=== PATIENT | female | born 1965 | race Caucasian/White ===

== ENCOUNTER 2024-06-05 10:07 | Emergency (ER) | payer OTHER, SELFPAY ==
[2024-06-05 10:14] VITALS: BP 110/72; PULSE 73; RESP 20; TEMP 36.9; O2SAT 99
--- NOTE | 2024-06-05 10:23 | ED.URI ---
HPI - URI/Sore Throat General Chief Complaint: Upper Respiratory Infection Stated Complaint: COVID test Time Seen by Provider: 06/05/24 10:24 Source: patient, RN notes reviewed and old records reviewed Mode of arrival: ambulatory Limitations: no limitations History of Present Illness HPI Narrative: 59 year old female who reports that she tested positive for COVID on Tuesday06/01/2024 with symptoms of illness starting on the 05/30/2024 which included body aches, fevers, cough, sinus congestion. Patient reports that she had diarrhea yesterday denies any nausea or vomiting. Patient reports that she has not taken any aspirin since yesterday morning and has not had any fever for the past 2 days. Patient reports that she did home COVID test yesterday and was still testing positive. MD elicited complaint: other (COVID positive 06/01/2024) Onset (ago): day(s) (symptoms started 05/30/2024, and tested positive for COVID 06/01/2024) Description of mucous: clear Able to tolerate fluids by mouth: Yes Treatments prior to arrival: other (has been taking Claritin and also aspirin with last does of aspirin yesterday) Related Data Home Medications ?Medication ?Instructions ?Recorded ?Confirmed ?Last Taken ?Type No Home Medications 06/05/24 Unknown History Allergies Allergy/AdvReac Type Severity Reaction Status Date / Time ciprofloxacin Allergy Unknown Unknown Verified 06/05/24 10:20 morphine Allergy Unknown Unknown Verified 06/05/24 10:20 Sulfa (Sulfonamide Allergy Unknown Unknown Verified 06/05/24 10:20 Antibiotics) Review of Systems Review of Systems: CONSTITUTIONAL: Denies present feeling of malaise, chills, sweats, or fever. EYES: Denies visual changes, redness, or discharge. ENT: Reports rhinorrhea, congestion, no sinus pain, no otalgia and no sore throat. CARDIOVASCULAR: Denies chest pain, palpitations, or edema. RESPIRATORY: Reports cough.? Denies dyspnea. GASTROINTESTINAL: Denies abdominal pain, nausea, vomiting, diarrhea SKIN: Denies rash or itching. MUSCULOSKELETAL: Denies resolved myalgia. NEUROLOGIC: Denies headache. All systems reviewed & are unremarkable except as noted in HPI and below PMFSH Past Medical History Medical History (Updated 06/05/24 @ 11:20 by Manuela Beaver NP) Bronchitis Social History Social History (Updated 06/05/24 @ 11:21 by Manuela Beaver NP) Alcohol intake: current Alcohol use details: rare social Substance use type: does not use Living arrangements: with family Gender identity (if verbalized by the patient): Female Comments At time of signature, agree with nursing past medical, surgical, social and family history. There is no relevant family history pertinent to the presenting complaint Exam Narrative: GENERAL: Well-appearing, well-nourished, and in no acute distress. HEAD: Normocephalic EYES: PERRLA, conjunctivae clear ENT: Nares clear, turbinates edematous and erythematous, clear discharge. Mucous membranes moist. TM pearly russell with dull light reflex bilaterally; no tragal tenderness. Oropharynx erythematous without lesions. Tonsils not enlarged and without exudate, no drooling, no hoarseness, no trismus, uvula midline.post nasal drainage. NECK: Supple. No lymphadenopathy CHEST: Clear to auscultation, breath sounds equal. No wheezing, rhonchi, rales, or stridor. No respiratory distress, speaks in full sentences.no acute cough noted SAO2 99% on room air HEART: Regular rate and rhythm. No murmur heard. SKIN: Warm, dry, no rash. NEURO: Alert and oriented x3. PSYCH: Normal mood and affect Course Course Emergency Course: Patient is aware of diagnosis, understands and agrees to treatment plan.? Anticipatory guidance given.? Patient agrees to follow-up as directed and is aware of reasons to seek care at the emergency department. Portions of this record may have been created with voice recognition software Level of Care: Express Care Visit Vital Signs Vital signs: Vital Signs Temperature 36.9 C 06/05/24 10:14 Pulse Rate 73 06/05/24 10:14 Respiratory Rate 20 06/05/24 10:14 Blood Pressure 110/72 06/05/24 10:14 Pulse Oximetry 99 06/05/24 10:14 Oxygen Delivery Room Air 06/05/24 10:14 Temperature 36.9 C 06/05/24 10:14 Pulse Rate 73 06/05/24 10:14 Respiratory Rate 20 06/05/24 10:14 Blood Pressure 110/72 06/05/24 10:14 Pulse Oximetry 99 06/05/24 10:14 Oxygen Delivery Room Air 06/05/24 10:14 Reviewed MDM - URI/Sore Throat MDM Narrative Medical decision making narrative: Differential diagnosis considered: Lowry virus, strep pharyngitis, allergic rhinitis, upper respiratory tract infection, sinusitis, rhinosinusitis, nasopharyngitis. viral pharyngitis, otitis media, otitis externa, pneumonia, bronchitis, viral cough syndrome, viral syndrome, and influenza.? Exam findings show no acute concerns or changes; patient is non-toxic appearing and is in no distress.? Patient is appropriate for outpatient treatment and follow-up. Differential Diagnosis Differential diagnosis: Likely upper respiratory infection, sinusitis, viral infection, influenza and other (COVID) Medical Records Attestation: I reviewed the patient's medical records. Lab Data Attestation: I reviewed the patient's lab results. Lab results narrative: COVID antigen positive, influenza A negative, Influenza B negative Critical Care Time Critical Care Time Critical Care Time: No Discharge Plan Discharge Clinical Impression: COVID-19 Patient Disposition: Home, Self-Care Condition: Stable Instructions: How to Recover from COVID-19 at Home (ED) Additional Instructions: Increase fluids especially juices and water Dmje-imd-tagtfdb cough and cold medicine of your choice for your symptoms Zyrtec Claritin or Rafaela daily Tylenol or ibuprofen for any fever pain heat to the face 20-30 minutes 4-6 times a day for pain Salt water gargles, throat lozenges or throat sprays as desired Must be fever free for 24 hours without use of Tylenol or ibuprofen before you can return to work. You actually may test positive for at least 2 weeks after initial infection COVID-19 DISCHARGE The following recommendations have been made by the CDC and local Health Departments, regarding COVID-19: Those individuals with mild cases of COVID-19 can generally be discontinued from isolation, 5 AFTER the onset of symptoms AND the resolution of fever for 24hrs (without the use of fever-reducing medications) Those individuals who were asymptomatic, and tested positive, are discontinued from isolation 10 days AFTER their first positive COVID-19 test Those individuals with SEVERE to CRITICAL illness or immunocompromised diseases may require up to 20 days of home isolation or hospitalization Majority of mild to moderate cases can be treated at home, without hospitalization or prescription medications You do not need a negative test result to return to work/school, assuming the above recommendations have been met and you are not symptomatic. At this time, return to work/school notes will not be provided. Guidelines from the local Health Department, CDC, and workplace are expected to be followed. All individuals in the household need to remained quarantined for up to 14 days if asymptomatic OR 10 days after the start of symptoms. Everyone in the home DOES NOT require testing, they are presumed positive and should quarantine as directed. Treating symptoms for mild to moderate cases may include: Tylenol, Flonase/nasal spray, OTC cold/flu medications recommended from your provider or any necessary prescription medications provided at your visit or from your PCP IF YOU TESTED NEGATIVE If you are symptomatic with reason to believe you have COVID-19, there is a high possibility your rapid test may not have detected the virus. Rapid testing is dependent on timing and viral load and may have a false-negative reading You should follow appropriate guidelines regarding quarantine, hand washing, mask wearing, and social distancing You may be sent for PCR testing as an outpatient to the [facility] site Common Adult Symptoms: Fever/chills Cough Shortness of breath Fatigue, muscle aches Headache Loss of taste/smell Sore throat, congestion, runny nose GI symptoms (nausea, vomiting, diarrhea) Common Pediatric Symptoms Cough Fever GI symptoms (diarrhea, upset stomach, nausea, vomiting) Symptoms may differ in severity however, most cases do not require hospitalization. WHEN TO SEEK ER EVALUATION/TREATMENT Severe/persistent shortness of breath or difficulty breathing Elevated, persistent fevers without resolution with fever-reducing medications Chest pain Extreme fatigue/lethargy Complications of pre-existing disease Patient Language: Cook Islander Prescriptions: No Action No Home Medications Follow-up/Referrals: Denia,Kaveh Kapoor MD [Primary Care Provider] - Stand Alone Forms: Work/School Release IP Time of Disposition: 11:03 Quality Ceci Coma Scale Eyes: Open Verbal: Oriented and Alert Motor: Follows Commands [place] Coma Total Score: 15
[2024-06-05 10:58] LABS: EDCOVIDSCREEN Positive (Negative); EDINFLUASCREEN Negative (Negative); EDINFLUBSCREEN Negative (Negative)
--- OUTSIDE RECORDS SUMMARY | 2024-06-12 04:23 | XMS_ITS | Encounter Summary ---
Author Organization [facility] Address [address] 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 Name Role Phone Unavailable Primary Care Provider Unavailabl e Reason for Visit * Reason Comments Imm Inj Encounter Details Date Type Department Care Team (Late st Contact Info) Description 2016 10:15 AM CDT Office Visit [facility] AT [address] [phone] Screening-pulmonary TB (Primary Dx) Social History Tobacco Use Types Packs/Day Years Used Date Smoking Tobacco: Never Assessed Sex and Gender Information Value Date Recorded Sex Assigned at Not on file Gender Identity Not on file Sexual Orientation Not on file documented as of this encounter Patient Instructions * Patient Instructions* Dawn Chong APRN-CNP - 2016 9:41 AM CDT PPD admin documented in this encounter Progress Notes * Dawn Chong APRN-CNP - 2016 9:51 AM CDT PPD admin documented in this encounter Plan of Treatment Not on file documented as of this encounter Procedures Procedure Name Priority Date/Time Associated Diagnosis Comments SKIN TEST PPD - POINT OF CARE Routine 2016 Screening-pulmonary TB documented in this encounter Results * SKIN TEST PPD - POINT OF CARE (2016) PPD neg MISCELLANEOUS SAMPLE S / Unknown 2016 Dawn Chong APRN-[employer] C[employer]ER SERVICE REPRESENTATIVE LAB - POINT OF CARE ORDERABLES documented in this encounter Visit Diagnoses Diagnosis Screening-pulmonary TB- Primary Screening examination for pulmonary tuberculosis documented in this encounter Administered Medications Administered Medications Medication Order MAR Action Action Date Dose Rate Site PPD Intradermal Given 2016 0.1 mL Left Forearm documented in this encounter
--- OUTSIDE RECORDS SUMMARY | 2024-06-12 04:23 | XMS_ITS | Data Portability ---
Author Organization [facility] Address [address] [place] [address] Assessment No assessment recorded. Plan of Treatment Reminders Order Date Submit Date Provider Last Modified By Organization Details Last Modified Time Details Appointments None recorded. 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 body aches headaches, fever, fatigue. 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 banner 300 2019 020 [facility] ([facility] [address] [place], [address], 0 16:33:00 Referral None recorded. Procedures None recorded. Surgeries None recorded. Imaging None recorded. Medication Orders None recorded. Patient TargetsNo targets recorded. Patient Instructions Encounter Date Encounter Id Patient Instructions Last Modified By Organization Details Last Modified Time 12/21/2019 [id number] Reviewed the following recommendations: -Stay home and separate from others as much as possible. -Monitor your symptoms and seek medical attention for trouble breathing, persistent chest pain, confusion, or bluish lips or face. -Wear a mask if you must be around other people. -Wash your hands often for 20 seconds with soap and water and clean high-touch surfaces daily -You may discontinue home isolation if your symptoms are improving and it has been 10 days since symptoms started. [email or web address] Not available 12/21/2019 14:19:49 Reason for Referral None Reported. 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 Negat vern resul ts must be combi catalina with clini trixie obser vatio ns, patie nt histo ry, and epide miolo gical infor matio n Perfo rmanc e rachel cteri stics for the TaqPa th COVID -19 Combo , Real- time PCR Diagn ostic test have been deter mined by the [facility] harsh kwong and are incor porat ed as part of the Emerg ency Use Autho rizat ion. 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 [id number] Not Available [facility] (Lab) [address] [place], [address], 12/24/2019 16:33:00 Result Notes None recorded. Medical Equipment None Reported. Vitals None Recorded Social History None recorded. Functional Status None recorded. Mental Status None recorded. Family History Nothing Reported. Medical History No medical history recorded. Gynecological HistoryNo gynecological history recorded. Obstetrics History GPAL:G 0 P 0 0 0 0 Past Encounters Encounter ID Performer Location Encounter Start Date Encounter Closed Date Diagnosis/Indication Diagnosis SNOMED-CT Code Diagnosis ICD10 Code Diagnosis Note [id number] MAURICIO Levi [address] [place] [address] 12/21/2019 14:07:40 12/24/2019 08:57:08 Suspected COVID-19 207919142 Z03.818 D/w pt the current pandemic of COVID-19 and call for social isolation in order to blunt the curve and minimize risk and spread. Encouraged patient and family to take restrictio ns seriously. They have verbalized understand ing of such. Viral syndrome 687650480 B34.9 Coronavirus infection 18 8835209 B34.2 Health Concerns Section Related Observation LastModified by Organization Detai ls LastModified Time None Recorded Concern Status LastModified by Organization Details LastModified Time None Recorded Advance Directives Directive None Recorded Payers Encounter Date Sequence Insurance Name Policy Number Policy Saenz Covered Member ID Saenz Member ID Guarantor Name 12/21/2019 1 [place] [id number] Blank Cowan [id number] Blank Cowan Notes Date Note Type Note Provider Name and Address Organization Details Recorded Time 12/21/2019 text/html COVID ScreeningReported bypatient.Onset/Durati on of fever:fever Associated Symptoms:coughCOVID-19 Symptoms September 2019Reported bypatient.COVID-19 Signs and Symptomscough resolved; cough same; fever resolved; fever same; shortness of breath resolved; chills resolved; repeated shaking with chills resolved; muscle pain resolved; muscle pain same; headache resolved; headache improving; sore throat resolved; loss of taste or smell resolved; vomiting or diarrhea resolved; fatigue resolved; fatigue same; anorexia resolved Contacts and Exposureclose contact with a confirmed or suspected case of COVID-19; 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 body aches headaches, fever, fatigue. 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 HEIDI Dooley NP Attn: Accounting,[address] [place], [address], [facility] 12/21/2019 14:21:19 OBGyn Episode No OBEpisode recorded.
--- OUTSIDE RECORDS SUMMARY | 2024-06-12 04:23 | XMS_ITS | Encounter Summary ---
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 Name Role Phone Kaveh Loza MD Primary Care Provider [phone] Encounter Details Date Type Department Care Team (Latest Contact Info) Description 12/11/2020 Travel Social History Tobacco Use Types Packs/Day Years Used Date Smoking Tobacco: Former Cigarettes 1 10 0 07/30/1989 - 07/31/1999 Smokeless Tobacco: Never Alcohol Use Standard Drinks/Week Comments Yes 0 (1 standard drink = 0.6 oz pur e alcohol) Rare Comments Unknown Sex and Gender Information Value Date Recorded Sex Assigned at Not on file Legal Sex Female 12:07 AM CDT Gender Identity Not on file Sexual Orientation Not on file COVID-19 Exposure Response Date Recorded In the last month, have you been in contact with someone who was confirmed or suspected to have Coronavirus / COVID-19? No / Unsure 12/11/2020 2:17 PM CDT documented as of this encounter Plan of Treatment Not on file documented as of this encounter Visit Diagnoses Not on filedocumented in this encounter Care Teams Fruit Buying Grader Relationship Specialty Start Date End Date Kaveh Loza MD PCP - General Internal Medicine 06/04/20 10/19/22 documented as of this encounter
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
--- OUTSIDE RECORDS SUMMARY | 2024-06-12 04:23 | XMS_ITS | Encounter Summary ---
Author Organization [facility] Address [address] [place] [address] Phone Care Team Providers Care Household Worker Name Role Phone Kaveh Loza MD Primary Care Provider [phone] Encounter Details Date Type Department Care Team (Late st Contact Info) Description 08/04/2020 Telephone [facility] - Family Medicine [facility] [address] [place] [address] Camron Betancourt, DO [address] [phone] Social History Tobacco Use Types Packs/Day Years [...] have Coronavirus / COVID-19? No / Unsure 07/30/2020 8:47 AM CHANGE RELEASE MANAGER documented as of this encounter Miscellaneous Notes * Telephone Encounter - Erica, Sondra R - 08/04/2020 2:26 PM CST Patient notified of Colonoscopy results, and verbalized understanding. Recall placed GE RELEASE MANAGER * Telephone Encounter - Sondra Maldonado - 08/04/2020 2:26 PM CST ----- Message from Agatha Talamantes RN sent at 08/04/2020 1:50 PM CHANGE RELEASE MANAGER ----- ----- Message ----- From: Camron Betancourt DO Sent: 08/02/2020 10:15 AM CHANGE RELEASE MANAGER To: Génesis Dean RN Polyp show no cancer. Recheck colonoscopy in 5 years due to adenomatous colon polyps. GE RELEASE MANAGER documented in this encounter Plan of Treatment Not on file documented as of this encounter Visit Diagnoses Not on filedocumented in this encounter Care Teams Household Worker Relationship Specialty Start Date End Date Kaveh Loza MD PCP - General Internal Medicine 06/04/20 10/19/22 documented as of this encounter
--- OUTSIDE RECORDS SUMMARY | 2024-06-12 04:23 | XMS_ITS | Encounter Summary ---
Author Organization [facility] Address [address] [place] [address] Care Team Providers Care Market Research Senior Project Manager Name Role Phone Unavailable Primary Care Provider Unavailabl e Encounter Details Date Type Department Care Team (Late st Contact Info) Description 04/08/1998 Orders Only [facility] - Laboratory [address] [place] [id number] ProviderGaston MD Social History Tobacco Use Types Packs/Day Years Used Date Smoking Tobacco: Never Assessed Sex and Gender Information Value Date Recorded Sex Assigned at Not on file Gender Identity Not on file Sexual Orientation Not on file documented as of this encounter Plan of Treatment Not on file documented as of this encounter Procedures Procedure Name Priority Date/Time Associated Diagnosis Comments CYTOLOGY SMEAR PAP THIN PREP [facility] 04/08/1998 1:49 PM COMPLAINT EVALUATION SUPERVISOR documented in this encounter Results * CYTOLOGY SMEAR PAP THIN PREP (04/08/1998 1:49 PM COMPLAINT EVALUATION SUPERVISOR) Result CASE NUMBER [id number] Comment: ORDERING PHYSICIAN ??MATHIEU JOHNS SPECIMEN TYPE ?PAP Smear Date ? 04/08/1998 Procedure ?Cervical/Endocervical, 1 Vial for Thin Prep Received Specimen Adequacy ?Satisfactory for Evaluation Categorization ? Within Normal Limits Snomed. ?04/21/1998 1142 <1> American Sign Language Interpreter ? Chantale Villa(ASCP) PAP Footnote ? The PAP smear is only a screening procedure to aid in the detection of cervical cancer and its precursors. ??It is not a diagnostic procedure and should not be used as the sole means to detect cervical cancer. ??Both false negative and false positive results have been experienced. MISCELLANEOUS SAMPLES / Unknown 04/08/1998 1:49 PM COMPLAINT EVALUATION SUPERVISOR 04/18/1998 1:49 PM COMPLAINT EVALUATION SUPERVISOR Historical Provider LAB - PATHOLOGY/C YTOLOGY ORDERABLES documented in this encounter Visit Diagnoses Not on filedocumented in this encounter
--- OUTSIDE RECORDS SUMMARY | 2024-06-12 04:23 | XMS_ITS | Encounter Summary ---
Author Organization [facility] Address [address] [place] [address] Care Team Providers Care Warble Saw Operator Name Role Phone Unavailable Primary Care Provider Unavailabl e Encounter Details Date Type Department Care Team (Late st Contact Info) Description 10/25/2017 Lab Requisition [facility] Care DermPath Lab [address] [place] [id number] Joshua Holt MD PROFESSIONAL [employer] [place], [place] [id number] Social History Tobacco Use Types Packs/Day Years Used Date Smoking Tobacco: Never Assessed Sex and Gender Information Value Date Recorded Sex Assigned at Not on file Gender Identity Not on file Sexual Orientation Not on file documented as of this encounter Plan of Treatment Not on file documented as of this encounter Procedures Procedure Name Priority Date/Time Associated Diagnosis Comments DERMATOPATHOLOGY Routine 10/21/2017 12:0 0 AM CDT documented in this encounter Results * DERMATOPATHOLOGY (10/21/2017 12:00 AM CDT) Case Report Dermatopathology Report ? Case: [id number] ? Authorizing Provider: ??Joshua Holt MD ?Collected: ? 10/21/2017 12:00 AM ? Pathologist: ? Nohelia Reid MD ?Received: ?10/25/2017 11:35 AM ? Specimens: ?? A) - Skin, right sup medial breast ? B) - Skin, right distal ant thigh ? 8 1:04 PM T DERMATOPATHOLOGY LABORATORY Final Diagnosis Specimen A. SKIN, right sup medial breast: PIGMENTED SEBORRHEIC KERATOSIS (L82.1) NOT PRESENT AT SAMPLED MARGIN Specimen B. SKIN, right distal ant thigh: SEBORRHEIC KERATOSIS, MACULAR (L82.1) PRESENT AT MARGIN 8 1:04 PM T DERMATOPATHOLOGY LABORATORY Clinical History A-B: R/O SK, ISK, dys nevus. Check margins. 1:04 PM T DERMATOPATHOLOGY LABORATORY Gross Description Specimen A: Received is one formalin filled container labeled with the patient's name and designated right sup medial breast. The specimen consists of a shave biopsy measuring [id number]. The margin is inked green. Jar 0. Specimen B: Received is one formalin filled container labeled with the patient's name and designated right distal ant thigh. The specimen consists of a shave biopsy measuring [id number]. The margin is inked green. Jar 0. 8 1:04 PM CDT DERMATOPATHOLOGY LABORATORY Microscopic Description Specimen A. SKIN, right sup medial breast: Sections show an acanthotic lesion composed of relatively uniform keratinocytes. There is hyperkeratosis and pseudo horn cysts. Pigment is present in the keratinocytes composing this tumor. This lesion is not present at the sampled margin of the specimen. Specimen B. SKIN, right distal ant thigh: Sections show a relatively broad, flat proliferation of small keratinocytes. The surface is gently papillated, and there is increased basilar pigmentation. This lesion is present at the margin of the specimen. 8 1:04 PM CDT DERMATOPATHOLOGY LABORATORY Disclaimer An external and internal positive and negative controls are appropriate for the histochemical, immunohistochemical and immunofluorescence stain(s) in this case (if any), except where stated explicitly. The performance characteristics of the stain(s) cited in this report were developed and its performance characteristic determined by the Dermatopathology Laboratory at [facility]. These tests need not be, and therefore are not, approved by the [place] Food and Drug Administration. The tests are used for clinical purposes. Billing Codes Specimen Charges Stain Charges 95617 49248 1 1 8 1:04 PM CDT DERMATOPATHOLOGY LABORATORY Embedded Images 1:04 PM CDT DERMATOPATHOLOGY LABORATORY Pathology/Cytology TISSUE SPECIMEN FROM SKIN / Unknown 10/21/2017 10/25/2017 11:35 AM CDT Miscellaneous samples (specimen) TISSUE SPECIMEN FROM SKIN / Unknown 10/21/2017 10/25/2017 11:35 AM CDT Joshua Holt MD LAB - PATHOLOGY/CYTO LOGY ORDERABLES DERMATOPATHOLOGY LABORATORY [facility] - Department of Dermatology [address] [place] [address], [address] [place] [address], [facility] [phone] documented in this encounter Visit Diagnoses Not on filedocumented in this encounter
--- OUTSIDE RECORDS SUMMARY | 2024-06-12 04:23 | XMS_ITS | Encounter Summary ---
Author Organization [facility] Address [address] [place] [address] Phone Care Team Providers Care Burr Grinder Name Role Phone Kaveh Loza MD Primary Care Provider [phone] Encounter Details Date Type Department Care Team (Late st Contact Info) Description 06/11/2020 Telephone [facility] - Gastroenterology - [place] [address] [place] [address] Camron Betancourt, DO [address] [id number] Social History Tobacco Use Types Packs/Day Years Used Date Smoking Tobacco: Never Assessed Comments Unknown Sex and Gender Information Value Date Recorded Sex Assigned at Not on file Legal Sex Female 12:07 AM CDT Gender Identity Not on file Sexual Orientation Not on file documented as of this encounter Miscellaneous Notes * Telephone Encounter - Imelda Rollins - 06/11/2020 2:06 PM CST Colon / split prep instructions G OPERATOR documented in this encounter Plan of Treatment Not on file documented as of this encounter Visit Diagnoses Not on filedocumented in this encounter Care Teams Burr Grinder Relationship Specialty Start Date End Date Kaveh Loza MD PCP - General Internal Medicine 06/04/20 10/19/22 documented as of this encounter
--- OUTSIDE RECORDS SUMMARY | 2024-06-12 04:23 | XMS_ITS | Encounter Summary ---
Author Organization [employer] Care Team Providers Care Training Development Director Name Role Phone Provider, None Primary Care Provider Unavailabl e Encounter Details Date Type Department Care Team (Latest Contact Info) Description 10/20/2022 Travel Social History Tobacco Use Types Packs/Day [...] AM CDT documented as of this encounter Plan of Treatment Not on file documented as of this encounter Visit Diagnoses Not on filedocumented in this encounter Care Teams Training Development Director Relationship Specialty Start Date End Date Provider, None [place] PCP - General 10/20/22 documented as of this encounter
--- OUTSIDE RECORDS SUMMARY | 2024-06-12 04:23 | XMS_ITS | Encounter Summary ---
Author Organization [employer] Care Team Providers Care Tile Shader Name Role Phone Kaveh Loza MD Primary Care Provider [phone] Encounter Details Date Type Department Care Team (Latest Contact Info) Description 07/27/2020 Travel Social History Tobacco Use Types Packs/Day Years Used Date Smoking Tobacco: Former Cigarettes 1 10 Smokeless Tobacco: Never Comments:Quit 30 yrs ago Alcohol Use Standard Drinks/Week Comments Yes 0 [...] have Coronavirus / COVID-19? No / Unsure 07/27/2020 10:57 AM VALET MANAGER documented as of this encounter Plan of Treatment Not on file documented as of this encounter Visit Diagnoses Not on filedocumented in this encounter Care Teams Tile Shader Relationship Specialty Start Date End Date Kaveh Loza MD PCP - General Internal Medicine 06/04/20 10/19/22 documented as of this encounter
--- OUTSIDE RECORDS SUMMARY | 2024-06-12 04:23 | XMS_ITS | Encounter Summary ---
Author Organization [facility] Address [address] [place] [address] Phone Care Team Providers Care Sales Facilitator Name Role Phone Kaveh Loza MD Primary Care Provider [phone] Reason for Visit * Radiology Services (Routine) - Closed Specialty Diagnoses / Procedures Referred By Jacey samuel Referred To Contact Radiology Diagnoses Left ankle pain, unspecified chronicity Procedures XR ANKLE 3 OR MORE VIEWS LEFT XR ANKLE 2 VIEWS LEFT Marcin Sharp DPM [address] [place] [address] Phone: tel: fax: Referral ID Status Reason Start Date Expiration Date Visits Re quested Visits Authorized [id number] Closed 12/08/2020 1 1 Encounter Details Date Type Department Care Team (Latest Contact Info) Description 12/11/2020 2:15 PM CDT - 12/11/2020 11:59 PM CDT Hospital [facility] [address] [place] [id number] Marcin Sharp DPM [address] [place] [id number] Discharge Disposition: Discharged to home or Selfcare [...] PM CDT documented as of this encounter Medications at Time of Discharge Ascorbic Acid (Vitamin C) 1000 MG Tablet Take 120 mg by mouth. Cholecalciferol (VITAMIN D3 PO) Take by mouth Every 3 months. documented as of this encounter Plan of Treatment Not on file documented as of this encounter Procedures Procedure Name Priority Date/Time Associated Diagnosis Comments XR ANKLE 3 OR MORE VIEWS LEFT Routine 12/11/2020 2:54 PM CDT Left ankle pain, unspecified chronicity documented in this encounter Results * XR ANKLE 3 OR MORE VIEWS LEFT (12/11/2020 2:54 PM CDT) Anatomical Region Laterality Modality LOWER EXTREMITY, ankle Left Digital R adiography 12/12/2020 8:27 AM CDT Impressions 12/12/2020 8:31 AM CDT IMPRESSION: ?? No acute osseous abnormality. Narrative 12/12/2020 8:31 AM CDT EXAM DESCRIPTION: ?XR ANKLE 3 OR MORE VIEWS LEFT REASON FOR STUDY: ?? Chronic sharp left ankle pain radiating upwards into the upper tibia/fibula with associated burning sensation through the left foot. ??Patient works her feet a lot. ??Unspecified surgery to left ankle approximately 40 years ago. TECHNIQUE: ?? AP, lateral, and oblique radiographic views acquired of the left ankle. COMPARISON: ?? 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 ??No subluxation. ??No suspicious osseous lesions. ?? 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 SOFT TISSUES: ??Unremarkable. OTHER: ??No other significant finding. THIS IS AN ELECTRONICALLY VERIFIED FINAL REPORT 12/12/2020 8:27 AM - Electronically signed by Anderson Flores M.D. LIBRADO: LIBRADO D: ??12/12/2020 8:27 AM T: ??12/12/2020 8:27 AM Report ID: [id number] Reading Location: ??[id number] Procedure Note Anderson Flores MD - 12/12/2020 EXAM DESCRIPTION: XR ANKLE 3 OR MORE VIEWS LEFT REASON FOR STUDY: Chronic sharp left ankle pain radiating upwards into the upper tibia/fibula with associated burning sensation through the left foot. Patient works her feet a lot. Unspecified surgery to left ankle approximately 40 years ago. TECHNIQUE: AP, lateral, and oblique radiographic views acquired of the left ankle. 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 No subluxation. No suspicious osseous lesions. 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 SOFT TISSUES: Unremarkable. OTHER: No other significant finding. THIS IS AN ELECTRONICALLY VERIFIED FINAL REPORT 12/12/2020 8:27 AM - Electronically signed by Anderson Flores M.D. LIBRADO: LIBRADO Report ID: [id number] Reading Location: [id number] IMPRESSION: No acute osseous abnormality. Marcin Sharp DPM IM DIAGNOSTIC ORDERABLES Fin al Result documented in this encounter Visit Diagnoses Diagnosis Left ankle pain, unspecified chronicity documented in this encounter Care Teams Sales Facilitator Relationship Specialty Start Date End Date Kaveh Loza MD PCP - General Internal Medicine 06/04/20 10/19/22 documented as of this encounter
--- OUTSIDE RECORDS SUMMARY | 2024-06-12 04:23 | XMS_ITS | Encounter Summary ---
Author Organization [facility] Address [address] [place] [address] Phone Care Team Providers Care Agricultural Produce Packer Name Role Phone Kaveh Loza MD Primary Care Provider [phone] Encounter Details Date Type Department Care Team (Late st Contact Info) Description 07/24/2020 Telephone [facility] - Gastroenterology - [place] [address] [place] [address] Camron Betancourt, DO [address] [address] Social History Tobacco Use Types Packs/Day Years [...] encounter Miscellaneous Notes * Telephone Encounter - Génesis Dean RN - 07/24/2020 8:50 AM CST COVID-19 Testing Priority ?? Close contact with a suspected or laboratory confirmed COVID-19 patient within 14 days of symptom onset? No/Unsure (Previous Answer - No) ?? History of travel from affected geographic areas within 14 days of symptom onset? No/Unsure (Previous Answer - No) ?? Patient is from facility with clusters of infection not due to influenza and is suspected to be due to COVID-19? No (Previous Answer - No) ?? Patient is at higher risk for complications of COVID-19 (age >= 65 years, immunocompromised, chronic medical conditions, etc)? No (Previous Answer - No) ?? Patient is a healthcare worker or cutting table operator first? No (Previous Answer - No) ?? Patient is a resident of a congregate living facility (SNF, long-term, shelter)? No (Previous Answer - No) ?? The patient has cough or shortness of breath or any two of the following; fever, chills, muscle pain, headache, sore throat, new loss of smell, or new loss of taste (if not already answered in Travel & Exposure Screening)? No (Previous Answer - No) ARMS SALES ASSOCIATE documented in this encounter Plan of Treatment Not on file documented as of this encounter Results * SARS-COV-2 BY MOLECULAR (07/27/2020 11:00 AM FIREARMS SALES ASSOCIATE) SARSCOV2 NOT DETECTED (Referen ce Range for this test is Not Detected ) [facility] THERMOFISHER FAST DX 07/28/2020 3:54 AM FIREARMS SALES ASSOCIATE [facility] Comment:This test was perfor med by a PCR method. Other NASOPHARYNGEAL STRUCTURE / Unknown Non-Phlebotomy Collection / Unknown 07/27/2020 11:00 AM FIREARMS SALES ASSOCIATE 07/27/2020 12:12 PM FIREARMS SALES ASSOCIATE Narrative [facility] - 07/28/2020 3:54 AM FIREARMS SALES ASSOCIATE Authorized Fact Sheets about this test for providers and patients are available at: https://www.fda.gov/medical-devices/mjgexivoj-fxowgnjyjx-xromsyt-devices/emergen cy-us e-authorizations us Camron Betancourt DO MICROBIOLOGY - GENERAL ORDERABL ES Final Result [facility] [address] [place] [address], documented in this encounter Visit Diagnoses Diagnosis Preop testing- Primary Preoperative examination, unspecified documented in this encounter Care Teams Agricultural Produce Packer Relationship Specialty Start Date End Date Kaveh Loza MD PCP - General Internal Medicine 06/04/20 10/19/22 documented as of this encounter
--- OUTSIDE RECORDS SUMMARY | 2024-06-12 04:23 | XMS_ITS | Referral Summary ---
Author Organization [facility] Address [address] [place] [address] Care Team Providers Care Hide Shaker Name Role Phone Unavailable Primary Care Provider Unavailabl e Source Comments [facility],non-owned Affiliates and Associated Physician Practices is amultiple site organization consisting of ambulatory clinics and hospital sitesin [place], [place], [place] and [place]. This disclosure is being madepursuant to the Care Everywhere program and may not contain all information available regarding this patient. Last updated 18.[facility] [employer] Allergies Active Allergy Reactions Criticality Noted Date Comments Hydromorphone 01/23/2017 Morphine 01/23/2017 Sulfa Drugs 01/23/2017 Medications * Be aware that medications may not be up to date on this document. Alwaysverify current medications with the patient. Medication Sig Dispensed Refills Start Date End Date Status fluticasone propionate (FLONASE) 50 MCG/ACT nasal sprayIndications:ETD (Eustachian tube dysfunction), bilateral,Rhinosinusi tis Cosby 2 Sprays into each nostril once daily 1 Bottle 01/23/2017 Active Social History Tobacco Use Types Packs/Day Years Used Date Smoking Tobacco: Never Assessed Sex and Gender Information Value Date Recorded Sex Assigned at Not on file Gender Identity Not on file Sexual Orientation Not on file Last Filed Vital Signs Vital Sign Reading Time Taken Comments Blood Pressure 128/72 01/23/2017 2:13 PM CDT Pulse 78 01/23/2017 2:13 PM CDT Temperature 36.5 ??C (97.7 ??F) 01/23/2017 2:13 PM CD T Respiratory Rate - - Oxygen Saturation 98% 01/23/2017 2:13 PM CDT Inhaled Oxygen Concentration - - Weight 75.8 kg (167 lb) 01/23/2017 2:13 PM CDT Height 162.6 cm (5' 4 ) 01/23/2017 2:13 PM CDT Body Mass Index 28.67 01/23/2017 2:13 PM CDT Plan of Treatment Not on file Procedures Procedure Name Priority Date/Time Associated Diagnosis Comments CYTOLOGY SMEAR PAP THIN PREP DURAN 04/08/1998 1:49 PM BRAIDER TENDER from Last 3 Months or Most Recently Relevant to Health Maintenance Results * CYTOLOGY SMEAR PAP THIN PREP (04/08/1998 1:49 PM BRAIDER TENDER) Result CASE NUMBER [id number] Comment: ORDERING PHYSICIAN ??MATHIEU JOHNS SPECIMEN TYPE ?PAP Smear Date ? 04/08/1998 Procedure ?Cervical/Endocervical, 1 Vial for Thin Prep Received Specimen Adequacy ?Satisfactory for Evaluation Categorization ? Within Normal Limits Snomed. ?04/21/1998 1142 <1> Film Composer ? Chantale Villa([facility]) PAP Footnote ? The PAP smear is only a screening procedure to aid in the detection of cervical cancer and its precursors. ??It is not a diagnostic procedure and should not be used as the sole means to detect cervical cancer. ??Both false negative and false positive results have been experienced. MISCELLANEOUS SAMPLES / Unknown 04/08/1998 1:49 PM BRAIDER TENDER 04/18/1998 1:49 PM BRAIDER TENDER Historical Provider LAB - PATHOLOGY/C YTOLOGY ORDERABLES from Last 3 Months or Most Recently Relevant to Health Maintenance Administered Medications
--- OUTSIDE RECORDS SUMMARY | 2024-06-12 04:23 | XMS_ITS | Clinical Summary ---
Author Organization [facility] Address [address] [place] [address] Phone Care Team Providers Care Floor Covering Printer Assistant Name Role Phone Provider, None Primary Care Provider Unavailabl e Allergies Active Allergy Reactions Criticality Noted Date Comments Hydromorphone Hives 07/10/2020 Shellfish Allergy Hives 07/10/2020 Sulfa Antibiotics Hives 07/10/2020 Medications Cholecalciferol (VITAMIN D3 PO) Take by mouth Every 3 months. Active Ascorbic Acid (Vitamin C) 1000 MG Tablet Take 120 mg by mouth. Active oxyCODONE-acetam inophen (Percocet) 5-325 MG TabletIndication s:Closed fracture of multiple ribs of left side, initial encounter Take 1 Tablet by mouth every 6 hours as needed for Severe pain. 20 Tablet 10/20/2022 Active Family History Medical History Relation Name Comments Cancer Father Lung No Known Problems Mother Relation Name Status Comments Father Mother Alive Social History Tobacco Use Types Packs/Day Years [...] Mass Index 27.98 10/20/2022 11:47 AM CDT Plan of Treatment Health Maintenance Due Date Last Done Comments Hepatitis C Virus (HCV) Screening 1963 Pap Smear 02/25/1984 Cervical Cancer Screening (CCS) 1993 HPV/Cotest 1993 Cologuard 2013 Immunochemical Fecal Occult Blood 2013 Mammogram 2013 Pneumococcal Immunization (50+ years) (1 of 1 - PCV) 2013 Zoster Immunization (1 of 2) 2013 Hepatitis B Immunization (3 of 3 - 19+ 3-dose series) 06/22/2022 04/27/2022, 10/10/2014 Influenza Immunization (#1) 2024 SARS-COV-2 Immunization ( season) 2024 05/25/2021, 12/13/2020, 11/13/2020, Additional history exists Colonoscopy 07/30/2025 07/30/2020 Colorectal Cancer Screening 07/30/2025 Respiratory Syncytial Virus (RSV) Immunization (Adult) (1 - 1-dose 75+ series) 2038 07/30/2020 DTaP/Tdap/Td Immunization Discontinued 10/10/2014 Meningococcal Immunization (ACWY) Aged Out 10/10/2014 No longer eligible based on patient's age to complete this topic TdaP Immunization Completed 10/10/2014 Pneumococcal Immunization Combined Aged Out No longer eligible based on patient's age to complete this topic Rotavirus Immunization Aged Out No lo nger eligible based on patient's age to complete this topic Insurance [facility] Care Teams Floor Covering Printer Assistant Relationship Specialty Start Date End Date Provider, None [place] PCP - General 10/20/22
--- OUTSIDE RECORDS SUMMARY | 2024-06-12 04:23 | XMS_ITS | Encounter Summary ---
Author Organization [facility] Address [address] [place] [address] Care Team Providers Care Electrocardiogram Technician Name Role Phone Unavailable Primary Care Provider Unavailabl e Reason for Visit * Reason Comments Congestion Encounter Details Date Type Department Care Team (Late st Contact Info) Description 01/23/2017 2:00 PM CDT Office Visit [facility] AT [address] [phone] Provider, Carrie Exp [facility] ETD (eustachian tube dysfunction), bilateral (Primary Dx); Rhinosinusitis; Pulpitis Social History Tobacco Use Types Packs/Day Years Used Date Smoking Tobacco: Never Assessed Sex and Gender Information Value Date Recorded Sex Assigned at Not on file Gender Identity Not on file Sexual Orientation Not on file documented as of this encounter Last Filed [...] Mass Index 28.67 01/23/2017 2:13 PM CDT documented in this encounter Patient Instructions * Patient Instructions* Alma Rosa Mckay, [employer] - 01/23/2017 2:26 PM CDT Use Flonase per package instructions, Saline nasal mist to prevent nasal drying For nasal congestion if needed may use Sudafed 4 hours per package instructions Tylenol or Motrin as needed Claritin or Zyrtec per package instructions Cool Mist humidifier as needed If no improvement in 48-72 hours follow up with PCP Dr Loza or return to clinic Eustachian Tube Dysfunction WHAT YOU NEED TO KNOW: What is eustachian tube dysfunction? Eustachian tube dysfunction (ETD) is a condition that preventsyour eustachian tubes from opening properly. It can also cause them to become blocked. Eustachian tubes connect your middle ear to the back of your nose and throat. These tubes open and allow air to flow in and out when you sneeze, swallow, or yawn. What causes or increases my risk of ETD? ETD may be caused by swelling or buildup of mucus in your eustachian tubes. Allergies, a cold, or sinus infection can increase your risk for ETD. Smoking alsoincreases your risk for ETD. What are the signs and symptoms of ETD? ?? Fullness or pressure in your ears ?? Muffled hearing ?? Pain in one or both ears ?? Ringing in your ears ?? Popping or clicking feeling in your ears ?? Trouble keeping your balance How is ETD diagnosed? Your healthcare provider will ask about your symptoms. He will examine your ears, your nose, and the back of your throat. He may also do a hearing test. How is ETD treated? Your ETD may get better on its own without any treatment. You may need any of the following: ?? Exercises such as swallowing, yawning, or chewing gum may help to open your eustachian tubes. Your healthcare provider may also recommend that you take a deep breath and then blow with your mouth shut and your nostrils pinched closed. ?? Air pressure devices push air into your nose and eustachian tubes to help relieve air pressure in your ear. ?? Treatment for allergies such as decongestants, antihistamines, and nasal steroids may improve ETD. They may help decrease swelling of the eustachian tubes. ?? Ear tubes may help to keep your middle ear open. During this procedure, your healthcare providerwill cut a small hole in your eardrum. ?? A myringotomy is procedure to make a small cut in your eardrum and suction out fluid from your middle ear. ?? Tuboplasty is a procedure to widen your eustachian tubes. When should I contact my healthcare provider? ?? Your symptoms do not improve or get worse. ?? You have a fever. ?? You have any hearing loss. ?? You have questions or concerns about your condition or care. CARE AGREEMENT: You have the right to help plan your care. Learn about your health condition and how it may be treated. Discuss treatment options with your caregivers to decide what care you want to receive. You always have the right to refuse treatment. The above information is an pre parole counseling aide only. It is not intended as medical advice for individual conditions or treatments. Talk to your doctor, nurse or pharmacist before following any medical regimen to see if it is safe and effective for you. ?? 2016 [employer]. Information is for End User's use only and may not be sold, redistributed or otherwise used for commercial purposes. All illustrations and images included in CareNotes?? are the copyrighted property of [employer]. or [employer]. Rhinosinusitis WHAT YOU NEED TO KNOW: Rhinosinusitis (RS) is inflammation of your nose and sinuses. It commonly begins as a virus, often as a common cold. Viruses usually last 7 to 10 days and do not need treatment. When the virus does not get better on its own, you may have bacterial RS. This means that bacteria have begun to grow inside your sinuses. Acute RS lasts less than 4 weeks. Chronic RS lasts 12 weeks or more. Recurrent RS is when you have 4 or more episodes of RS in one year. DISCHARGE INSTRUCTIONS: Return to the emergency department if: ?? Your eye and eyelid are red, swollen, and painful. ?? You cannot open your eye. ?? You have double vision or you cannot see. ?? Your eyeball bulges out or you cannot move your eye. ?? You are more sleepy than normal or you notice changes in your ability to think, move, or talk. ?? You have a stiff neck, a fever, or a bad headache. ?? You have swelling of your forehead or scalp. Contact your healthcare provider if: ?? Your symptoms are worse or do not improve after 3 to 5 days of treatment. ?? You have questions or concerns about your condition or care. Medicines: You may need any of the following: ?? Acetaminophen decreases pain and fever. It is available without a doctor's order. Ask how much to take and how often to take it. Follow directions. Acetaminophen can cause liver damage if not taken correctly. ?? NSAIDs , such as ibuprofen, help decrease swelling, pain, and fever. This medicine is available with or without a doctor's order. NSAIDs can cause stomach bleeding or kidney problems in certain people. If you take blood thinner medicine, always ask your healthcare provider if NSAIDs are safe foryou. Always read the medicine label and follow directions. ?? Nasal steroid sprays decrease inflammation in your nose and sinuses. ?? Decongestants reduce swelling and drain mucus in the nose and sinuses. They may help you breatheeasier. ?? Antihistamines dry mucus in the nose and relieve sneezing. ?? Antibiotics treat a bacterial infection and may be needed if your symptoms do not improve or they get worse. ?? Take your medicine as directed. Contact your healthcare provider if you think your medicine is not helping or if you have side effects. Tell him or her if you are allergic to any medicine. Keep a list of the medicines, vitamins, and herbs you take. Include the amounts, and when and why you take them. Bring the list or the pill bottles to follow-up visits. Carry your medicine list with you in case of an emergency. Self-care: ?? Rinse your sinuses. Use a sinus rinse device to rinse your nasal passages with a saline (salt water) solution. This will help thin the mucus in your nose and rinse away pollen and dirt. It will also help reduce swelling so you can breathe normally. Ask your healthcare provider how often to do this. ?? Breathe in steam. Heat a bowl of water until you see steam. Lean over the bowl and make a tent over your head with a large towel. Breathe deeply for about 20 minutes. Be careful not to get too close to the steam or burn yourself. Do this 3 times a day. You can also breathe deeply when you take ahot shower. ?? Sleep with your head elevated. Place an extra pillow under your head before you go to sleep to help your sinuses drain. ?? Drink liquids as directed. Ask your healthcare provider how much liquid to drink each day and which liquids are best for you. Liquids will thin the mucus in your nose and help it drain. Avoid drinks that contain alcohol or caffeine. ?? Do not smoke, and avoid secondhand smoke. Nicotine and other chemicals in cigarettes and cigars can make your symptoms worse. Ask your healthcare provider for information if you currently smoke and need help to quit. E-cigarettes or smokeless tobacco still contain nicotine. Talk to your healthcare provider before you use these products. Follow up with your healthcare provider as directed: Follow up if your symptoms are worse or not better after 3 to 5 days of treatment. Write down your questions so you remember to ask them during your visits. ?? 2016 [employer]. Information is for End User's use only and may not be sold, redistributed or otherwise used for commercial purposes. All illustrations and images included in CareNotes?? are the copyrighted property of [employer]. or [employer]. The above information is an pre parole counseling aide only. It is not intended as medical advice for individual conditions or treatments. Talk to your doctor, nurse or pharmacist before following any medical regimen to see if it is safe and effective for you. documented in this encounter Progress Notes * Alma Rosa Mckay APRN-CNP - 01/23/2017 2:07 PM CDT [facility] Chief Complaint Patient presents with ??? Congestion SUBJECTIVE: General The history is provided by the patient. This is a new problem. The current episode started 2 days ago. The problem occurs constantly. The problem has been gradually worsening. The pain is at a severity of 8/10. The pain is moderate. Associated symptoms include headaches. The symptoms are relieved by NSAIDs and Tylenol. Treatments tried: cloves, took a left over hydrocodone. 51 y/o female presents with c/o yesterday had a toothache behind a crown then this am woke up with left side of face hurting. Denies any broken teeth. Concerned about a sinus infection. No past medical history on file. No current outpatient prescriptions on file prior to visit. No current facility-administered medications on file prior to visit. No past surgical history on file. Social History Social History ??? Marital status: Single Spouse name: N/A ??? Number of children: N/A ??? Years of education: N/A Occupational History ??? Not on file. Social History Main Topics ??? Smoking status: Not on file ??? Smokeless tobacco: Not on file ??? Alcohol use Not on file ??? Drug use: Not on file ??? Sexual activity: Not on file Other Topics Concern ??? Not on file Social History Narrative No family history on file. Current Outpatient Prescriptions Medication Sig Dispense Refill ??? fluticasone propionate (FLONASE) 50 MCG/ACT nasal spray [place] 2 Sprays into each nostril once daily 1 Bottle 0 ??? clindamycin (CLEOCIN) 300 MG capsule Take 1 Cap by mouth 3 times daily for 7 days 21 Cap 0 No current facility-administered medications for this visit. Allergies Allergen Reactions ??? Dilaudid [Hydromorphone] ??? Morphine ??? Sulfa Drugs REVIEW OF SYSTEMS: Review of Systems Constitutional: Positive for chills. Negative for fever. HENT: Positive for congestion and ear pain. Negative for ear discharge. Left ear, teeth sensitive Respiratory: Negative for cough. Gastrointestinal: Negative for diarrhea, nausea and vomiting. Neurological: Positive for headaches. Negative for dizziness. OBJECTIVE: General appearance: alert, well appearing, and in no distress. BP 128/72 (BP SITE: LEFT ARM, BP POSITION: SITTING, BP CUFF SIZE: Adult) Pulse 78 Temp 97.7 ??F (Oral) Ht 1.626 m (5' 4 ) Wt 75.8 kg (167 lb) SpO2 98% BMI 28.67 kg/m2 Physical Exam Constitutional: She is oriented to person, place, and time and well-developed, well-nourished, and in no distress. HENT: Head: Normocephalic and atraumatic. Mouth/Throat: Oropharynx is clear and moist. Bilateral TM's air fluid, left frontal and maxillary sinus pressure, mildly swollen upper gums Neck: Normal range of motion. Neck supple. Cardiovascular: Normal rate and regular rhythm. Pulmonary/Chest: Effort normal and breath sounds normal. Neurological: She is alert and oriented to person, place, and time. Vitals reviewed. ASSESSMENT: No results found for this visit on 01/23/17. Encounter Diagnoses Name Primary? ETD (eustachian tube dysfunction), bilateral Yes ??? Rhinosinusitis ??? Pulpitis PLAN: Use Flonase per package instructions, Saline nasal mist to prevent nasal drying For nasal congestion if needed may use Sudafed 4 hours per package instructions Tylenol or Motrin as needed Claritin or Zyrtec per package instructions Cool Mist humidifier as needed If no improvement in 48-72 hours follow up with PCP Dr Loza or return to clinic documented in this encounter Plan of Treatment Not on file documented as of this encounter Visit Diagnoses Diagnosis ETD (Eustachian tube dysfunction), bilateral- Primary Rhinosinusitis Unspecified sinusitis (chronic) Pulpitis documented in this encounter
--- OUTSIDE RECORDS SUMMARY | 2024-06-12 04:23 | XMS_ITS | Encounter Summary ---
Author Organization [facility] Address [address] [place] [address] Phone Care Team Providers Care Concrete Smoother Name Role Phone Vanessa Winter MD Primary Care Provider [phone] Reason for Visit * Auth/Cert Specialty Diagnoses / Procedures Referred By Jacey samuel Referred To Contact Diagnoses screening Procedures COLONOSCOPY Referral ID Status Reason Start Date Expiration Date Visits Re quested Visits Authorized [id number] 1 1 Encounter Details Date Type Department Care Team (Late st Contact Info) Description 07/30/2020 10:00 AM TRAILER MECHANIC - 07/30/2020 10:30 AM TRAILER MECHANIC Surgery [facility] Gi Lab Periop [address] [place] [address] Camron Betancourt, DO [address] [address] [place] [address] COLONOSCOPY TICS, ASCENDING COLON POLYPS X2, SIGMOID COLON POLYP (COLD SNARE), HEMORRHODIS Surgery Details Date/Time Status Location OR Service Patient Class Case Class Case Type Trauma Case? 07/30/2020 10:00 AM Posted [facility] GI 01 Gastroenterology [facility] Ambulatory Surgery Panel 1 Procedure LRB Anes Op Region Wound Class Comments COLONOSCOPY TICS, ASCENDING COLON POLYPS X2, SIGMOID COLON POLYP (COLD SNARE), HEMORRHODIS N/A Monitored Anesthesia Care Surgeon Surgeon Role Service Panel Camron Betancourt, Primary Gastroenterology 1 Special Needs 07/30 - screen documented in this encounter Social History Tobacco Use Types Packs/Day Years [...] COVID-19? No / Unsure 07/30/2020 8:47 AM TRAILER MECHANIC documented as of this encounter Last Filed Vital Signs Vital Sign Reading Time Taken Comments Blood Pressure 111/84 07/30/2020 8:57 AM TRAILER MECHANIC Pulse 71 07/30/2020 8:57 AM TRAILER MECHANIC Temperature 36 ??C (96.8 ??F) 07/30/2020 8:57 AM TRAILER MECHANIC Respiratory Rate 16 07/30/2020 8:57 AM TRAILER MECHANIC Oxygen Saturation 99% 07/30/2020 8:57 AM TRAILER MECHANIC Inhaled Oxygen Concentration - - Weight 77.1 kg (170 lb) 07/10/2020 1:00 PM TRAILER MECHANIC Height 160 cm (5' 3 ) 07/10/2020 1:00 PM TRAILER MECHANIC Body Mass Index 30.11 07/10/2020 1:00 PM TRAILER MECHANIC documented in this encounter Discharge Instructions * Discharge Instructions* Katiana Monterroso RN - 07/30/2020 12:05 PM TRAILER MECHANIC You had a colonoscopy today. Dr. Betancourt found: DIVERTICULOSIS POLYPS X3 BIOPSY/BIOPSIES TAKEN. CALL OFFICE FOR BIOPSY RESULTS IN 2 WEEKS AT [phone] HEMORRHOIDS Recommendations: ?? Fiber Recheck colonoscopy [address], WORK, OPERATE MACHINERY OR USE POWER TOOLS UNTIL DAY AFTER PROCEDURE. NO ALCOHOL BEVERAGES TODAY FOLLOWING DAY: RETURN TO FULL ACTIVITY, INCLUDING WORK, UNLESS INSTRUCTED OTHERWISE. Call doctor's office ([phone]) or go to Emergency room for: Difficulty Breathing, Headache Or Visual Disturbances Persistent Dizziness Or Light-Headedness Persistent Nausea and Vomiting Temperature greater then 100.0 Significant abdominal pain, chest pain, or bleeding. Here at [facility] we strive to provide excellent care to each of our patients, along with an easy transition between departments, starting with registration until discharge. Through our excellent care and services, we hope that you would recommend our services to your family and friends. You will receive a follow-up phone call in 24-48 hours after your procedure to see how you are doing. This gives our patients the opportunity to recognize any members from our team, from housekeepers, to nurses, to physicians, that you felt gave you excellent service as well as any suggestions for improvement. We hope you found our facility clean and our mission partners courteous. You may also receiving a survey in the mail. We would appreciate it if you could complete the form and return it. A self addressed pre-paid envelope is provided. Thank you for choosing [facility]. LER MECHANIC * Attachments The following attachments cannot be sent through Care Everywhere. * Colon and Rectal Polyps, Understanding (Faroese) * Diverticulosis (Faroese) * Hemorrhoids (Faroese) documented in this encounter Medications at Time of Discharge Ascorbic Acid (Vitamin C) 1000 MG Tablet Take 120 mg by mouth. Cholecalciferol (VITAMIN D3 PO) Take by mouth Every 3 months. documented as of this encounter H&P Notes * Camron Betancourt, - 07/30/2020 11:32 AM CST [facility] GASTROENTEROLOGY CONSULT/H&P NAME: Blank Cowan DATE 1965 DATE OF CONSULT: 07/30/2020 Very pleasant patient was seen at the request of primary and with the patient's permission. The patient was examined and the chart was reviewed. Reason for visit is colonoscopy. IMPRESSION: Screening. RECOMMENDATIONS: Colonoscopy. HISTORY: This very pleasant lady is here for screening colonoscopy. GI review systems negative. Voice recognition software was utilized in this dictation. Despite proof reading, typographical errors and/or content errors may have occurred. ALLERGIES: Allergies Allergen Reactions ??? Dilaudid [Hydromorphone] Hives ??? Shellfish Allergy Hives ??? Sulfa Antibiotics Hives MEDICATIONS Medications Prior to Admission Medication Sig Dispense Refill ??? Ascorbic Acid (Vitamin C) 1000 MG Tablet Take 120 mg by mouth. ??? Cholecalciferol (VITAMIN D3 PO) Take by mouth Every 3 months. MEDICAL HISTORY: History reviewed. No pertinent past medical history. SURGICAL HISTORY: Past Surgical History: Procedure Laterality Date ??? SECTION x3 ??? CHOLECYSTECTOMY ??? COLONOSCOPY ??? ECTOPIC SURGERY ??? LEG SURGERY Left Age 16 FAMILY HISTORY: Family History Problem Relation Age of Onset ??? No Known Problems Mother ??? Cancer Father Lung SOCIAL HISTORY: Social History Socioeconomic History ??? Marital status: Spouse name: Not on file ??? Number of children: Not on file ??? Years of education: Not on file ??? Highest education level: Not on file Occupational History ??? Not on file Tobacco Use ??? Smoking status: Former Smoker Packs/day: 1.00 Years: 10.00 Pack years: 10.00 Quit date: 07/31/1999 Years since quittin.0 ??? Smokeless tobacco: Never Used Substance and Sexual Activity ??? Alcohol use: Yes Comment: Rare ??? Drug use: Not Currently ??? Sexual activity: Not on file Other Topics Concern ??? Not on file Social History Narrative ??? Not on file Social Determinants of Health Social determinant risk not applicable to this patient. OBSTETRICS HISTORY: OB History No obstetric history on file. REVIEW OF SYSTEMS: A 14 point review of systems was performed and was negative other than what is mentioned under the HPI. EXAMINATION BP 111/84 Pulse 71 Temp 96.8 ??F (36 ??C) Resp 16 Ht 5' 3 (1.6 m) Wt 170 lb (77.1 kg) SpO2 99% BMI 30.11 kg/m?? General appearance: alert, no distress, cooperative, appears stated age. Head: Normocephalic, without obvious abnormality, atraumatic Eyes: no icterus. Throat: Lips, mucosa, and tongue normal. Teeth and gums normal. Moist mucous membranes. No oral lesions. Neck: supple, symmetrical, trachea midline, no adenopathy, thyroid: not enlarged, symmetric, no tenderness/mass/nodules, no carotid bruit and no Jugular Venous Distention. Heart: regular rate and rhythm, S1, S2 normal, no murmur, click, rub or gallop. Lungs: no acute distress, clear to auscultation bilaterally anterior and posterior, good effort. Abdomen: soft, non-tender. Bowel sounds normal. No masses, no organomegaly. Extremities: extremities normal, atraumatic, no cyanosis or edema, negative homans/evelia Pulses: pedal pulses intact. Skin: Skin color, texture, turgor normal. No rashes or lesions. Lymph nodes: Cervical nodes normal., Supraclavicular nodes normal. Neurologic: Alert and oriented X 3. CN 2-12 grossly intact. No focal deficits. ELENA: No significant joint tenderness and swelling. No muscle atrophy. Mental status exam was completely normal. Dress, hygeine, and appearance are appropriate. Overall affect is normal. Rectal exam: Deferred. Thank you for much for the opportunity to participate in the care of this patient. Please do not hesitate to contact us if we can be of any further assistance. Documentation for this visit on 07/30/2020 was completed using a template. I have seen and examinedthe patient. Everything documented was personally performed at this visit with the necessary additions, deletions and changes made as appropriate. LER MECHANIC documented in this encounter OR Notes * OR Surgeon - Camron Betancourt DO - 07/30/2020 12:02 PM CST COLONOSCOPY PROCEDURE NOTE Date of Procedure: 07/30/2020 History and Preoperative Diagnosis: Screening. Postoperative Diagnosis: Polyps x2 ascending colon. Diverticulosis coli. Polyp distal sigmoid colon. Internal hemorrhoidal tissue. Findings: Colonoscopy to cecum was completed. Two polyps in the ascending colon resected and recovered utilizing a Jumbo biopsy forceps. Polyp in the distal sigmoid colon was cold snared recovered. Left-sided diverticulosis coli was observed. Internal hemorrhoidal tissue was noted. Anesthesia: MAC Complications: No immediate. Procedure performed: Colonoscopy snare polypectomy and biopsy x2. Quality Indicators: Colonoscopy to cecum. Preparation excellent. Withdrawal time was 13 minutes. Recommendations: Fiber Recheck colonoscopy 5 years. Voice recognition software was utilized in this dictation. Despite proof reading, typographical errors and/or content errors may have occurred. Specimens: ID Type Source Tests Collected by Time A : ASCENDING COLON POLYPS X2 Tissue Colon PATHOLOGY SURGICAL Camron Betancourt DO 07/30/2020 1149 B : SIGMOID COLON POLYP Tissue Colon PATHOLOGY SURGICAL Camron Betancourt DO 07/30/2020 1153 EBL: less than 10ml Procedure Details: Pre-Procedure: After discussion of the risks, benefits, and alternatives to the procedure, informedconsent was obtained from patient/power of vp organizational development/caregiver. Risks discussed included, but were not limited to infection, perforation, hemorrhage, arrhythmia, hypersensitivity to sedatives, missed c ancer, surgery, blood transfusion and . Based on the pre-procedure assessment, including review of the patient's medical history, medications, allergies, and review of systems, he had been deemed to be an appropriate candidate for moderate sedation. The patient understood procedure and all ques tions were answered. A physician-directed time out was held to confirm patient and procedure. Patient was placed in the left lateral decubitus position. Sedated by the department of Anesthesiology. Digital rectal examination was performed and was unremarkable. Using the Olympus video colonoscope, it was inserted under direct visualization into the rectum and advanced to the cecum (or as otherwise specified). The cecum was identified by the appendiceal opening and ileocecal valve. Instrument used: Olympus video colonoscope Documentation for this visit on 07/30/2020 was completed using a template. I have seen and examinedthe patient. Everything documented was personally performed at this visit with the necessary additions, deletions and changes made as appropriate. REFERRING PHYSICIAN: No ref. provider found Surgeon: Surgeon(s) and Role: * Camron Betancourt DO - Primary Camron Betancourt DO, 07/30/2020, 12:02 PM TRAILER MECHANIC Attending Physician: Camron Betancourt DO Primary Care Physician: VANESSA WINTER MD LER MECHANIC documented in this encounter Miscellaneous Notes * Anesthesia Post-op Eval - Marcelo Uribe APN, .NET PROGRAMMER - 07/30/2020 12:03 PM CST [facility] Post Anesthesia Assessment: Date of Procedure: 07/30/2020 Surgeon: Camron Betancourt DO Surgical Procedure: Procedure(s): COLONOSCOPY TICS, ASCENDING COLON POLYPS X2, SIGMOID COLON POLYP (COLD SNARE), HEMORRHODIS BP 111/84 Pulse 71 Temp 96.8 ??F (36 ??C) Resp 16 Ht 5' 3 (1.6 m) Wt 170 lb (77.1 kg) SpO2 99% BMI 30.11 kg/m?? No results found for: GLUCOSEPOCT Patient is sufficiently recovered from the acute administration of the anesthesia so as to participate in the evaluation: yes Respiratory function stable: yes Cardiovascular function stable: yes Mental status: oriented Temperature in safe range: yes Pain control adequate: yes Nausea and vomiting controlled: yes Postoperative hydration status adequate: yes Anesthetic complications: no COMMENTS: Vital signs stable no apparent anesthesia complications at this time. Patent airway. Marcelo Uribe APN, CRNA 07/30/2020 12:03 PM TRAILER MECHANIC LER MECHANIC * Anesthesia Pre-op Linda Rudolph APN, CRNA - 07/30/2020 11:25 AM CST [facility] ANESTHESIA PREOPERATIVE NOTE Date of Procedure: 07/30/2020 Patient/Guardian (s) Interviewed: yes NPO Status Acceptable: yes Labs and Pretesting Reviewed in Epic: yes Positive Test: n/a History of Anesthesia complications: no No results found for: WBC, HEMOGLOBIN, HEMATOCRIT, MCV No results found for: SODIUM, POTASSIUM, CHLORIDE, CO2VEN, GLUCOSE, ANIONGAP, BUN, CREATININE, CALCIUM No results found for: INR, PTP, APTT No results found. No results found. Age:55 y.o. Wt Readings from Last 1 Encounters: 07/10/20 170 lb (77.1 kg) Body mass index is 30.11 kg/m??. Planned Procedure: Procedure(s): COLONOSCOPY Preoperative Diagnosis: screening Allergies Allergen Reactions ??? Dilaudid [Hydromorphone] Hives ??? Shellfish Allergy Hives ??? Sulfa Antibiotics Hives Prior to Admission medications Medication Sig Start Date End Date Taking? Authorizing Provider Ascorbic Acid (Vitamin C) 1000 MG Tablet Take 120 mg by mouth. Yes ProviderGaston MD Cholecalciferol (VITAMIN D3 PO) Take by mouth Every 3 months. Yes ProviderGaston MD Current Facility-Administered Medications Medication Dose Route Frequency Provider Last Rate Last Admin ??? lactated ringers infusion Intravenous Continuous Camron Betancourt DO 10 mL/hr at 07/30/20 0930 New Bag at 07/30/20 09 History reviewed. No pertinent past medical history. Past Surgical History: Procedure Laterality Date ??? SECTION x3 ??? CHOLECYSTECTOMY ??? ECTOPIC SURGERY ??? LEG SURGERY Left Age 16 Preanesthetic Exam: Mental Status:awake, alert and oriented Airway Assessment Mallampati Scale: 2 TM distance: >3fb Neck ROM: full Lungs: clear to auscultation bilaterally Heart: regular rate and rhythm, S1, S2 normal, no murmur, click, rub or gallop BP 111/84 Pulse 71 Temp 96.8 ??F (36 ??C) Resp 16 Ht 5' 3 (1.6 m) Wt 170 lb (77.1 kg) SpO2 99% BMI 30.11 kg/m?? ASA physical status: 1 Anesthetic plan: Monitored Anesthesia Care (MAC) Anesthesia plan was discussed with surgeon: yes Risk,benefits, and alternatives explained to patient/guardian:yes All questions answered:yes Linda Calixto APN, CRNA 07/30/2020, 11:26 AM TRAILER MECHANIC LER MECHANIC * Plan of Care - Edith Barrios RN - 07/30/2020 8:51 AM CST Problem: Adult Inpatient Plan of Care Goal: Plan of Care Review Outcome: Ongoing (see interventions/notes) Flowsheets (Taken 07/30/2020 0850) Progress: no change Plan of Care Reviewed With: patient Outcome Summary: patient ready for procedure Today's Goal: go home today Goal: Absence of Hospital-Acquired Illness or Injury Outcome: Ongoing (see interventions/notes) Goal: Optimal Comfort and Wellbeing Outcome: Ongoing (see interventions/notes) Goal: Readiness for Transition of Care Outcome: Ongoing (see interventions/notes) Goal: Rounds/Family Conference Outcome: Ongoing (see interventions/notes) Problem: Ongoing Anesthesia Effects (Surgery Nonspecified) Goal: Anesthesia/Sedation Recovery Outcome: Ongoing (see interventions/notes) LER MECHANIC * Interdisciplinary - Lnoi Kumar RN - 07/10/2020 1:31 PM CST [facility] GI TEACHING Patient Name: Blank Cowan : 1965 [facility]#: [id number] Person Educated Patient Ready to Learn Yes Teaching Method Phone Advised will be called with covid test time. Covid test will be 72 hours prior to procedure and to self quarantine after covid test until procedure. The Day of Procedure: Call your physician if your physical condition changes (cold, fever, flu). Do not come to the hospital without first calling your physician. Follow your surgeon's instructions regarding your diet, bowel prep, and medications if applicable. If your have any questions, please contact your surgeon's office. No alcohol and no smoking for 24 hrs prior to procedure if applicable. Wear comfortable, loose fitting clothing. Instruction to leave all jewelry at home including wedding/engagement rings or any body piercing jewelry. Leave all valuables at home. Children ages under 16 must be accompanied by a parent or legal guardian in the hospital at all times. Detailed instructions given for arrival location and parking. Arrive for your procedure as instructed by the [facility] GI Lab. Go to Registration the morning of the procedure to check in. Arrange for a responsible person to accompany you and drive you home following your procedure. Follow directions regarding which medications to take or hold. It is very important to follow directions on diabetic medication or blood thinners from your surgeon's office. When you come to the hospital only 1 adult over the age of 16 will be allowed to accompany you to the [facility]. No children under the age of 16 will be allowed in the [facility] unless they are the patient. If the patient chooses to bring their children under the age of 16, an adult must accompany those children in the surgery waiting room and cannot leave them unattended. During the flu season: refer to the visitation restriction guidelines implemented during that season if applicable. Fall Prevention Teaching The Day of Surgery: ?? Your safety while you are in the hospital is very important to us. Following surgery, you might be at increased risk for falling for several reasons: ??? -The hospital environment is unfamiliar. It???s not the same as being at home ??? -You may be weaker than you realize. ??? -You may be connected to lines or equipment that can cause you to trip. ??? -You may be on medications that make you drowsy or dizzy. We know this can happen especially with pain medication and anesthesia. ??? We want to partner with you in the hospital to make sure you are safe ??? -Please do not feel hesitant to ask for help while in the hospital. You will -need extra help until you get stronger especially with walking and using the bathroom. ??? -Pay close attention to what the doctors and nurses tell you about your risk of falling. ??? -A fall can mean a longer hospital stay. Also, injuries from a fall can affect your health for the rest of your life. ??? Some things the nurses may do to keep you safe are: ??? -Have you use the call light for help whenever you get out of bed. ??? -Wear non-skid slippers to keep you from slipping on the floors ??? -Use a special belt that wraps around your waist so we can help steady you when you walk ??? -Activate an alarm on your bed so we know if you are getting up in case you forget to use your call light ??? -Stay in the bathroom with you in case you become dizzy or light headed Response to Teaching: Verbalizes Understanding Patient assessed for director speech language during the preop interview and appropriate interventions taken if applicable. LER MECHANIC documented in this encounter Plan of Treatment Not on file documented as of this encounter Procedures Procedure Name Priority Date/Time Associated Diagnosis Comments PATHOLOGY SURGICAL Routine 07/30/2020 11 :49 AM TRAILER MECHANIC COLONOSCOPY 07/30/2020 11:29 AM TRAILER MECHANIC TICS, ASCENDING COLON POLYPS X2, SIGMOID COLON POLYP (COLD SNARE), HEMORRHODIS Special Needs 3/3 - screen documented in this encounter Results * Pathology Surgical (07/30/2020 11:49 AM TRAILER MECHANIC) Case Report Surgical Pathology Report ? Case: [id number] ? Authorizing Provider: ??Raoa, Camron T, DO ? Collected: ? 07/30/2020 11:49 AM ? Ordering Location: ? [facility] ? Received: ?07/30/2020 12:58 PM ? [facility] Gi ? Lab Main ? Pathologist: ? Terrell, Chyna Augustin, ? MD ? Specimens: ?? A) - Large Bowel, ASCENDING COLON POLYPS X2 ? B) - Large Bowel, SIGMOID COLON POLYP ? 08/01/2020 4:31 PM TRAILER MECHANIC [facility] FINAL DIAGNOSIS A. Colon, Ascending, Polyps, Polypectomy: - Tubular adenoma, multiple fragments. B. Colon, Sigmoid, Polyp, Polypectomy: - Tubular adenoma. 08/01/2020 4:31 PM [facility] Pre-Operative Diagnosis No Dx found. 08/01/2020 4:31 PM [facility] Gross Description A. ASCENDING COLON POLYPS X2 The specimen presents in two formalin containers for gross and microscopic examination labeled with the patient's name, Blank Cowan. The specimen is designated as ascending colon polyps. The specimen consists of five pieces of light stacy tissue measuring 0.1 to 0.3 cm in greatest dimension. All submitted cassette A1. B. SIGMOID COLON POLYP The specimen is designated sigmoid colon polyp. The specimen consists of a single light stacy tissue measuring 0.4 cm in greatest dimension. All submitted cassette B1. KS/sb 08/01/2020 4:31 PM TRAILER MECHANIC [facility] Microscopic Description 6 H&E. Microscopic examination supports the diagnoses. No high-grade dysplasia is apparent. SES/sb 08/01/2020 4:31 PM TRAILER MECHANIC [facility] Tissue TISSUE SPECIMEN FROM LARGE INTESTINE / Unknown 07/30/2020 11:49 AM TRAILER MECHANIC 07/30/2020 12:58 PM TRAILER MECHANIC Tissue specimen (specimen) TISSUE SPECIMEN FROM LARGE INTESTINE / Unknown 07/30/2020 11:53 AM TRAILER MECHANIC 07/30/2020 12:58 PM TRAILER MECHANIC us Camron Daniel Asia DO PATHOLOGY/CYTOLOGY ORDERABLES F inal Result [facility] [place] [address] documented in this encounter Visit Diagnoses Not on filedocumented in this encounter Administered Medications Inactive Administered Medications - up to 3 most recent administrations Medication Order MAR Action Action Date Dose Rate Site lactated ringers infusion at 10 mL/hr, Intravenous, CONTINUOUS, Starting on Tue07/30/20 at 0930, Until Tue07/30/20 at 1449 New Bag 07/30/2020 9:30 AM TRAILER MECHANIC 10 mL/hr documented in this encounter Active and Recently Administered Medications Times are shown in TRAILER MECHANIC. Continuous Medication Order 07/28/2020 07/29/2020 07/30/2020 lactated ringers infusion at 10 mL/hr, Intravenous, CONTINUOUS, Starting on Tue07/30/20 at 0930, Until Tue07/30/20 at 1449 0930 (New Bag - Prov ider: Edith Barrios RN)[id number] (Stopped - Provider: Katiana Monterroso RN) documented in this encounter Care Teams Concrete Smoother Relationship Specialty Start Date End Date Vanessa Winter MD PCP - General Internal Medicine 06/04/20 10/19/22 documented as of this encounter
--- OUTSIDE RECORDS SUMMARY | 2024-06-12 04:23 | XMS_ITS | Patient Health Summary ---
Author Organization [facility] Address [address] [place] [address] Care Team Providers Care Cheesemaking Laborer Name Role Phone Unavailable Primary Care Provider Unavailabl e Note from [facility],non-owned Affiliates and Associated Physician Practices is amultiple site organization consisting of ambulatory clinics and hospital sitesin [place], [place], [place] and [place]. This disclosure is being madepursuant to the Care Everywhere program and may not contain all information available regarding this patient. Last updated 18.[facility] [employer] Allergies * Hydromorphone * Morphine * Sulfa Drugs Medications * Be aware that medications may not be up to date on this document. Alwaysverify current medications with the patient. * fluticasone propionate (FLONASE) 50 MCG/ACT nasal spray(Started 01/23/2017) [place] 2 Sprays into each nostril once daily Social History Tobacco Use Types Packs/Day Years [...] Mass Index 28.67 01/23/2017 2:13 PM CDT Procedures * DERMATOPATHOLOGY(Performed 10/21/2017) * SKIN TEST PPD - POINT OF CARE(Performed 2016) Performed for Screening-pulmonary TB * CYTOLOGY SMEAR PAP THIN PREP(Performed 04/08/1998) Results * DERMATOPATHOLOGY (10/21/2017 12:00 AM CDT) Case Report Dermatopathology Report ? Case: [id number] ? Authorizing Provider: ??Joshua Holt MD ?Collected: ? 10/21/2017 12:00 AM ? Pathologist: ? Nohelia Ried MD ?Received: ?10/25/2017 11:35 AM ? Specimens: ?? A) - Skin, right sup medial breast ? B) - Skin, right distal ant thigh ? 8 1:04 PM CDT DERMATOPATHOLOGY LABORATORY Final Diagnosis Specimen A. SKIN, right sup medial breast: PIGMENTED SEBORRHEIC KERATOSIS (L82.1) NOT PRESENT AT SAMPLED MARGIN Specimen B. SKIN, right distal ant thigh: SEBORRHEIC KERATOSIS, MACULAR (L82.1) PRESENT AT MARGIN 8 1:04 PM CDT DERMATOPATHOLOGY LABORATORY Clinical History A-B: R/O SK, ISK, dys nevus. Check margins. 1:04 PM CDT DERMATOPATHOLOGY LABORATORY Gross Description Specimen A: Received is one formalin filled container labeled with the patient's name and designated right sup medial breast. The specimen consists of a shave biopsy measuring [id number]. The margin is inked green. Jar 0. Specimen B: Received is one formalin filled container labeled with the patient's name and designated right distal ant thigh. The specimen consists of a shave biopsy measuring [id number]. The margin is inked green. Jar 0. 1:04 PM T DERMATOPATHOLOGY LABORATORY Microscopic Description Specimen A. SKIN, [...] present at the margin of the specimen. 1:04 PM CDT DERMATOPATHOLOGY LABORATORY Disclaimer An external and internal positive and negative controls are appropriate for the histochemical, immunohistochemical and immunofluorescence stain(s) in this case (if any), except where stated explicitly. The performance characteristics of the stain(s) cited in this report were developed and its performance characteristic determined by the Dermatopathology Laboratory at [facility]. These tests need not be, and therefore are not, approved by the [place] Food and Drug Administration. The tests are used for clinical purposes. Billing Codes Specimen Charges Stain Charges 59038 36053 1 1 8 1:04 PM CDT DERMATOPATHOLOGY LABORATORY Embedded Images 1:04 PM CDT DERMATOPATHOLOGY LABORATORY Pathology/Cytology TISSUE SPECIMEN FROM SKIN / Unknown 10/21/2017 10/25/2017 11:35 AM CDT Miscellaneous samples (specimen) TISSUE SPECIMEN FROM SKIN / Unknown 10/21/2017 10/25/2017 11:35 AM CDT Joshua Holt MD LAB - PATHOLOGY/CYTO LOGY ORDERABLES DERMATOPATHOLOGY LABORATORY [facility] - Department of Dermatology [address] [place] [address], [facility] [phone] * SKIN TEST PPD - POINT OF CARE (2016) PPD neg MISCELLANEOUS SAMPLE S / Unknown 2016 Dawn Chong APRN-CLAIMS COORDINATOR LAB - POINT OF CARE ORDERABLES * CYTOLOGY SMEAR PAP THIN PREP (04/08/1998 1:49 PM SHIPPING POINT INSPECTOR) Result CASE NUMBER [id number] Comment: ORDERING PHYSICIAN ??MATHIEU JOHNS SPECIMEN TYPE ?PAP Smear Date ? 04/08/1998 Procedure ?Cervical/Endocervical, 1 Vial for Thin Prep Received Specimen Adequacy ?Satisfactory for Evaluation Categorization ? Within Normal Limits Snomed. ?04/21/1998 1142 <1> Front Office Specialist ? Chantale Villa(ASCP) PAP Footnote ? The PAP smear is only a screening procedure to aid in the detection of cervical cancer and its precursors. ??It is not a diagnostic procedure and should not be used as the sole means to detect cervical cancer. ??Both false negative and false positive results have been experienced. MISCELLANEOUS SAMPLES / Unknown 04/08/1998 1:49 PM SHIPPING POINT INSPECTOR 04/18/1998 1:49 PM SHIPPING POINT INSPECTOR Historical Provider LAB - PATHOLOGY/C YTOLOGY ORDERABLES
--- OUTSIDE RECORDS SUMMARY | 2024-06-12 04:23 | XMS_ITS | Encounter Summary ---
Author Organization [employer] Care Team Providers Care Chip Person Name Role Phone Kaveh Loza MD Primary Care Provider [phone] Encounter Details Date Type Department Care Team (Latest Contact Info) Description 07/30/2020 Travel Social History Tobacco Use Types Packs/Day [...] COVID-19? No / Unsure 07/30/2020 8:47 AM TORQUE TESTER documented as of this encounter Plan of Treatment Not on file documented as of this encounter Visit Diagnoses Not on filedocumented in this encounter Care Teams Chip Person Relationship Specialty Start Date End Date Kaveh Loza MD PCP - General Internal Medicine 06/04/20 10/19/22 documented as of this encounter
--- OUTSIDE RECORDS SUMMARY | 2024-06-12 04:23 | XMS_ITS | Encounter Summary ---
Author Organization [facility] Address [address] [place] [address] Phone Care Team Providers Care [employer] Executive Director Name Role Phone Kaveh Loza MD Primary Care Provider [phone] Encounter Details Date Type Department Care Team (Latest Contact Info) Description 12/08/2020 [facility] [address] [place] [address] Marcin Sharp, DPDee [address] [place] [id number] Left ankle pain, unspecified chronicity (Primary Dx) Social History Tobacco Use Types [...] as of this encounter Visit Diagnoses Diagnosis Left ankle pain, unspecified chronicity- Primary documented in this encounter Care Teams [employer] Executive Director Relationship Specialty Start Date End Date Kaveh Loza MD PCP - General Internal Medicine 06/04/20 10/19/22 documented as of this encounter
--- OUTSIDE RECORDS SUMMARY | 2024-06-12 04:23 | XMS_ITS | Clinical Summary ---
Author Organization [facility] [employer] Address [address] [place] [address] Care Team Providers Care Investor Name Role Phone Unavailable Primary Care Provider Unavailabl e Source Comments [facility],non-owned Affiliates and Associated Physician Practices is amultiple site organization consisting of ambulatory clinics and hospital sitesin [place], [place], [place] and [place]. This disclosure is being madepursuant to the Care Everywhere program and may not contain all information available regarding this patient. Last updated 18.[facility] [employer] Allergies Active Allergy Reactions Criticality Noted Date Comments Hydromorphone 01/23/2017 Morphine 01/23/2017 Sulfa Drugs 01/23/2017 Medications * Be aware that medications may not be up to date on this document. Alwaysverify current medications with the patient. Medication Sig Dispensed Refills Start Date End Date Status fluticasone propionate (FLONASE) 50 MCG/ACT nasal sprayIndications:ETD (Eustachian tube dysfunction), bilateral,Rhinosinusi tis [place] 2 Sprays into each nostril once daily [...] 01/23/2017 2:13 PM CDT Plan of Treatment Health Maintenance Due Date Last Done Comments COLOGUARD (AGES 45-75) - COL ON CA SCREENING 1965 COLON MONITORING 1965 COLONOSCOPY - COLON CA SCREENING 1965 CT COLONOGRAPHY - COLON CA SCREENING 1965 Colorectal Cancer Screening 1965 FIT - COLON CA SCREENING 1965 FLEX SIG - COLON CA SCREENING 1965 LIPID TESTING 1965 MAMMOGRAM 1965 HIV SCREENING 1978 HEPATITIS C SCREENING 02/19/1981 DTAP/TDAP/TD VACCINES (1 - Tdap) 1982 PAP SMEAR 04/08/2001 04/08/1998 PNEUMOCOCCAL VACCINE 50+ (1 of 1 - PCV) 2013 ZOSTER VACCINE (1 of 2) 2013 SCREENING FOR DIABETES 01/23/2017 COVID-19 VACCINE ( - 2023-2 5 season) 2024 INFLUENZA VACCINE (#1) 2024 DEPRESSION SCREENING 05/30/2024 Respiratory Syncytial Virus (RSV) Vaccine Pt: or over 60 yrs (1 - 1-dose 75+ series) 2038 HEPATITIS B VACCINE Aged Out No longe r eligible based on patient's age to complete this topic HIB VACCINE Aged Out No longer eligi ble based on patient's age to complete this topic HPV VACCINE Aged Out No longer eligi ble based on patient's age to complete this topic MENINGOCOCCAL (Group B) VACCINE Aged Out No longer eligible based on patient's age to complete this topic MENINGOCOCCAL VACCINE Aged Out No raven rboerta eligible based on patient's age to complete this topic PNEUMOCOCCAL VACCINE Aged Out No long er eligible based on patient's age to complete this topic Procedures Procedure Name Priority Date/Time Associated Diagnosis Comments CYTOLOGY SMEAR PAP THIN PREP [place]UR[place] 04/08/1998 1:49 PM CONDUCTOR SYMPHONIC ORCHESTRA from Last 3 Months or Most Recently Relevant to Health Maintenance Results * CYTOLOGY SMEAR PAP THIN PREP (04/08/1998 1:49 PM CONDUCTOR SYMPHONIC ORCHESTRA) Result CASE NUMBER [id number] Comment: ORDERING PHYSICIAN ??MATHIEU JOHNS SPECIMEN TYPE ?PAP Smear Date ? 04/08/1998 Procedure ?Cervical/Endocervical, 1 Vial for Thin Prep Received Specimen Adequacy ?Satisfactory for Evaluation Categorization ? Within Normal Limits Sn[place]. ?04/21/1998 1142 <1> Piece Goods Clerk ? Chantale Villa(ASCP) PAP Footnote ? The PAP smear is only a screening procedure to aid in the detection of cervical cancer and its precursors. ??It is not a diagnostic procedure and should not be used as the sole means to detect cervical cancer. ??Both false negative and false positive results have been experienced. MISCELLANEOUS SAMPLES / Unknown 04/08/1998 1:49 PM CONDUCTOR SYMPHONIC ORCHESTRA 04/18/1998 1:49 PM CONDUCTOR SYMPHONIC ORCHESTRA Historical Provider LAB - PATHOLOGY/C YTOLOGY ORDERABLES from Last 3 Months or Most Recently Relevant to Health Maintenance
--- OUTSIDE RECORDS SUMMARY | 2024-06-12 04:23 | XMS_ITS | Encounter Summary ---
Author Organization [facility] Address [address] [place] [address] Care Team Providers Care Press And Blow Machine Tender Name Role Phone Unavailable Primary Care Provider Unavailabl e Reason for Visit * Reason Onset Date Comments Follow-up 01/25/2017 Encounter Details Date Type Department Care Team (Late Contact Info) Description 01/25/2017 Telephone [facility] AT [address] [address] [facility] Carmen Follow-up Social History Tobacco Use Types Packs/Day Years [...]
--- OUTSIDE RECORDS SUMMARY | 2024-06-12 04:23 | XMS_ITS | Encounter Summary ---
Author Organization [facility] Address [address] [place] [address] [place] [address] Phone Care Team Providers Care Presidential Helicopter Crew Chief Name Role Phone Vanessa Winter MD Primary Care Provider [phone] Reason for Visit * Auth/Cert Specialty Diagnoses / Procedures Referred By Jacey samuel Referred To Contact Diagnoses screening Procedures COLONOSCOPY Referral ID Status Reason Start Date Expiration Date Visits Re quested Visits Authorized [id number] 1 1 Encounter Details Date Type Department Care Team (Late st Contact Info) Description 07/30/2020 8:47 AM ELECTRICAL TEST ENGINEER - 07/30/2020 12:49 PM ELECTRICAL TEST ENGINEER Hospital Encounter [facility] GI Lab Preop/Pacu II 1 [place] [address] Camron Betancourt, DO [address] [address] Discharge Disposition: Discharged to home or Selfcare [...] COVID-19? No / Unsure 07/30/2020 8:47 AM ELECTRICAL TEST ENGINEER documented as of this encounter Last Filed Vital Signs Vital Sign Reading Time Taken Comments Blood Pressure 90/63 07/30/2020 12:30 PM ELECTRICAL TEST ENGINEER Pulse 63 07/30/2020 12:30 PM ELECTRICAL TEST ENGINEER Temperature 36 ??C (96.8 ??F) 07/30/2020 12:30 PM ELECTRICAL TEST ENGINEER Respiratory Rate 19 07/30/2020 12:30 PM ELECTRICAL TEST ENGINEER Oxygen Saturation 100% 07/30/2020 12:30 PM ELECTRICAL TEST ENGINEER Inhaled Oxygen Concentration - - Weight 77.1 kg (170 lb) 07/10/2020 1:00 PM ELECTRICAL TEST ENGINEER Height 160 cm (5' 3 ) 07/10/2020 1:00 PM ELECTRICAL TEST ENGINEER Body Mass Index 30.11 07/10/2020 1:00 PM ELECTRICAL TEST ENGINEER documented in this encounter Discharge Instructions * Discharge Instructions* Katiana Monterroso RN - 07/30/2020 12:05 PM ELECTRICAL TEST ENGINEER You had a colonoscopy today. Dr. Betancourt found: DIVERTICULOSIS POLYPS X3 BIOPSY/BIOPSIES TAKEN. CALL OFFICE FOR BIOPSY RESULTS IN 2 WEEKS AT [phone] HEMORRHOIDS Recommendations: ?? Fiber Recheck colonoscopy [address], WORK, OPERATE MACHINERY OR USE POWER TOOLS UNTIL DAY AFTER PROCEDURE. NO ALCOHOL BEVERAGES TODAY FOLLOWING DAY: RETURN TO FULL ACTIVITY, INCLUDING WORK, UNLESS INSTRUCTED OTHERWISE. Call doctor's office ([phone]) or go to Emergency room for: Difficulty Breathing, Headache Or Visual Disturbances Persistent Dizziness Or Light-Headedness Persistent Nausea and Vomiting Temperature greater then 100.0 Significant abdominal pain, chest pain, or bleeding. Here at [facility] we strive to provide excellent care [...] envelope is provided. Thank you for choosing [facility]. TRICAL TEST ENGINEER * Attachments The following attachments cannot be sent through Care Everywhere. * Colon and Rectal Polyps, Understanding (Panamanian) * Diverticulosis (Panamanian) * Hemorrhoids (Panamanian) documented in this encounter Medications at Time of Discharge Ascorbic Acid (Vitamin C) 1000 MG Tablet Take 120 mg by mouth. Cholecalciferol (VITAMIN D3 PO) Take by mouth Every 3 months. documented as of this encounter H&P Notes * Camron Betancourt, - 07/30/2020 11:32 AM CST [facility] GASTROENTEROLOGY CONSULT/H&P NAME: Blank Cowan [...] additions, deletions and changes made as appropriate. TRICAL TEST ENGINEER documented in this encounter OR Notes * OR Surgeon - Camron Betancoutr DO - 07/30/2020 12:02 PM CST COLONOSCOPY [...] procedure, informedconsent was obtained from patient/power of attorney general/caregiver. Risks discussed included, but were not limited [...] Primary Camron Betancourt DO, 07/30/2020, 12:02 PM ELECTRICAL TEST ENGINEER Attending Physician: Camron Betancourt DO Primary Care Physician: VANESSA WINTER MD TRICAL TEST ENGINEER documented in this encounter Miscellaneous Notes * Anesthesia Post-op Eval - Marcelo Uribe APN, STORE HAND - 07/30/2020 12:03 PM CST [facility] Post Anesthesia Assessment: Date of Procedure: 07/30/2020 [...] Marcelo Uribe APN, CRNA 07/30/2020 12:03 PM ELECTRICAL TEST ENGINEER TRICAL TEST ENGINEER * Anesthesia Pre-op Linda Rudolph APN, CRNA - 07/30/2020 11:25 AM CST [facility] ANESTHESIA PREOPERATIVE NOTE Date of Procedure: 07/30/2020 [...] Tablet Take 120 mg by mouth. Yes Gaston Ma MD Cholecalciferol (VITAMIN D3 PO) Take by mouth Every 3 months. Yes Gaston Ma MD Current Facility-Administered Medications Medication Dose Route Frequency Provider Last Rate Last Admin ??? lactated ringers infusion Intravenous Continuous Camron Betancourt DO 10 mL/hr at 07/30/20 0930 New Bag at 07/30/20 0930 History reviewed. No pertinent past medical history. [...] Linda Calixto APN, CRNA 07/30/2020, 11:26 AM ELECTRICAL TEST ENGINEER TRICAL TEST ENGINEER * Plan of Care - Edith Barrios [...] Goal: Anesthesia/Sedation Recovery Outcome: Ongoing (see interventions/notes) TRICAL TEST ENGINEER * Interdisciplinary - Loni Kumar RN - 07/10/2020 1:31 PM CST [facility] GI TEACHING Patient Name: Blank Cowan : 1965 CSN#: [id number] Person Educated Patient Ready to Learn Yes [...] for your procedure as instructed by the [facility]. Go to Registration the morning [...] be allowed to accompany you to the [facility]. No children under the age of 16 will be allowed in the [facility] unless they are the patient. [...] to Teaching: Verbalizes Understanding Patient assessed for educational sign language interpreter during the preop interview and appropriate interventions taken if applicable. TRICAL TEST ENGINEER documented in this encounter Plan of Treatment Not on file documented as of this encounter Procedures Procedure Name Priority Date/Time Associated Diagnosis Comments PATHOLOGY SURGICAL Routine 07/30/2020 11 :49 AM ELECTRICAL TEST ENGINEER COLONOSCOPY 07/30/2020 11:29 AM ELECTRICAL TEST ENGINEER TICS, ASCENDING COLON POLYPS X2, SIGMOID COLON POLYP (COLD SNARE), HEMORRHODIS Special Needs 3/3 - screen documented in this encounter Results * Pathology Surgical (07/30/2020 11:49 AM ELECTRICAL TEST ENGINEER) Case Report Surgical Pathology Report ? Case: [id number] ? Authorizing Provider: ??Camron Betancourt, DO ? Collected: ? 07/30/2020 11:49 AM ? Ordering Location: ? [facility] ? Received: ?07/30/2020 12:58 PM ? [facility] ? Lab Main ? Pathologist: ? Terrell, Chyna Augustin, ? MD ? Specimens: ?? A) - Large Bowel, ASCENDING COLON POLYPS X2 ? B) - Large Bowel, SIGMOID COLON POLYP ? 08/01/2020 4:31 PM ELECTRICAL TEST ENGINEER [facility] FINAL DIAGNOSIS A. Colon, Ascending, Polyps, Polypectomy: - Tubular adenoma, multiple fragments. B. Colon, Sigmoid, Polyp, Polypectomy: - Tubular adenoma. 08/01/2020 4:31 PM [facility] Pre-Operative Diagnosis No Dx found. 08/01/2020 4:31 PM ELECTRICAL TEST ENGINEER [facility] Gross Description A. ASCENDING COLON POLYPS [...] submitted cassette B1. KS/sb 08/01/2020 4:31 PM ELECTRICAL TEST ENGINEER [facility] Microscopic Description 6 H&E. Microscopic examination supports the diagnoses. No high-grade dysplasia is apparent. SES/sb 08/01/2020 4:31 PM ELECTRICAL TEST ENGINEER [facility] Tissue TISSUE SPECIMEN FROM LARGE INTESTINE / Unknown 07/30/2020 11:49 AM ELECTRICAL TEST ENGINEER 07/30/2020 12:58 PM ELECTRICAL TEST ENGINEER Tissue specimen (specimen) TISSUE SPECIMEN FROM LARGE INTESTINE / Unknown 07/30/2020 11:53 AM ELECTRICAL TEST ENGINEER 07/30/2020 12:58 PM ELECTRICAL TEST ENGINEER us Camron Betancourt DO PATHOLOGY/CYTOLOGY ORDERABLES F inal Result [facility] [facility] [place] [address] documented in this encounter Visit Diagnoses Not on filedocumented in this encounter Administered Medications Inactive Administered Medications - up to 3 most recent administrations Medication Order MAR Action Action Date Dose Rate Site lactated ringers infusion at 10 mL/hr, Intravenous, CONTINUOUS, Starting on Tue07/30/20 at 0930, Until Tue07/30/20 at 1449 New Bag 07/30/2020 9:30 AM ELECTRICAL TEST ENGINEER 10 mL/hr documented in this encounter Active and Recently Administered Medications Times are shown in ELECTRICAL TEST ENGINEER. Continuous Medication Order 07/28/2020 07/29/2020 07/30/2020 lactated ringers infusion at 10 mL/hr, Intravenous, CONTINUOUS, Starting on Tue07/30/20 at 0930, Until Tue07/30/20 at 1449 0930 (New Bag - Prov ider: Edith Barrios RN)[id number] (Stopped - Provider: Katiana Monterroso RN) documented in this encounter Care Teams Presidential Helicopter Crew Chief Relationship Specialty Start Date End Date Vanessa Winter MD PCP - General Internal Medicine 06/04/20 10/19/22 documented as of this encounter
--- OUTSIDE RECORDS SUMMARY | 2024-06-12 04:24 | XMS_ITS | Encounter Summary ---
Author Organization [facility] Address [address] [place] [address] Care Team Providers Care Parts Sales Advisor Name Role Phone Kaveh Loza MD Primary Care Provider [phone] Encounter Details Date Type Department Care Team (Latest Contact Info) Description 09/15/2017 9:14 PM CDT - 09/15/2017 9:53 PM CDT Hospital Encounter [facility] [address] [place] [address] Rae Lea MD [address] [place] [place] [id number] Discharge Disposition: Discharge to home or self care Social History Tobacco Use Types Packs/Day Years Used Date Smoking Tobacco: Never Assessed Alcohol Use Standard Drinks/Week Comments No 0 (1 standard drink = 0.6 oz pur e alcohol) Comments No Sex and Gender Information Value Date Recorded Sex Assigned at Not on file Legal Sex Female 1:51 AM EQUIPMENT SERVICE ASSOCIATE Gender Identity Not on file Sexual Orientation Not on file documented as of this encounter Medications at Time of Discharge albuterol HFA (PROVENTIL HFA,VENTOLIN HFA) 90 mcg/actuation inhaler Inhale 2 puffs every 4 (four) hours as needed for wheezing or shortness of breath. 1 Inhaler 09/16/2017 azithromycin (ZITHROMAX) 500 mg tabletIndications :CAP Take 1 tablet (500 mg total) by mouth daily for 10 days. 10 tablet 09/17/2017 8 cefdinir (OMNICEF) 300 mg capsuleIndication s:CAP Take 1 capsule (300 mg total) by mouth 2 (two) times a day for 10 days. 20 capsule 09/17/2017 8 guaiFENesin-dextr omethorphan ER (MUCINEX DM) 600-30 mg tablet extended release 12 hrIndications:Cou gh Take 1 tablet by mouth 2 (two) times a day for 10 days. 20 tablet 09/17/2017 8 Lactobacillus acidophilus capsule Take 1 capsule by mouth 2 (two) times a day for 10 days. 20 each 09/17/2017 8 azithromycin (ZITHROMAX) 250 mg tabletIndications :Upper Respiratory/HEENT Infection Take 2 tablets the first day, then 1 tablet daily for 4 days 6 tablet 09/16/2017 8 documented as of this encounter Discharge Disposition Disposition Code Departure Means Destination Discharge to home or self care documented in this encounter Plan of Treatment Not on file documented as of this encounter Procedures Procedure Name Priority Date/Time Associated Diagnosis Comments XR CHEST PA LATERAL 2 VIEWS ED 09/15/2017 9:29 PM CDT documented in this encounter Results * XR Chest Pa Lateral 2 Vw (09/15/2017 9:29 PM CDT) Anatomical Region Laterality Modality Body, Chest N/A Computed Radiogr aphy Impressions 09/15/2017 9:31 PM CDT LEFT LOWER LOBE PNEUMONIA. Electronically signed by: Fredrick Galvez M.D. Narrative 09/15/2017 9:31 PM CDT XR CHEST PA LATERAL 2 VIEWS HISTORY: Shortness of breath. ??Cough and fever. COMPARISON: 09/04/2015 FINDINGS: PA frontal and lateral projections are obtained. ??Patchy infiltrate is present in the left lower lobe. ??The right lung is clear. The heart size and pulmonary vascularity are normal. Procedure Note Fredrick Galvez MD - 09/15/2017 XR CHEST PA LATERAL 2 VIEWS HISTORY: Shortness of breath. Cough and fever. COMPARISON: 09/04/2015 FINDINGS: PA frontal and lateral projections are obtained. Patchy infiltrate is present in the left lower lobe. The right lung is clear. The heart size and pulmonary vascularity are normal. IMPRESSION: LEFT LOWER LOBE PNEUMONIA. Electronically signed by: Fredrick Galvez M.D. us Mary Mai MD IMG XR PROCEDURES Final R esult documented in this encounter Visit Diagnoses Not on filedocumented in this encounter Care Teams Parts Sales Advisor Relationship Specialty Start Date End Date Kaveh Loza MD PCP - General Internal Medicine 09/15/17 documented as of this encounter
--- OUTSIDE RECORDS SUMMARY | 2024-06-12 04:24 | XMS_ITS | Encounter Summary ---
Author Organization [facility] Healthcare Address [address] [place] [address] Care Team Providers Care Hazardous Material Specialist Name Role Phone Nadir Greene MD Primary Care Provider + Encounter Details Date Type Department Care Team (Late st Contact Info) Description 09/04/2015 7:06 PM CDT - 09/04/2015 8:20 PM CDT Hospital Encounter [facility] [address] [place] [address] Asthma with acute exacerbation; Acute bronchitis due to other specified organisms; Other viral agents as the cause of diseases classified elsewhere; Allergy status to sulfonamides Social History Tobacco Use Types Packs/Day Years Used Date Smoking Tobacco: Never Assessed Alcohol Use Standard Drinks/Week Comments No 0 (1 standard drink = 0.6 oz pur e alcohol) Comments Unknown Sex and Gender Information Value Date Recorded Sex Assigned at Not on file Legal Sex Female 1:51 AM BIG DATA ADMIN Gender Identity Not on file Sexual Orientation Not on file documented as of this encounter Plan of Treatment Not on file documented as of this encounter Procedures Procedure Name Priority Date/Time Associated Diagnosis Comments XR CHEST PA LATERAL 2 VIEWS Routine 09/04/2015 7:19 PM CDT SERUM ESTIMATED GLOMERULAR FILTRATION RATE Routine 09/04/2015 7:05 PM CDT PLASMA COMPREHENSIVE METABOLIC PANEL Routine 09/04/2015 7:05 PM CDT BLOOD CELL COUNT (CBC), MORPHOLOGIC EXAM Routine 09/04/2015 7:05 PM CDT BLOOD CELL MORPHOLOGIC EXAM Routine 09/04/2015 7:05 PM CDT DISCHARGE LABORATORY CUMULATIVE REPORT 09/04/2015 documented in this encounter Results * XR Chest PA Lateral 2 View (09/04/2015 7:19 PM CDT) Anatomical Region Laterality Modality Body, Chest N/A Radiographic Esha ging 09/04/2015 7:19 PM CDT Narrative 09/08/2015 7:03 AM CDT XR Chest 2 Views ?[id number] ??Acc#: ??[id number] DATE OF EXAM: ??Aug ??2015 CLINICAL HISTORY: Shortness of breath, chest pain. RESULT: Two views of the chest are compared to a prior exam dated 05/12/05. ??The lungs are clear bilaterally with no focal infiltrates. ??The heart size and pulmonary vascularity are normal. IMPRESSION: NO ACTIVE DISEASE. Interpreting Physician: ??DR MISA LINDQUIST M.D. ??Read on: ??Apr ??2015 9:48A Transcribed by: ??[facility] ??On: Aug ??2015 ??9:48A Approved Electronically by: ??LEXA Lopez, DR BYNUM ??on: ??Sep 08 2015 7:02A Attending: ??CARMENCITA WITT Requesting: ??CARMENCITA WITT Requesting Fax: ??-- Attending Fax: ??-- Attending ID: ??[id number] Requesting ID: ??[id number] Report To 1 ID: ??[id number] Report To 1 Name: ??CARMENCITA WITT Report To 1 FAX: ??-- NextGen Order #: Procedure Note Provider, MD Gaston - 09/28/2016 XR Chest 2 Views [id number] Acc#: [id number] DATE OF EXAM: Sep 04 2015 CLINICAL HISTORY: Shortness of breath, chest pain. RESULT: Two views of the chest are compared to a prior exam dated 05/12/05. Thelungs are clear bilaterally with no focal infiltrates. The heart size andpulmonary vascularity are normal. IMPRESSION: NO ACTIVE DISEASE. Interpreting Physician: DR MISA LINDQUIST M.D. Read on: Sep 05 [id number] Transcribed by: [facility] On: Sep 05 2015 9:48A Approved Electronically by: LEXA Lopez, DR BYNUM on: Sep 08 20157:02A Attending: CARMENCITA WITT Requesting: CARMENCITA WITT Requesting Fax: -- Attending Fax: -- Attending ID: [id number] Requesting ID: [id number] Report To 1 ID: [id number] Report To 1 Name: CARMENCITA WITT Report To 1 FAX: -- NextGen Order #: us Historical Provider MD DAVID XR PROCEDURES Final R esult * (ABNORMAL) Plasma comprehensive metabolic panel (09/04/2015 7:05 PM CDT) Pathologist [facility] Sodium 141 135 - 145 mmol/L HISTORICAL RESULTS K, pl 3.6 3.5 - 5.1 mmol/L HISTORICAL RESULTS Chloride 102 97 - 110 mmol/L HISTORICAL RESULTS CO2 21(L) 22 - 32 mmol/L HISTORICAL RESULTS A. gap 22(H) 8 - 16 mmol/L HISTORICAL RESULTS Glucose 92 70 - 199 mg/dl HISTORICAL RESULTS Comment: Interpretive Data Note:The glucose is assumed non fasting Fastin-99 mg/dL Random: ??70-199 mg/dL Either a fasting glucose > 126 mg/dL or a random glucose > 200 mg/dL plus symptoms is diagnostic of diabetes when confirmed on another day. Fasting values > 100 mg/dL but < 125 mg/dL are diagnostic of impaired fasting glucose. Current interpretive data was last revised on 2014. BUN 13.1 8.0 - 25.0 mg/dl HISTORICAL RESULTS Creatinine 0.74 0.60 - 1.10 mg/dl HISTORICAL RESULTS BUN/creat ratio 18 10 - 20 HIST ORICAL RESULTS Calcium 9.0 8.6 - 10.2 mg/dl HISTORICAL RESULTS Protein, sr 7.2 6.0 - 8.4 g/dl HISTORICAL RESULTS Alb 4.4 3.6 - 5.0 g/dl HISTORICAL RESULTS Alb/glob ratio 1.6 1.1 - 1.8 ratio HISTORICAL RESULTS Alk phos 70 40 - 130 Units/L HISTORICAL RESULTS ALT 27 5 - 45 Units/L HISTORICAL RESULTS AST 24 10 - 40 Units/L HISTORICAL RESULTS Bilirubin 0.2 <=1.2 mg/dl HISTORICAL RESULTS Plasma 09/04/2015 7:05 PM CDT Historical Provider LAB BLOOD ORDERABLES Chiquita ferro Result HISTORICAL RESULTS * Blood cell morphologic exam (09/04/2015 7:05 PM CDT) Neutrophils 67.8 44.0 - 80.0 % HISTORICAL RESULTS Immature granulocytes 0.2 0.0 - 1.0 % HISTORICAL RESULTS Lymphocytes 21.0 13.0 - 44.0 % HISTORICAL RESULTS Monos 7.5 2.0 - 11.0 % HISTORICAL RESULTS Eosinophils 2.8 0.0 - 6.0 % HISTORICAL RESULTS Basophils 0.7 0.0 - 3.0 % HISTORICAL RESULTS Neutrophils, abs 6.0 1.6 - 7.0 K/cumm HISTORICAL RESULTS Immature granulocyte, abs 0.02 0.00 - 0.20 K/cumm HISTORICAL RESULTS Lymphocytes, abs 1.8 0.5 - 4.3 K/cumm HISTORICAL RESULTS Monocytes, absolute 0.7 0.1 - 1.0 K/cumm HISTORICAL RESULTS Eosinophils, abs 0.2 0.0 - 0.6 K/cumm HISTORICAL RESULTS Basophils, abs 0.1 0.0 - 0.3 K/cumm HISTORICAL RESULTS Blood specimen (specimen) 09/04/2015 7:05 PM CDT Historical Provider LAB BLOOD ORDERABLES Chiquita ferro Result HISTORICAL RESULTS * Blood cell count (CBC), morphologic exam (09/04/2015 7:05 PM CDT) WBC 8.8 3.8 - 9.8 K/cumm HISTORICAL RESULTS RBC 4.61 3.90 - 5.00 M/cumm HISTORICAL RESULTS Hgb 13.6 12.1 - 15.1 g/dl HISTORICAL RESULTS Hct 39.7 36.1 - 44.3 % HISTORICAL RESULTS MCV 86.1 80.0 - 100.0 fl HISTORICAL RESULTS MCH 29.5 26.7 - 33.7 pg HISTORICAL RESULTS MCHC 34.3 32.7 - 36.0 g/dl HISTORICAL RESULTS Rdw 12.5 11.5 - 14.6 % HISTORICAL RESULTS Platelets 280 140 - 440 K/cumm HISTORICAL RESULTS MPV 9.1 8.0 - 12.0 fl HISTORICAL RESULTS NRBC 0.0 0.0 - 0.0 % HISTORIC AL RESULTS NRBC, abs 0.00 0.00 - 0.00 K/cumm HISTORICAL RESULTS Blood specimen (specimen) 09/04/2015 7:05 PM CDT Historical Provider LAB BLOOD ORDERABLES Chiquita l Result Performing Organization Address [facility] de Phone Number HISTORICAL RESULTS * Serum estimated glomerular filtration rate (09/04/2015 7:05 PM CDT) eGFR >60 ml/min/1.7 3 m2 HISTORICAL RESULTS Comment: Interpretation of Estimated GFR (eGFR): Normal ?>/= 60 mL/min/1.73m2 Possible Chronic Kidney Disease ??15 - 59 mL/min/1.73m2 Possible Kidney Failure ?< 15 ??mL/min/1.73m2 If -[place] multiply value by 1.16. ??Estimated glomerular filtration rate is determined by the CKD-EPI equation recommended by the National Kidney Foundation (KDIGO 2012 Clinical Practice Guideline for the Evaluation and Management of Chronic Kidney Disease. ??Kidney Intnl Suppl May 2012;3:1). ??The CKD-EPI equation should not be used in acute renal failure or acute kidney injury and is not valid in children. Serum 09/04/2015 7:05 PM CDT Historical Provider LAB BLOOD ORDERABLES Chiquita l Result HISTORICAL RESULTS * DISCHARGE LABORATORY CUMULATIVE REPORT (09/04/2015) Narrative 09/04/2015 Ordered by an unspecified provider. us Historical Provider LAB BLOOD ORDERABLES Chiquita l Result documented in this encounter Visit Diagnoses Diagnosis Asthma with acute exacerbation Unspecified asthma, with exacerbation Acute bronchitis due to other specified organisms Other viral agents as the cause of diseases classified elsewhere Allergy status to sulfonamides documented in this encounter Care Teams Hazardous Material Specialist Relationship Specialty Start Date End Date Nadir Greene MD [address] [place] [address] PCP - General 11/24/11 09/14/17 documented as of this encounter
--- OUTSIDE RECORDS SUMMARY | 2024-06-12 04:24 | XMS_ITS | Encounter Summary ---
Author Organization [facility] Medical Group Address [address] [place] [address] Care Team Providers Care Door Assembler Name Role Phone Kaveh Loza MD Primary Care Provider [phone] Reason for Visit * Reason Comments Hoarseness comes and goes, feel s choked Encounter Details Date Type Department Care Team (Late st Contact Info) Description 05/07/2019 9:00 AM REGULATORY AFFAIRS DIRECTOR Office Visit [facility] ENT Specialists - [facility] [address] [place] [address] Anh Segura, [address] [place] [address] Chronic laryngitis (Primary Dx); Laryngopharyngeal reflux (LPR) Social History Tobacco Use Types Packs/Day Years Used Date Smoking Tobacco: Former Cigarettes 1 5 Smokeless Tobacco: Never Alcohol Use Standard Drinks/Week Comments No 0 (1 standard drink = 0.6 oz pur e alcohol) Comments No Sex and Gender Information Value Date Recorded Sex Assigned at Not on file Legal Sex Female 1:51 AM REGULATORY AFFAIRS DIRECTOR Gender Identity Not on file Sexual Orientation Not on file documented as of this encounter Last Filed Vital Signs Vital Sign Reading Time Taken Comments Blood Pressure 112/71 05/07/2019 9:12 AM REGULATORY AFFAIRS DIRECTOR Pulse 70 05/07/2019 9:12 AM REGULATORY AFFAIRS DIRECTOR Temperature 36.8 ??C (98.2 ??F) 05/07/2019 9:12 AM CS T Respiratory Rate - - Oxygen Saturation - - Inhaled Oxygen Concentration - - Weight 79.7 kg (175 lb 9.6 oz) 05/07/2019 9:12 A M REGULATORY AFFAIRS DIRECTOR Height 162.6 cm (5' 4 ) 05/07/2019 9:12 AM REGULATORY AFFAIRS DIRECTOR Body Mass Index 30.14 05/07/2019 9:12 AM REGULATORY AFFAIRS DIRECTOR documented in this encounter Patient Instructions * Patient Instructions* Anh Segura, DO - 05/07/2019 9:00 AM REGULATORY AFFAIRS DIRECTOR Zpak with a meal daily Pepcid 40 mg at bedtime daily Call if symptoms become worse or do not improve What is acid reflux? -- Acid reflux is when the acid that is normally in your stomach backs up intothe esophagus, the tube that carries food from your mouth to your stomach. Another term for acid reflux is laryngopharyngeal reflux (LPR) or gastroesophageal reflux (GERD). What are the symptoms of acid reflux? -- The symptoms include: ??? Burning in the chest, known as heartburn ??? Burning in the throat or an acid taste in the throat ??? Stomach or chest pain ??? Trouble swallowing ??? Having a raspy voice or a sore throat ??? Unexplained cough ??? Frequent throat clearing ??? Feeling that there is something caught in your throat Is there anything I can do on my own to improve my symptoms? -- Yes. You might feel better if you: ?Lose weight (if you are overweight) ?Raise the head of your bed by 4-6 inches (for example, by putting blocks of wood under the head ofthe of the bed) ?Avoid foods that make your symptoms worse (examples include coffee, chocolate, alcohol, peppermint, tomatoes, onions and fatty or spicy foods) ?Cut down on the amount of alcohol you drink ?Stop smoking, if you smoke ?Eat a bunch of small meals each day, rather than 2 or 3 big meals ?Avoid lying down for 4 hours after a meal What treatments can help with my acid reflux? -- There are a few main types of medicines that can help with the symptoms of acid reflux: antacids, surface acting agents, histamine blockers, and proton pump inhibitors. All of these medicines work by reducing or blocking stomach acid. But they each do that in a different way. Antacids and surface acting agents can relieve mild symptoms, but they work only for a short time. Histamine blockers are stronger and last longer than antacids and surface acting agents. You can buy antacids and most histamine blockers without a prescription. Proton pump inhibitors are the most effective medicines in treating LPR. Some of these medicines are sold without a prescription. But there are other versions that your doctor can prescribe. Sometimes acid refluxmedicines are less expensive if you get them with a prescription. Other times nonprescription medicines are less expensive. If cost is a concern for you, ask your pharmacist how you might reduce the cost of your medicines. Information provided courtesy of: [employer]?? www.[employer]??2015 UpToDate?? LATORY AFFAIRS DIRECTOR LATORY AFFAIRS DIRECTOR LATORY AFFAIRS DIRECTOR LATORY AFFAIRS DIRECTOR LATORY AFFAIRS DIRECTOR LATORY AFFAIRS DIRECTOR documented in this encounter Ordered Prescriptions Prescription Sig Dispense Quantity Refills Last Filled Start Date End Date azithromycin (ZITHROMAX) 250 mg tabletIndications: Chronic laryngitis Take 2 tablets the first day, then 1 tablet daily for 4 days. 6 tablet 05/07/2019 famotidine (PEPCID) 40 mg tabletIndications: Laryngopharyngeal reflux (LPR) Take 1 tablet (40 mg total) by mouth nightly 90 tablet 3 05/07/2019 2 documented in this encounter Progress Notes * Anh Segura DO - 05/07/2019 9:00 AM CST ENT Consult Reason for Consult: choking and throat pressure, hoarseness Requesting Provider: Kaveh Loza MD SUBJECTIVE: Patient is a 54 y.o. female with chief complaint of choking and throat pressure, hoarseness. HPI: Blank reported location of complaint was throat. This compliant quality was reported as intermittent and has a severity of moderate. The duration of this complaint was the last 15 days. 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 No medication changes, no recent travel, no environment changes. No previous similar symptoms. Did not get Flu shot. Back to midnight shifts 2 days ago. Past Medical History: Diagnosis Date ??? HX OTHER MEDICAL 1998 Cholecystitis ??? HX OTHER MEDICAL 1983 ; Outcome: 40 week 8 lb(s) 3 oz Male ??? HX OTHER MEDICAL 1986 ; Outcome: 40 week 8 lb(s) 4 oz Male ??? HX OTHER MEDICAL 1988 ; Outcome: 40 week 8 lb(s) 11 oz Female ??? Mild intermittent asthma ??? Mononucleosis ??? Tonsillitis 1982 Tonsillitis Patient Active Problem List Diagnosis ??? No pathologic diagnosis ??? Sepsis (CMS/HCC) ??? Community acquired pneumonia of left lower lobe of lung (CMS/HCC) ??? Hypotension ??? Chronic laryngitis ??? Laryngopharyngeal reflux (LPR) Past Surgical History: Procedure Laterality Date ??? OTHER SURGICAL HISTORY 1998 Cholecystitis: Cholecystectomy ??? OTHER SURGICAL HISTORY 1981 Tonsillitis: tonsillectomy ??? OTHER SURGICAL HISTORY 1983 : 48 hr labor ??? OTHER SURGICAL HISTORY 1986 : 6 hr labor ??? OTHER SURGICAL HISTORY 1988 : ??? TUBAL LIGATION Bilateral tubal ligation Social History Tobacco Use ??? Smoking status: Former Smoker Packs/day: 1.00 Years: 5.00 Pack years: 5.00 ??? Smokeless tobacco: Never Used Substance Use Topics ??? Alcohol use: No ??? Drug use: No Family History Problem Relation Age of Onset ??? Asthma Brother Asthma; ??? Diabetes Brother Diabetes mellitus; ??? Asthma Mother Asthma; ??? Diabetes Maternal Grandfather Diabetes mellitus; ??? Diabetes Maternal Grandmother Diabetes mellitus; ??? Breast cancer Maternal Grandmother Cancer, breast; ??? Lung cancer Father Cancer, lung; Current Outpatient Medications on File Prior to Visit Medication Sig Dispense Refill ??? albuterol HFA (PROVENTIL HFA,VENTOLIN HFA) 90 mcg/actuation inhaler Inhale 2 puffs every 4 (four) hours as needed for wheezing or shortness of breath. 1 Inhaler 0 ??? predniSONE (DELTASONE) 10 mg tablet Take 6 tablets oral daily for 2 days then 4 tablets daily for 2 days then 3 tablets daily for 2 days then 2 tablets daily for 2 days then 1 tablet daily for 2 days then stop. (Patient not taking: Reported on 05/07/2019) 32 tablet 0 ??? valACYclovir (VALTREX) 1 gram tablet Take 1 tablet (1,000 mg total) by mouth 3 (three) times a day (Patient not taking: Reported on 05/07/2019) 21 tablet 0 No current facility-administered medications on file prior to visit. Allergies Allergen Reactions ??? Iodine Anaphylaxis ??? Sulfa (Sulfonamide Antibiotics) Anaphylaxis ??? Ciprofloxacin Hives ??? Hydromorphone Hives ??? Morphine Hives ??? Sulfanilamide Hives Reaction: Hives, ??? Augmentin [Amoxicillin-Pot Clavulanate] Other (See comments) Patient states it causes her to have period like bleeding OBJECTIVE: Vitals BP 112/71 (BP Location: Left arm, Patient Position: Sitting) Pulse 70 Temp 36.8 ??C (98.2 ??F) (Oral) Ht 162.6 cm (5' 4 ) Wt 79.7 kg (175 lb 9.6 oz) BMI 30.14 kg/m?? Review of Systems Constitutional: Negative. Negative for chills, fatigue and fever. HENT: Positive for congestion, postnasal drip, sore throat and voice change. Negative for ear discharge, ear pain, hearing loss, nosebleeds, sinus pressure, tinnitus and trouble swallowing. Eyes: Negative. Negative for pain and discharge. Respiratory: Positive for cough. Negative for apnea, choking, shortness of breath, wheezing and stridor. Cardiovascular: Negative for chest pain, palpitations and leg swelling. Gastrointestinal: Negative for abdominal pain, constipation, nausea and vomiting. Negative for Heartburn, trouble swallowing foods or liquids Endocrine: Negative. Negative for cold intolerance and heat intolerance. Musculoskeletal: Negative. Negative for arthralgias, joint swelling, myalgias, neck pain and neck stiffness. Skin: Negative. Negative for color change, rash and wound. Negative for new skin lesions Allergic/Immunologic: Negative. Negative for environmental allergies and food allergies. Neurological: Negative. Negative for dizziness, syncope, speech difficulty, light-headedness and headaches. Hematological: Negative. Negative for adenopathy. Does not bruise/bleed easily. Psychiatric/Behavioral: Negative for agitation, behavioral problems and dysphoric mood. The patientis not nervous/anxious. Physical Exam Constitutional: She is oriented to person, place, and time. She appears well- developed. She is cooperative. No distress. HENT: Head: Normocephalic and atraumatic. Right Ear: Hearing, tympanic membrane, external ear and ear canal normal. Left Ear: Hearing, tympanic membrane, external ear and ear canal normal. Nose: Mucosal edema present. No rhinorrhea, sinus tenderness or nasal deformity. Mouth/Throat: Uvula is midline and mucous membranes are normal. No oral lesions. Posterior oropharyngeal erythema present. Eyes: Pupils are equal, round, and reactive to light. Conjunctivae and lids are normal. Neck: Trachea normal and full passive range of motion without pain. Neck supple. Cardiovascular: No edema, no JVD, normal distal perfusion Pulmonary/Chest: Effort normal. No respiratory distress. No cough, wheezing or stridor Abdominal: Normal appearance. Musculoskeletal: Normal range of motion. Left shoulder: Normal. Lymphadenopathy: She has no cervical adenopathy. Neurological: She is alert and oriented to person, place, and time. No cranial nerve deficit. Coordination and gait normal. Skin: Skin is warm and dry. No rash noted. Nails show no clubbing. Psychiatric: Her speech is normal and behavior is normal. Laryngoscopy procedure Patient was seen and examined, verbal consent was obtained. Laryngeal mirror attempted but unsuccessful due to patient's gag reflex. Afrin and lidocaine were applied into each nasal cavity and after allowing time for local the congestion, flexible fiberoptic scope was introduced into each nasal cavity noting nasal vestibule nasal septum inferior, middle, and superior turbinates. The lateral nasalwall, posterior nasal septum nasopharynx including torus tubarius, fossa of Rosenmuller, posterior nasopharynx and eustachian tube orifice were examined today. Scope was passed further into the oropharynx noting soft palate, base of tongue, vallecula, lingual and laryngeal surfaces of the epiglottis, then further the the larynx noting arytenoids, false and true vocal folds, pyriform sinuses and post-cricoid region. Patient was directed to phonate and swallow. Findings: Intranasally: no masses, polyps or purulence bilaterally, larynx: diffuse inflammation, vocal fold movement was symmetric to midline, swallow intact, no masses, polyps, lesions or ulcers. Assessment & Plan: Diagnoses and all orders for this visit: Chronic laryngitis (Primary) Assessment & Plan: Zpak with a meal daily Call if symptoms become worse or do not improve Orders: - azithromycin (ZITHROMAX) 250 mg tablet; Take 2 tablets the first day, then 1 tablet daily for 4 days. Laryngopharyngeal reflux (LPR) Assessment & Plan: Zpak with a meal daily Pepcid 40 mg at bedtime daily Call if symptoms become worse or do not improve LPR discussed and Handout provided Orders: - famotidine (PEPCID) 40 mg tablet; Take 1 tablet (40 mg total) by mouth nightly Anh Segura DO LATORY AFFAIRS DIRECTOR documented in this encounter Miscellaneous Notes * Assessment & Plan Note - Anh Segura DO - 05/07/2019 12:36 PM REGULATORY AFFAIRS DIRECTOR Associated Problem(s): Chronic laryngitis Zpak with a meal daily Call if symptoms become worse or do not improve LATORY AFFAIRS DIRECTOR * Assessment & Plan Note - Anh Segura DO - 05/07/2019 12:36 PM REGULATORY AFFAIRS DIRECTOR Associated Problem(s): Laryngopharyngeal reflux (LPR) Zpak with a meal daily Pepcid 40 mg at bedtime daily Call if symptoms become worse or do not improve LPR discussed and Handout provided LATORY AFFAIRS DIRECTOR documented in this encounter Plan of Treatment Not on file documented as of this encounter Visit Diagnoses Diagnosis Chronic laryngitis- Primary Laryngopharyngeal reflux (LPR) documented in this encounter Care Teams Door Assembler Relationship Specialty Start Date End Date Kaveh Loza MD PCP - General Internal Medicine 09/15/17 documented as of this encounter
--- OUTSIDE RECORDS SUMMARY | 2024-06-12 04:24 | XMS_ITS | Encounter Summary ---
Author Organization [facility] Healthcare Address [address] [place] [address] Care Team Providers Care Office Engineer Name Role Phone Nadir Greene MD Primary Care Provider + Encounter Details Date Type Department Care Team (Late st Contact Info) Description 05/13/2011 2:25 PM GEOSPATIAL EXTRACTOR ANALYSIS - 05/13/2011 11:59 PM GEOSPATIAL EXTRACTOR ANALYSIS Hospital Encounter [facility] Radha Simons, BODY MAN [address] [facility] [address] [address] [address] Social History Tobacco Use Types Packs/Day Years Used Date Smoking Tobacco: Never Assessed Comments Unknown Sex and Gender Information Value Date Recorded Sex Assigned at Not on file Legal Sex Female 1:51 AM GEOSPATIAL EXTRACTOR ANALYSIS Gender Identity Not on file Sexual Orientation Not on file documented as of this encounter Plan of Treatment Not on file documented as of this encounter Visit Diagnoses Not on filedocumented in this encounter Care Teams Office Engineer Relationship Specialty Start Date End Date Nadir Greene MD [address] [place] [id number] PCP - General 11/05/10 11/23/11 documented as of this encounter
--- OUTSIDE RECORDS SUMMARY | 2024-06-12 04:24 | XMS_ITS | Encounter Summary ---
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 - 04/20/2014 4:34 PM CURLING MACHINE OPERATOR Hospital Encounter [facility] Imelda Temple MD [address] [place] [id number] Otalgia; Dizziness and giddiness Social History Tobacco Use Types Packs/Day Years Used Date Smoking Tobacco: Never Assessed Alcohol Use Standard Drinks/Week Comments No 0 (1 standard drink = 0.6 oz pur e alcohol) Comments Unknown Sex and Gender Information Value Date Recorded Sex Assigned at Not on file Legal Sex Female 1:51 AM CURLING MACHINE OPERATOR Gender Identity Not on file Sexual Orientation Not on file documented as of this encounter Plan of Treatment Not on file documented as of this encounter Procedures Procedure Name Priority Date/Time Associated Diagnosis Comments CT HEAD WO CONTRAST Routine 04/20/2014 4 :06 PM CURLING MACHINE OPERATOR documented in this encounter Results * CT Head WO Contrast (04/20/2014 4:06 PM CURLING MACHINE OPERATOR) Anatomical Region Laterality Modality Head and Neck N/A Computed Tomogra phy 04/20/2014 4:06 PM CURLING MACHINE OPERATOR Narrative 04/21/2014 7:38 PM [place] ?[id number] ??Acc#: ??[id number] DATE OF EXAM: ??Apr 20 2014 CLINICAL HISTORY: Earache for 3 weeks. ??Has been on Amoxicillin twice without effect. Still having pain and feels dizzy. ??Placed on Antivert and dizziness went away, but now back. RESULT: Contiguous noncontrast axial scans were obtained from base of skull to vertex. Ventricles, basal cisterns and cortical sulci are normal. ??Hadley and white matter density are normal. ??No mass, hemorrhage, edema or midline shift is seen. ??No abnormal intraaxial or extraaxial fluid collection is identified. ??No pathological intracranial calcification is seen. Calvarium and base of skull appear intact. ??Mastoid air cells are well developed and aerated. ??Visualized portions of paranasal sinuses are clear. IMPRESSION: NORMAL CT HEAD WITHOUT CONTRAST. ??NO SIGNIFICANT CHANGE COMPARED TO MAY 03. Report called to Zach Johnson in [facility] on April 12 at 1618 hours. Interpreting Physician: ??DR LATIA FAY M.D. ??Read on: ??Apr 20 2014 4:20P Transcribed by: ??vam ??On: Apr 21 2014 10:39A Approved Electronically by: ??NYA Lopez, DR JEFFERY ??on: ??Apr 21 2014 7:38P Ordering DR: ??Elizabeth Attending DR: DR NADIR SHEA Procedure Note Provider, MD Gaston - 09/28/[place] [id number] Acc#: [id number] DATE OF EXAM: Apr 20 2014 CLINICAL HISTORY: Earache for 3 weeks. Has been on Amoxicillin twice without effect. Stillhaving pain and feels dizzy. Placed on Antivert and dizziness went away,but now back. RESULT: Contiguous noncontrast axial scans were obtained from base of skull tovertex. Ventricles, basal cisterns and cortical sulci are normal. Grayand white matter density are normal. No mass, hemorrhage, edema ormidline shift is seen. No abnormal intraaxial or extraaxial fluidcollection is identified. No pathological intracranial calcification isseen. Calvarium and base of skull appear intact. Mastoid air cells arewell developed and aerated. Visualized portions of paranasal sinuses areclear. IMPRESSION: NORMAL CT HEAD WITHOUT CONTRAST. NO SIGNIFICANT CHANGE COMPARED TO . [facility] at 1618 hours. Interpreting Physician: DR LATIA FAY M.D. Read on: Apr 20 20144:20P Transcribed by: raf On: Apr 21 2014 10:39A Approved Electronically by: NYA Lopez, DR JEFFERY on: Apr 21 20147:38P Ordering DR: Elizabeth Attending DR: DR NADIR SHEA Historical Provider MD DAVID CT PROCEDURES Final R esult documented in this encounter Visit Diagnoses Diagnosis Otalgia Unspecified otalgia Dizziness and giddiness documented in this encounter Care Teams Construction Site Crossing Guard Relationship Specialty Start Date End Date Nadir Shea MD [facility] [place] [address] PCP - General 11/24/11 09/14/17 documented as of this encounter
--- OUTSIDE RECORDS SUMMARY | 2024-06-12 04:24 | XMS_ITS | Encounter Summary ---
Author Organization [facility] Healthcare Address [address] [place] [address] Care Team Providers Care Metal Bonding Crib Attendant Name Role Phone Kaveh Loza MD Primary Care Provider [phone] Reason for Visit * Reason Comments Leg Pain Encounter Details Date Type Department Care Team (Late st Contact Info) Description 12/10/2018 11:33 AM CDT - 12/10/2018 12:52 PM CDT Emergency [facility] Emergency Department [address] [place] [id number] Pete Cunha MD [address] [place] [id number] Herpes zoster without complication (Primary Dx) Discharge Disposition: Discharge to home or self care Social History Tobacco Use Types Packs/Day Years Used Date Smoking Tobacco: Former Cigarettes 1 5 Smokeless Tobacco: Never Alcohol Use Standard Drinks/Week Comments No 0 (1 standard drink = 0.6 oz pur e alcohol) Comments No Sex and Gender Information Value Date Recorded Sex Assigned at Not on file Legal Sex Female 1:51 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 Gender Identity Not on file Sexual Orientation Not on file documented as of this encounter Last Filed Vital Signs Vital Sign Reading Time Taken Comments Blood Pressure 112/76 12/10/2018 12:30 PM CDT Pulse 74 12/10/2018 12:35 PM CDT Temperature 36.4 ??C (97.6 ??F) 12/10/2018 11:48 AM C DT Respiratory Rate 18 12/10/2018 11:48 AM CDT Oxygen Saturation 95% 12/10/2018 12:35 PM CDT Inhaled Oxygen Concentration - - Weight - - Height - - Body Mass Index - - documented in this encounter Discharge Diagnoses Diagnosis Zoster without complications - ZOSTER WITHOUT COMPLICATIONS Uncomplicated asthma - UNSPECIFIED ASTHMA, UNCOMPLICATED Tubal ligation status - TUBAL LIGATION STATUS Personal history of nicotine dependence - PERSONAL HISTORY OF NICOTINE DEPENDENCE Allergy status to sulfonamides - ALLERGY STATUS TO SULFONAMIDES STATUS documented in this encounter Discharge Instructions * Discharge Instructions* Pete Cunha MD - 12/10/2018 12:36 PM CDT Take all the antiviral medicine and prednisone. Follow up with your physician. You may develop someblisters over the next couple days. Keep your leg covered at work. * Attachments The following attachments cannot be sent through Care Everywhere. * Shingles (General Information) (Azeri) documented in this encounter Medications at Time of Discharge predniSONE (DELTASONE) 10 mg tablet Take 6 tablets oral daily for 2 days then 4 tablets daily for 2 days then 3 tablets daily for 2 days then 2 tablets daily for 2 days then 1 tablet daily for 2 days then stop. 32 tablet 12/10/2018 valACYclovir (VALTREX) 1 gram tablet Take 1 tablet (1,000 mg total) by mouth 3 (three) times a day 21 tablet 12/10/2018 documented as of this encounter Ordered Prescriptions Prescription Sig Dispense Quantity Refills Last Filled Start Date End Date predniSONE (DELTASONE) 10 mg tablet Take 6 tablets oral daily for 2 days then 4 tablets daily for 2 days then 3 tablets daily for 2 days then 2 tablets daily for 2 days then 1 tablet daily for 2 days then stop. 32 tablet 12/10/2018 valACYclovir (VALTREX) 1 gram tablet Take 1 tablet (1,000 mg total) by mouth 3 (three) times a day 21 tablet 12/10/2018 documented in this encounter Discharge Disposition Disposition Code Departure Means Destination Discharge to home or self care Other documented in this encounter ED Notes * Sangita Bangura RN - 12/10/2018 11:45 AM CDT Pt presents to the ED for c/o L leg and calf pain that started about 3 days ago. Pt also has a carlos her L leg. Pt describes the pain as pins and needles . She has had no injury to the area. * Pete Cunha MD - 12/10/2018 11:45 AM CDT HPI Chief Complaint Patient presents with ??? Leg Pain (1137): 53 y/o female, with no pertinent past medical history, presents with pain, paresthesias, and a burning sensation to the left lower extremity that began 2-3 days ago. Her pain is exacerbatedwhen wearing shoes, but is unchanged with certain positions and when sitting. No recent injury or trauma to the left lower extremity. No numbness or weakness in the left lower extremity. No lower back pain. She also has a patchy rash to the left upper and lower legs. Denies a history of similar symptoms nor does she have any symptoms in the right lower extremity. She has had chicken pox in the past. No history of diabetes. No other complaints at this time. Patient History Patient Active Problem List Diagnosis Date Noted ??? Sepsis (CMS/[facility]) 09/16/2017 ??? Community acquired pneumonia of left lower lobe of lung (CMS/[facility]) 09/16/2017 ??? Hypotension 09/16/2017 ??? No pathologic diagnosis 11/28/2012 Class: Chronic Past Medical History: Diagnosis Date ??? HX OTHER MEDICAL 1998 Cholecystitis ??? HX OTHER MEDICAL 1983 ; Outcome: 40 week 8 lb(s) 3 oz Male ??? HX OTHER MEDICAL 1986 ; Outcome: 40 week 8 lb(s) 4 oz Male ??? HX OTHER MEDICAL 1988 ; Outcome: 40 week 8 lb(s) 11 oz Female ??? Mild intermittent asthma ??? Mononucleosis ??? Tonsillitis 1981 Tonsillitis Past Surgical History: Procedure Laterality Date ??? OTHER SURGICAL HISTORY 1998 Cholecystitis: Cholecystectomy ??? OTHER SURGICAL HISTORY 1981 Tonsillitis: tonsillectomy ??? OTHER SURGICAL HISTORY 1983 : 48 hr labor ??? OTHER SURGICAL HISTORY 1986 : 6 hr labor ??? OTHER SURGICAL HISTORY 1988 : ??? TUBAL LIGATION Bilateral tubal ligation Family History Problem Relation Age of Onset ??? Asthma Brother Asthma; ??? Diabetes Brother Diabetes mellitus; ??? Asthma Mother Asthma; ??? Diabetes Maternal Grandfather Diabetes mellitus; ??? Diabetes Maternal Grandmother Diabetes mellitus; ??? Breast cancer Maternal Grandmother Cancer, breast; ??? Lung cancer Father Cancer, lung; Social History Tobacco Use ??? Smoking status: Former Smoker Packs/day: 1.00 Years: 5.00 Pack years: 5.00 ??? Smokeless tobacco: Never Used Substance Use Topics ??? Alcohol use: No ??? Drug use: No Social History Social History Narrative Works at [employer] Review of Systems Review of Systems Constitutional: Negative for chills and fever. HENT: Negative for congestion, rhinorrhea and sore throat. Eyes: Negative for pain. Respiratory: Negative for cough and shortness of breath. Cardiovascular: Negative for chest pain and leg swelling. Gastrointestinal: Negative for abdominal pain, diarrhea, nausea and vomiting. Genitourinary: Negative for difficulty urinating. Musculoskeletal: Negative for back pain. Pain to left lower extremity Skin: Positive for rash. Neurological: Negative for weakness, numbness and headaches. Paresthesias in left lower extremity. Physical Exam ED Triage Vitals [12/10/18 1148] Temp Pulse Resp BP SpO2 36.4 ??C (97.6 ??F) 67 18 120/76 99 % Temp src Heart Rate Source Patient Position BP Location FiO2 (%) Oral -- -- -- -- Physical Exam Constitutional: She is oriented to person, place, and time. She appears well- developed and well-nourished. No distress. HENT: Head: Normocephalic and atraumatic. Eyes: Conjunctivae and EOM are normal. Neck: Normal range of motion. Neck supple. Cardiovascular: Normal rate, regular rhythm and intact distal pulses. Pulmonary/Chest: Effort normal and breath sounds normal. No respiratory distress. She has no wheezes. Abdominal: Soft. She exhibits no distension. There is no tenderness. Musculoskeletal: She exhibits no edema or deformity. Neurological: She is alert and oriented to person, place, and time. No motor or sensory deficits. Skin: Skin is dry. Patchy areas of raised erythematous rash to the left upper and lower leg. Nursing note and vitals reviewed. [facility] Vitals: 12/10/18 1148 BP: 120/76 Pulse: 67 Resp: 18 Temp: 36.4 ??C (97.6 ??F) TempSrc: Oral SpO2: 99% Labs Reviewed CBC WITH AUTO DIFFERENTIAL - Abnormal Result Value WBC 6.2 Hgb 13.5 Hct 39.1 Plt 248 MPV 9.0 (*) RBC 4.60 MCV 85.0 MCH 29.3 MCHC 34.5 RDW CV 12.5 RDW SD 38.6 NRBC Abs 0.00 DIFFERENTIAL AUTO Neutrophil absolute 3.8 Immature granulocyte absolute 0.0 Lymphocytes absolute 1.6 Monocyte absolute 0.5 Eosinophils absolute 0.3 Basophils, abs 0.1 Neutrophils 60.1 Immature granulocytes 0.3 Lymphocytes 26.0 Monocytes 8.0 Eosinophils 4.6 Basophils 1.0 No orders to display Procedures MDM Number of Diagnoses or Management Options Herpes zoster without complication: Amount and/or Complexity of Data Reviewed Clinical lab tests: ordered and reviewed Risk of Complications, Morbidity, and/or Mortality Presenting problems: moderate Diagnostic procedures: moderate Management options: moderate General comments: Clinical picture is consistent with shingles. She has pain in the leg with no trauma with patchy areas of rash. These could be early blisters. Will treat for shingles and have her follow up with her physician. Patient Progress Patient progress: stable Clinical Impression: 1. Herpes zoster without complication This note was prepared by Edison Perez, acting as a Scribe for Pete Cunha MD. I electronically signed this note at 12:03 PM on 12/10/2018. I, Pete Cunha MD, have personally performed the services described in the documentation, reviewed the documentation, as recorded by the scribe in my presence. Pete Cunha MD 12/10/18 1239 documented in this encounter Plan of Treatment Not on file documented as of this encounter Procedures Procedure Name Priority Date/Time Associated Diagnosis Comments DIFFERENTIAL AUTO STAT 12/10/2018 12: 04 PM CDT CBC WITH AUTO DIFFERENTIAL STAT 12/10/2018 12:04 PM CDT documented in this encounter Results * Differential, auto (12/10/2018 12:04 PM CDT) Neutrophil abs 3.8 1.7 - 6.5 K/cumm [facility] ([facility] Imm gran abs 0.0 0.0 - 0.1 K/cumm [facility] ([place]) Lymphocyte abs 1.6 0.8 - 3.3 K/cumm [facility] ([place]) Monocyte abs 0.5 0.2 - 0.8 K/cumm [facility] ([place]) Eosinophil abs 0.3 0.0 - 0.5 K/cumm [facility] ([place]) Basophil abs 0.1 0.0 - 0.1 K/cumm [facility] ([place]) Neutrophil pct 60.1 % [facility] ([place] Comment: Interpretive Data Percent cell count reference ranges are not reported, since discordance with absolute values may lead to misinterpretation of CBC data. Current Interpretive Data was last revised on 2017. Imm gran pct 0.3 % [facility] ([facility] Comment: Interpretive Data Percent cell count reference ranges are not reported, since discordance with absolute values may lead to misinterpretation of CBC data. Current Interpretive Data was last revised on 2017. Lymphocyte pct 26.0 % [facility] ([facility] Comment: Interpretive Data Percent cell count reference ranges are not reported, since discordance with absolute values may lead to misinterpretation of CBC data. Current Interpretive Data was last revised on 2017. Monocyte pct 8.0 % [facility] ([facility]) Comment: Interpretive Data Percent cell count reference ranges are not reported, since discordance with absolute values may lead to misinterpretation of CBC data. Current Interpretive Data was last revised on 2017. Eosinophil pct 4.6 % [facility] ([facility] Comment: Interpretive Data Percent cell count reference ranges are not reported, since discordance with absolute values may lead to misinterpretation of CBC data. Current Interpretive Data was last revised on 2017. Basophil pct 1.0 % [facility] ([place]) Comment: Interpretive Data Percent cell count reference ranges are not reported, since discordance with absolute values may lead to misinterpretation of CBC data. Current Interpretive Data was last revised on 2017. Blood specimen (specimen) 12/10/2018 12:04 PM CDT 12/10/2018 12:13 PM CDT Pete Cunha MD LAB BLOOD ORDERABLES Final R esult Performing Organization Address City/[facility]/ZIP Co de Phone Number [facility] ([facility]) 1 [facility] Department [place] [address] * (ABNORMAL) CBC with auto differential (12/10/2018 12:04 PM CDT) WBC 6.2 3.8 - 9.9 K/cumm [facility] ([facility]) Hgb 13.5 11.9 - 15.5 g/dL [facility] Hct 39.1 35.6 - 45.5 % [facility] ([place] Plt 248 150 - 400 K/cumm [facility] ([facility]) MPV 9.0(L) 9.1 - 12.3 fL [facility] RBC 4.60 3.90 - 5.20 M/cumm [facility] ([place]) MCV 85.0 81.3 - 96.4 fL [facility] ([place]) MCH 29.3 27.1 - 33.3 pg [facility] ([place]) MCHC 34.5 32.3 - 35.7 g/dL [facility] RDW CV 12.5 11.1 - 14.9 % [facility] ([place] RDW SD 38.6 35.7 - 48.1 fL [facility] NRBC abs 0.00 0.00 - 0.01 K/cumm [facility] Blood specimen (specimen) 12/10/2018 12:04 PM CDT 12/10/2018 12:13 PM CDT Pete Cunha MD LAB BLOOD ORDERABLES Final R esult [facility] 1 [facility] Department [place] [address] documented in this encounter Visit Diagnoses Diagnosis Herpes zoster without complication- Primary documented in this encounter Care Teams Metal Bonding Crib Attendant Relationship Specialty Start Date End Date Kaveh Loza MD PCP - General Internal Medicine 09/15/17 documented as of this encounter
--- OUTSIDE RECORDS SUMMARY | 2024-06-12 04:24 | XMS_ITS | Encounter Summary ---
Author Organization [facility] Healthcare Address [address] [place] [address] Care Team Providers Care Master Glazier Name Role Phone Nadir Greene MD Primary Care Provider + Encounter Details Date Type Department Care Team (Late st Contact Info) Description 05/13/2011 1:16 PM FIELD EDUCATION DIRECTOR - 05/13/2011 11:59 PM FIELD EDUCATION DIRECTOR Hospital Encounter [facility] Radha Simons, FAMILY NURSE [address] [facility] [address] [place] [address] [address] Symptomatic menopausal or female climacteric states Social History Tobacco Use Types Packs/Day Years Used Date Smoking Tobacco: Never Assessed Comments Unknown Sex and Gender Information Value Date Recorded Sex Assigned at Not on file Legal Sex Female 1:51 AM FIELD EDUCATION DIRECTOR Gender Identity Not on file Sexual Orientation Not on file documented as of this encounter Plan of Treatment Not on file documented as of this encounter Visit Diagnoses Diagnosis Symptomatic menopausal or female climacteric states documented in this encounter Care Teams Master Glazier Relationship Specialty Start Date End Date Nadir Greene MD [address] [place] [address] PCP - General 11/05/10 11/23/11 documented as of this encounter
--- OUTSIDE RECORDS SUMMARY | 2024-06-12 04:24 | XMS_ITS | Referral Summary ---
[facility] Address [address] [place] [address] Care Team Providers Care Test Architect Name Role Phone Kaveh Loza MD Primary Care Provider Allergies Active Allergy Reactions Criticality Noted Date Comments Amoxicillin-Pot Clavulanate Other (See comments) Low 09/16/2017 Patient states it causes her to have period like bleeding Ciprofloxacin Hives Medium Hydromorphone Hives Medium Iodine Anaphylaxis High 09/16/2017 Morphine Hives Medium Sulfa (Sulfonamide Antibiotics) Anaphylaxis,Hives High 07/10/2020 Sulfanilamide Hives Reaction: Hives, Medications albuterol HFA (PROVENTIL HFA,VENTOLIN HFA) 90 mcg/actuation inhaler Inhale 2 puffs every 4 (four) hours as needed for wheezing or shortness of breath. 1 Inhaler 09/17/19 18 Active valACYclovir (VALTREX) 1 gram tablet Take 1 tablet (1,000 mg total) by mouth 3 (three) times a day 21 tablet 12/11/19 19 Active Additional Information Patient not taking.Reported on 05/07/2019 predniSONE (DELTASONE) 10 mg tablet Take 6 tablets oral daily for 2 days then 4 tablets daily for 2 days then 3 tablets daily for 2 days then 2 tablets daily for 2 days then 1 tablet daily for 2 days then stop. 32 tablet 12/11/19 19 Active Additional Information Patient not taking.Reported on 05/07/2019 azithromycin (ZITHROMAX) 250 mg tabletIndications: Chronic laryngitis Take 2 tablets the first day, then 1 tablet daily for 4 days. 6 tablet 05/07/20 19 Active cyclobenzaprine (FLEXERIL) 5 mg tablet Take 1 tablet (5 mg total) by mouth 3 (three) times a day as needed for muscle spasms 30 tablet 01/16/20 20 Active naproxen (NAPROSYN) 500 mg tablet Take 1 tablet (500 mg total) by mouth 2 (two) times a day with meals 14 tablet 01/16/20 20 Active ondansetron ODT (ZOFRAN-ODT) 4 mg disintegrating tablet Take 1 tablet (4 mg total) by mouth every 8 (eight) hours as needed for nausea or vomiting 20 tablet 01/15/20 22 Active famotidine (PEPCID) 40 mg tablet Take 1 tablet (40 mg total) by mouth nightly for 14 days 20 tablet 01/15/20 22 Active dicyclomine (BENTYL) 20 mg tablet Take 1 tablet (20 mg total) by mouth every 8 (eight) hours as needed (Crampy abdominal pain) 20 tablet 01/15/20 22 Active oxyCODONE-acetamin ophen (PERCOCET) 10-325 mg per tabletIndications: Pain Take 1 tablet by mouth every 4 (four) hours as needed for pain 20 tablet 10/23/19 23 Active Active Problems Problem Noted Date Diagnosed Date Chronic laryngitis 05/07/2019 Assessment & Plan (05/07/2019 12:36 PM DISTILLERY WORKER): Zpak with a meal daily Call if symptoms become worse or do not improve Laryngopharyngeal reflux (LPR) 05/07/2019 Assessment & Plan (05/07/2019 12:36 PM DISTILLERY WORKER): Zpak with a meal daily Pepcid 40 mg at bedtime daily Call if symptoms become worse or do not improve LPR discussed and Handout provided Sepsis 09/16/2017 Community acquired pneumonia of left lower lobe of lung 09/16/2017 Hypotension 09/16/2017 No pathologic diagnosis 11/28/2012 Overview (09/03/2016): No diagnosis Social History Tobacco Use Types Packs/Day Years Used Date Smoking Tobacco: Former Cigarettes 1 5 Smokeless Tobacco: Never Alcohol Use Standard Drinks/Week Comments No 0 (1 standard drink = 0.6 oz pur e alcohol) Personal Safety Answer Date Recorded Have you ever been in or are you currently in a harmful physical or emotional relationship or is someone making you feel afraid or unsafe? Denies 10/22/2022 Comments No Sex and Gender Information Value Date Recorded Sex Assigned at Not on file Legal Sex Female 1:51 AM DISTILLERY WORKER Gender Identity Not on file Sexual Orientation Not on file Last Filed Vital Signs Vital Sign Reading Time Taken Comments Blood Pressure 95/67 10/22/2022 1:00 PM CDT Pulse 75 10/22/2022 1:00 PM CDT Temperature 37.1 ??C (98.8 ??F) 10/22/2022 10:45 AM C DT Respiratory Rate 22 10/22/2022 10:45 AM CDT Oxygen Saturation 100% 10/22/2022 1:00 PM CDT Inhaled Oxygen Concentration - - Weight 73.5 kg (162 lb) 10/22/2022 10:45 AM CDT Height 157.5 cm (5' 2 ) 10/22/2022 10:45 AM CDT Body Mass Index 29.63 10/22/2022 10:45 AM CDT Plan of Treatment Not on file Insurance [employer] OPEN ACCESS CIGNA OPEN ACCESS MULTIPLAN CARE OTHER [facility] CHOICE PLUS [facility] OPEN ACCESS [facility] CHOICE PLUS Advance Directives For more information, please contact: [phone] * Full Code (Latest Code Status on File) Date Activated Date Inactivated Comments 09/16/2017 2:25 AM 09/17/2017 5:11 PM Care Teams Test Architect Relationship Specialty Start Date End Date Kaveh Loza MD PCP - General Internal Medicine 09/15/17
--- OUTSIDE RECORDS SUMMARY | 2024-06-12 04:24 | XMS_ITS | Encounter Summary ---
Author Organization [facility] Healthcare Address [address] [place] [address] Care Team Providers Care Account Leader Name Role Phone Nadir Greene MD Primary Care Provider + Encounter Details Date Type Department Care Team (Late st Contact Info) Description 11/28/2012 3:18 PM CDT - 11/28/2012 11:59 PM CDT Hospital Encounter [facility] Arley Rios MD [address] SHARMA [address] [place] [address] Radha Waters NP [address] CAROLINE Abbott [address] [address] Symptomatic menopausal or female climacteric states Social History Tobacco Use Types Packs/Day Years Used Date Smoking Tobacco: Never Assessed Alcohol Use Standard Drinks/Week Comments No 0 (1 standard drink = 0.6 oz pur e alcohol) Comments Unknown Sex and Gender Information Value Date Recorded Sex Assigned at Not on file 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 <10 years ?<0.9 ng/ml ?? Mid-Follicular ? <1.6 ng/ml ?? Mid-Luteal ?5.0 - 18.6 ng/ml ?? Post Menopausal ? <0.8 ng/ml Female ?? 1st Trimester ? 4.7 ??- 50.7 ?ng/ml ?? 2nd Trimester ?? 19.4 - 45.3 ?ng/ml Male ?<0.9 ng/ml Serum 11/28/2012 3:19 PM CDT Arley Rios MD LAB BLOOD ORDERABLES Final Result HISTORICAL RESULTS * (ABNORMAL) Serum testosterone fraction (11/28/2012 10:19 AM CDT) Testosterone 68(H) 8 - 60 ng/dl HISTORICAL RESULTS Comment: Testing performed by Liquid Chromatography-Tandem Mass Spectrometry (LC-MS/MS). Testosterone, free 1.1 0.3 - 1.9 ng/dl HISTORICAL RESULTS Comment:Testing performed by Equilibrium Dialysis. Serum 11/28/2012 10:1 9 AM CDT Narrative HISTORICAL RESULTS - 12/02/2012 6:55 AM CDT Test performed at [facility] Dept of Lab Medicine and Pathology, [address], [place], [place], [address]. Arley Rios MD LAB BLOOD ORDERABLES Final Result HISTORICAL RESULTS * DISCHARGE LABORATORY CUMULATIVE REPORT (11/28/2012) Narrative 11/28/2012 Ordered by an unspecified provider. us Historical Provider LAB BLOOD ORDERABLES Chiquita l Result documented in this encounter Visit Diagnoses Diagnosis Symptomatic menopausal or female climacteric states documented in this encounter Care Teams Account Leader Relationship Specialty Start Date End Date Nadir Greene MD [address] [place] [id number] PCP - General 11/24/11 09/14/17 documented as of this encounter
--- OUTSIDE RECORDS SUMMARY | 2024-06-12 04:24 | XMS_ITS | Clinical Summary ---
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): Zpak with a meal daily Pepcid 40 mg at bedtime daily Call if symptoms become worse or do not improve LPR discussed and Handout provided Sepsis 09/16/2017 Community acquired pneumonia of left lower lobe of lung 09/16/2017 Hypotension 09/16/2017 No pathologic diagnosis 11/28/2012 Overview (09/03/2016): No diagnosis Surgical History Surgery Date Site/Laterality Comments OTHER SURGICAL HISTORY 1998 Cholecystitis: Cholecystectomy OTHER SURGICAL HISTORY 1981 Tonsillitis: tonsillectomy OTHER SURGICAL HISTORY 1983 : 48 hr labor OTHER SURGICAL HISTORY 1986 : 6 hr labor OTHER SURGICAL HISTORY 1988 : TUBAL LIGATION Bilateral tubal ligation Medical History Medical History Date Comments Hx Other Medical 1998 Cholecystitis Tonsillitis 1982 Tonsillitis Hx Other Medical 1983 ; Outc ome: 40 week 8 lb(s) 3 oz Male Hx Other Medical 1986 ; Outc ome: 40 week 8 lb(s) 4 oz Male Hx Other Medical 1988 ; Outc ome: 40 week 8 lb(s) 11 oz Female Mild intermittent asthma Mononucleosis Family History Medical History Relation Name Comments Asthma Brother 1 Asthma; Diabetes Brother 2 Diabetes mellit us; Lung cancer Father Cancer, lung; Diabetes Maternal Grandfather Diabete s mellitus; Breast cancer Maternal Grandmother Cancer , breast; Diabetes Maternal Grandmother Diabete s mellitus; Asthma Mother Asthma; Relation Name Status Comments Brother 1 Brother 2 Father Maternal Grandfather Maternal Grandmother Mother Social History Tobacco Use Types Packs/Day Years [...] on file 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 Gender Identity Not on file Sexual Orientation Not on file Obstetrics History Last Filed Vital Signs Vital Sign Reading [...] 10/22/2022 10:45 AM CDT Plan of Treatment Health Maintenance Due Date Last Done Comments Breast Cancer Screening-Mammogram 1963 Cervical Cancer Screening 1963 Colon Cancer Screening-Colonoscopy 1963 Depression Screening 1963 Hepatitis C Screening 1963 Regular Well Visit/Exam 18-64 1981 Zoster Vaccine (1 of 2) 2013 Influenza Vaccine (#1) 2024 DTaP/Tdap/Td Vaccine (2 - Td or Tdap) 10/10/2024 10/10/2014 Pneumococcal vaccine <65 Aged Out No longer eligible based on patient's age to complete this topic Insurance [employer] OPEN ACCESS [employer] OPEN ACCESS MULTIPLAN CARE OTHER [facility] CHOICE PLUS [place] [id number] [facility] OPEN ACCESS [facility] CHOICE PLUS [place] [id number] Advance Directives For more information, please contact: [phone] * Full Code (Latest Code Status on File) Date Activated Date Inactivated Comments 09/16/2017 2:25 AM 09/17/2017 5:11 PM Care Teams Mask Inspector Relationship Specialty Start Date End Date Kaveh Loza MD PCP - General Internal Medicine 09/15/17
--- OUTSIDE RECORDS SUMMARY | 2024-06-12 04:24 | XMS_ITS | Encounter Summary ---
Author Organization [facility] Care Team Providers Care Precision Jig Grinder Name Role Phone Kaveh Loza MD Primary Care Provider [phone] Encounter Details Date Type Department Care Team (Latest Contact Info) Description 05/07/2019 Travel Social History Tobacco Use Types Packs/Day Years Used Date Smoking Tobacco: Former Cigarettes 1 5 Smokeless Tobacco: Never Alcohol Use Standard Drinks/Week Comments No 0 (1 standard drink = 0.6 oz pur e alcohol) Comments No Sex and Gender Information Value Date Recorded Sex Assigned at Not on file 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
--- OUTSIDE RECORDS SUMMARY | 2024-06-12 04:24 | XMS_ITS | Encounter Summary ---
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 Gender Identity Not on file Sexual Orientation Not on file documented as of this encounter Plan of Treatment Not on file documented as of this encounter Procedures Procedure Name Priority Date/Time Associated Diagnosis Comments XR SPINE LUMBAR ROUTINE Routine 09/28/2012 10:26 PM CDT XR SPINE THORACIC 3 VIEWS Routine 09/28/2012 10:26 PM CDT XR SPINE CERVICAL COMPLETE 4 OR 5 VW Routine 09/28/2012 10:26 PM CDT documented in this encounter Results * XR Spine Cervical Complete 4 Or 5 View (09/28/2012 10:26 PM CDT) Anatomical Region Laterality Modality Spine N/A Radiographic Esha ging 09/28/2012 10:2 6 PM CDT Narrative 09/29/2012 10:57 AM CDT XR Lumbar Spine Routine ??[id number] ??Acc#: ??[id number] DATE OF EXAM: ??May ??2012 CLINICAL HISTORY: Lumbar pain. ??Lifting a lot at work. RESULT: AP, lateral and oblique images of the lumbar spine obtained. ??There are five lumbar type vertebral bodies anatomically aligned. ??Disc space heights still appear to be normally maintained. ??There are mild degenerative endplate spurs most notable at the L3-L4 level and also there are mild facet degenerative changes most evident at L4-L5 and L5-S1. ??There is no lumbar compression fracture. ??Clips in the right upper quadrant are compatible with cholecystectomy. IMPRESSION: 1. MINOR DEGENERATIVE CHANGES OF THE LUMBAR SPINE WITH NO COMPRESSION FRACTURE IDENTIFIED. 2. CHOLECYSTECTOMY CLIPS RIGHT UPPER QUADRANT. XR Cervical Spine Routine 4 View ??Acc#: ??[id number] DATE OF EXAM: ??May ??2012 HISTORY: Right-sided neck and shoulder pain. FINDINGS: AP, lateral, oblique and odontoid views were obtained. Cervical vertebral body alignment is anatomic. ??No fracture or dislocation is seen. ??There are small degenerative endplate spurs most notable at the C5-C6 and C6-C7 levels. ??On the oblique images, there is very mild osteophyte encroachment into the C5-C6 neural foramen on the right and minimally into the C5-C6 and C6-C7 neural foramen on the left. C1-C2 articulation is normal on the open mouth view. COMPRESSION: MINOR DEGENERATIVE CHANGES OF THE CERVICAL SPINE WITH NO FRACTURE OR DISLOCATION IDENTIFIED. XR Thoracic Spine Routine [id number] ??Acc#: ??[id number] DATE OF EXAM: ??May ??2012 HISTORY: Thoracic pain. ??Lifting a lot at work. FINDINGS: AP and lateral views of the thoracic spine obtained. ??On AP radiograph there is very slight tilt toward the left side. ??There is no paraspinal widening. ??There is no thoracic compression fracture. ??Minimal degenerative endplate spurs are noted in the mid and lower thoracic region. CONCLUSION: MINIMAL DEGENERATIVE CHANGES OF THORACIC SPINE WITH NO COMPRESSION FRACTURE IDENTIFIED. Interpreting Physician: ??JIGNESH ROJAS M.D. ??Read on: ??May ??3 2013 ??6:11A Transcribed by: ??VLR ??On: May ??3 2012 ??9:55A Approved Electronically by: ??JIGNESH ROJAS M.D. ??on: ??May ??3 2012 10:57A Ordering DR: NOA BEARD Attending DR: DR NADIR SHEA Procedure Note Provider, MD Gaston - 09/28/2016 XR Lumbar Spine Routine [id number] Acc#: [id number] DATE OF EXAM: Sep 28 2012 CLINICAL HISTORY: Lumbar pain. Lifting a lot at work. RESULT: AP, lateral and oblique images of the lumbar spine obtained. There arefive lumbar type vertebral bodies anatomically aligned. Disc spaceheights still appear to be normally maintained. There are milddegenerative endplate spurs most notable at the L3-L4 level and also thereare mild facet degenerative changes most evident at L4-L5 and L5-S1.There is no lumbar compression fracture. Clips in the right upperquadrant are compatible with cholecystectomy. IMPRESSION: 1. MINOR DEGENERATIVE CHANGES OF THE LUMBAR SPINE WITH NO COMPRESSIONFRACTURE IDENTIFIED. 2. CHOLECYSTECTOMY CLIPS RIGHT UPPER QUADRANT. XR Cervical Spine Routine 4 View Acc#: [id number] DATE OF EXAM: Sep 28 2012 HISTORY: Right-sided neck and shoulder pain. FINDINGS: AP, lateral, oblique and odontoid views were obtained. Cervical vertebralbody alignment is anatomic. No fracture or dislocation is seen. Thereare small degenerative endplate spurs most notable at the C5-C6 and C6-J2warzoq. On the oblique images, there is very mild osteophyte encroachmentinto the C5-C6 neural foramen on the right and minimally into the C5-C6and C6-C7 neural foramen on the left. C1- C2 articulation is normal on theopen mouth view. COMPRESSION: MINOR DEGENERATIVE CHANGES OF THE CERVICAL SPINE WITH NO FRACTURE ORDISLOCATION IDENTIFIED. XR Thoracic Spine Routine [id number] Acc#: [id number] DATE OF EXAM: Sep 28 2012 HISTORY: Thoracic pain. Lifting a lot at work. FINDINGS: AP and lateral views of the thoracic spine obtained. On AP radiographthere is very slight tilt toward the left side. There is no paraspinalwidening. There is no thoracic compression fracture. Minimaldegenerative endplate spurs are noted in the mid and lower thoracicregion. CONCLUSION: MINIMAL DEGENERATIVE CHANGES OF THORACIC SPINE WITH NO COMPRESSIONFRACTURE IDENTIFIED. Interpreting Physician: JIGNESH ROJAS M.D. Read on: Sep 29 2012 6:11A Transcribed by: LUIS On: Sep 29 2012 9:55A Approved Electronically by: JIGNESH ROJAS M.D. on: Sep 29 2012 10:57A Ordering DR: NOA BEARD Attending DR: DR NADIR SHEA us Historical Provider IMCarl XR PROCEDURES Final R esult * XR Lumbar Spine Routine (09/28/2012 10:26 PM CDT) Anatomical Region Laterality Modality L-spine N/A Radiographic Esha ging 09/28/2012 10:2 6 PM CDT Narrative 09/29/2012 10:57 AM CDT XR Lumbar Spine Routine ??[id number] ??Acc#: ??[id number] DATE OF EXAM: ??September ??2012 CLINICAL HISTORY: Lumbar pain. ??Lifting a lot at work. RESULT: AP, lateral and oblique images of the lumbar spine obtained. ??There are five lumbar type vertebral bodies anatomically aligned. ??Disc space heights still appear to be normally maintained. ??There are mild degenerative endplate spurs most notable at the L3-L4 level and also there are mild facet degenerative changes most evident at L4-L5 and L5-S1. ??There is no lumbar compression fracture. ??Clips in the right upper quadrant are compatible with cholecystectomy. IMPRESSION: 1. MINOR DEGENERATIVE CHANGES OF THE LUMBAR SPINE WITH NO COMPRESSION FRACTURE IDENTIFIED. 2. CHOLECYSTECTOMY CLIPS RIGHT UPPER QUADRANT. XR Cervical Spine Routine 4 View ??Acc#: ??[id number] DATE OF EXAM: ??May ??2012 HISTORY: Right-sided neck and shoulder pain. FINDINGS: AP, lateral, oblique and odontoid views were obtained. Cervical vertebral body alignment is anatomic. ??No fracture or dislocation is seen. ??There are small degenerative endplate spurs most notable at the C5-C6 and C6-C7 levels. ??On the oblique images, there is very mild osteophyte encroachment into the C5-C6 neural foramen on the right and minimally into the C5-C6 and C6-C7 neural foramen on the left. C1-C2 articulation is normal on the open mouth view. COMPRESSION: MINOR DEGENERATIVE CHANGES OF THE CERVICAL SPINE WITH NO FRACTURE OR DISLOCATION IDENTIFIED. XR Thoracic Spine Routine [id number] ??Acc#: ??[id number] DATE OF EXAM: ??May ??2012 HISTORY: Thoracic pain. ??Lifting a lot at work. FINDINGS: AP and lateral views of the thoracic spine obtained. ??On AP radiograph there is very slight tilt toward the left side. ??There is no paraspinal widening. ??There is no thoracic compression fracture. ??Minimal degenerative endplate spurs are noted in the mid and lower thoracic region. CONCLUSION: MINIMAL DEGENERATIVE CHANGES OF THORACIC SPINE WITH NO COMPRESSION FRACTURE IDENTIFIED. Interpreting Physician: ??JIGNESH ROJAS M.D. ??Read on: ??May ??3 2012 ??6:11A Transcribed by: ??VLR ??On: May ??3 2012 ??9:55A Approved Electronically by: ??JIGNESH ROJAS M.D. ??on: ??May ??2012 10:57A Ordering DR: NOA BEARD Attending DR: DR NADIR SHEA Procedure Note Provider, MD Gaston - 09/28/2016 XR Lumbar Spine Routine [id number] Acc#: [id number] DATE OF EXAM: Sep 28 2012 CLINICAL HISTORY: Lumbar pain. Lifting a lot at work. RESULT: AP, lateral and oblique images of the lumbar spine obtained. There arefive lumbar type vertebral bodies anatomically aligned. Disc spaceheights still appear to be normally maintained. There are milddegenerative endplate spurs most notable at the L3-L4 level and also thereare mild facet degenerative changes most evident at L4-L5 and L5-S1.There is no lumbar compression fracture. Clips in the right upperquadrant are compatible with cholecystectomy. IMPRESSION: 1. MINOR DEGENERATIVE CHANGES OF THE LUMBAR SPINE WITH NO COMPRESSIONFRACTURE IDENTIFIED. 2. CHOLECYSTECTOMY CLIPS RIGHT UPPER QUADRANT. XR Cervical Spine Routine 4 View Acc#: [id number] DATE OF EXAM: Sep 28 2012 HISTORY: Right-sided neck and shoulder pain. FINDINGS: AP, lateral, oblique and odontoid views were obtained. Cervical vertebralbody alignment is anatomic. No fracture or dislocation is seen. Thereare small degenerative endplate spurs most notable at the C5-C6 and C6-C7elnjca. On the oblique images, there is very mild osteophyte encroachmentinto the C5-C6 neural foramen on the right and minimally into the C5-C6and C6-C7 neural foramen on the left. C1- C2 articulation is normal on theopen mouth view. COMPRESSION: MINOR DEGENERATIVE CHANGES OF THE CERVICAL SPINE WITH NO FRACTURE ORDISLOCATION IDENTIFIED. XR Thoracic Spine Routine [id number] Acc#: [id number] DATE OF EXAM: Sep 28 2012 HISTORY: Thoracic pain. Lifting a lot at work. FINDINGS: AP and lateral views of the thoracic spine obtained. On AP radiographthere is very slight tilt toward the left side. There is no paraspinalwidening. There is no thoracic compression fracture. Minimaldegenerative endplate spurs are noted in the mid and lower thoracicregion. CONCLUSION: MINIMAL DEGENERATIVE CHANGES OF THORACIC SPINE WITH NO COMPRESSIONFRACTURE IDENTIFIED. Interpreting Physician: JIGNESH ROJAS M.D. Read on: Sep 29 2012 6:11A Transcribed by: LUIS On: Sep 29 2012 9:55A Approved Electronically by: JIGNESH ROJAS M.D. on: Sep 29 2012 10:57A Ordering DR: NOA BEARD Attending DR: DR NADIR SHEA us Historical Provider MD DAVID XR PROCEDURES Final R esult * XR Spine Thoracic 3 View (09/28/2012 10:26 PM CDT) Anatomical Region Laterality Modality Spine N/A Radiographic Esha ging 09/28/2012 10:2 6 PM CDT Narrative 09/29/2012 10:57 AM CDT XR Lumbar Spine Routine ??[id number] ??Acc#: ??[id number] DATE OF EXAM: ??May ??2012 CLINICAL HISTORY: Lumbar pain. ??Lifting a lot at work. RESULT: AP, lateral and oblique images of the lumbar spine obtained. ??There are five lumbar type vertebral bodies anatomically aligned. ??Disc space heights still appear to be normally maintained. ??There are mild degenerative endplate spurs most notable at the L3-L4 level and also there are mild facet degenerative changes most evident at L4-L5 and L5-S1. ??There is no lumbar compression fracture. ??Clips in the right upper quadrant are compatible with cholecystectomy. IMPRESSION: 1. MINOR DEGENERATIVE CHANGES OF THE LUMBAR SPINE WITH NO COMPRESSION FRACTURE IDENTIFIED. 2. CHOLECYSTECTOMY CLIPS RIGHT UPPER QUADRANT. XR Cervical Spine Routine 4 View ??Acc#: ??[id number] DATE OF EXAM: ??May ??2012 HISTORY: Right-sided neck and shoulder pain. FINDINGS: AP, lateral, oblique and odontoid views were obtained. Cervical vertebral body alignment is anatomic. ??No fracture or dislocation is seen. ??There are small degenerative endplate spurs most notable at the C5-C6 and C6-C7 levels. ??On the oblique images, there is very mild osteophyte encroachment into the C5-C6 neural foramen on the right and minimally into the C5-C6 and C6-C7 neural foramen on the left. C1-C2 articulation is normal on the open mouth view. COMPRESSION: MINOR DEGENERATIVE CHANGES OF THE CERVICAL SPINE WITH NO FRACTURE OR DISLOCATION IDENTIFIED. XR Thoracic Spine Routine [id number] ??Acc#: ??[id number] DATE OF EXAM: ??May ??2012 HISTORY: Thoracic pain. ??Lifting a lot at work. FINDINGS: AP and lateral views of the thoracic spine obtained. ??On AP radiograph there is very slight tilt toward the left side. ??There is no paraspinal widening. ??There is no thoracic compression fracture. ??Minimal degenerative endplate spurs are noted in the mid and lower thoracic region. CONCLUSION: MINIMAL DEGENERATIVE CHANGES OF THORACIC SPINE WITH NO COMPRESSION FRACTURE IDENTIFIED. Interpreting Physician: ??JIGNESH ROJAS M.D. ??Read on: ??May ??3 2012 ??6:11A Transcribed by: ??VLR ??On: September ??3 2012 ??9:55A Approved Electronically by: ??JIGNESH ROJAS M.D. ??on: ??May ??2012 10:57A Ordering DR: NOA BEARD Attending DR: DR NADIR SHEA Procedure Note Provider, MD Gaston - 09/28/2016 XR Lumbar Spine Routine [id number] Acc#: [id number] DATE OF EXAM: Sep 28 2012 CLINICAL HISTORY: Lumbar pain. Lifting a lot at work. RESULT: AP, lateral and oblique images of the lumbar spine obtained. There arefive lumbar type vertebral bodies anatomically aligned. Disc spaceheights still appear to be normally maintained. There are milddegenerative endplate spurs most notable at the L3-L4 level and also thereare mild facet degenerative changes most evident at L4-L5 and L5-S1.There is no lumbar compression fracture. Clips in the right upperquadrant are compatible with cholecystectomy. IMPRESSION: 1. MINOR DEGENERATIVE CHANGES OF THE LUMBAR SPINE WITH NO COMPRESSIONFRACTURE IDENTIFIED. 2. CHOLECYSTECTOMY CLIPS RIGHT UPPER QUADRANT. XR Cervical Spine Routine 4 View Acc#: [id number] DATE OF EXAM: Sep 28 2012 HISTORY: Right-sided neck and shoulder pain. FINDINGS: AP, lateral, oblique and odontoid views were obtained. Cervical vertebralbody alignment is anatomic. No fracture or dislocation is seen. Thereare small degenerative endplate spurs most notable at the C5-C6 and C6-P1joozap. On the oblique images, there is very mild osteophyte encroachmentinto the C5-C6 neural foramen on the right and minimally into the C5-C6and C6-C7 neural foramen on the left. C1- C2 articulation is normal on theopen mouth view. COMPRESSION: MINOR DEGENERATIVE CHANGES OF THE CERVICAL SPINE WITH NO FRACTURE ORDISLOCATION IDENTIFIED. XR Thoracic Spine Routine [id number] Acc#: [id number] DATE OF EXAM: Sep 28 2012 HISTORY: Thoracic pain. Lifting a lot at work. FINDINGS: AP and lateral views of the thoracic spine obtained. On AP radiographthere is very slight tilt toward the left side. There is no paraspinalwidening. There is no thoracic compression fracture. Minimaldegenerative endplate spurs are noted in the mid and lower thoracicregion. CONCLUSION: MINIMAL DEGENERATIVE CHANGES OF THORACIC SPINE WITH NO COMPRESSIONFRACTURE IDENTIFIED. Interpreting Physician: JIGNESH ROJAS M.D. Read on: Sep 29 2012 6:11A Transcribed by: LUIS On: Sep 29 2012 9:55A Approved Electronically by: JIGNESH ROJAS M.D. on: Sep 29 2012 10:57A Ordering DR: NOA BEARD Attending DR: DR NADIR SHEA us Historical Provider MD DAVID XR PROCEDURES Final R esult documented in this encounter Visit Diagnoses Diagnosis Backache Unspecified backache Migraine Migraine, unspecified, without mention of intractable migraine without mention of status migrainosus documented in this encounter Care Teams Tram Inspector Relationship Specialty Start Date End Date Nadir Shea MD [address] [place] [id number] PCP - General 11/24/11 09/14/17 documented as of this encounter
--- OUTSIDE RECORDS SUMMARY | 2024-06-12 04:24 | XMS_ITS | Encounter Summary ---
Author Organization [facility] Healthcare Address [address] [place] [address] Care Team Providers Care [employer] Name Role Phone Kaveh Loza MD Primary Care Provider [phone] Reason for Visit * Reason Comments Fever Cough Encounter Details Date Type Department Care Team (Late st Contact Info) Description 09/15/2017 8:58 PM CDT - 09/17/2017 3:11 PM CDT Emergency [facility] [address] [place] [address] Christiano Mai MD [address] [facility] [address] [place] [address] Starr Nuñez MD [address] [place] [address] [place] [address] Kieran Abdullahi MD [address] [facility] [place] [address] Community acquired pneumonia of left lower lobe of lung (CMS/HCC) (Primary Dx); SOB (shortness of breath); Cough Discharge Disposition: Discharge to home or self care Social History Tobacco Use Types Packs/Day Years Used Date Smoking Tobacco: Former Cigarettes 1 5 Smokeless Tobacco: Never Alcohol Use Standard Drinks/Week Comments No 0 (1 standard drink = 0.6 oz pur e alcohol) Comments No Sex and Gender Information Value Date Recorded Sex Assigned at Not on file 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 Gender Identity Not on file Sexual Orientation Not on file documented as of this encounter Last Filed Vital Signs Vital Sign Reading Time Taken Comments Blood Pressure 107/59 09/17/2017 7:29 AM CDT Pulse 74 09/17/2017 7:29 AM CDT Temperature 36.2 ??C (97.2 ??F) 09/17/2017 7:29 AM CD T Respiratory Rate 20 09/17/2017 7:29 AM CDT Oxygen Saturation 97% 09/17/2017 8:03 AM CDT Inhaled Oxygen Concentration - - Weight 82.5 kg (181 lb 14.1 oz) 09/16/2017 2:31 AM CDT Height 162.6 cm (5' 4 ) 09/16/2017 2:31 AM CDT Body Mass Index 31.22 09/16/2017 2:31 AM CDT documented in this encounter Discharge Summaries * Kieran Abdullahi MD - 09/17/2017 12:59 PM CDT Inpatient Discharge Summary BRIEF OVERVIEW Admitting Provider: Starr Nuñez MD Discharge Provider: Kieran Abdullahi MD Primary Care Physician at Discharge: Kaveh Loza MD [phone] Admission Date: 09/15/2017 Discharge Date: 09/17/2017 Primary Discharge Diagnosis 1. Sepsis due to left lower lobe pneumonia-most likely due to strep pneumonia/atypical is also possible 2. Hypotension-resolved 3. Normocytic anemia (dilutional) Secondary Discharge Diagnosis None Discharge Disposition patient is being discharged home with self-care Code Status at Discharge: Full code Active Issues Requiring Follow-up Patient's hemoglobin today is 11.1 down from 14 on presentation. Patient's baseline hemoglobin 13-14. There is no active bleeding. Most likely drop in hemoglobin is dilutional because all blood counts are low. Patient needs to repeat CBC after 5 days. I will also give prescription for routine iron study, vitamin B12 level, folic acid level and stool FOBT. Patient needs to follow up with her primary care physician for further management. Patient needs to take p.o. cefdinir and azithromycin for 10 more days. Patient is also advised to take lactobacilli to prevent antibiotic related diarrhea. Patient needs to repeat chest x-ray after 3-4 weeks to make sure pneumonia has resolved. Patient states her blood pressure usually runs low. According to patient her baseline blood pressure is 90/60. Patient is given prescription for blood pressure monitor. Patient is educated to check her blood pressure 3 times a day and keep records of home blood pressure reading and follow up with her primary care physician within 1 week. Outpatient Follow-Up 1. Primary care physician Test Results Pending at Discharge Final blood culture results from 09/15/2017-prelim results is negative. Final nasal MRSA resolved, prelim result is negative. DETAILS OF HOSPITAL STAY Presenting Problem/History of Present Illness 52-year-old pleasant female with past medical history of cholecystectomy, x3, tonsillectomy, left leg surgery came in for productive cough, shortness of breath and pleuritic chestpain for 6 days prior to presentation. Patient also reported fever 102.6 at home prior to presentati on. Patient was admitted for sepsis due to left lower lobe pneumonia. Hospital Course 1. Sepsis due to left lower lobe pneumonia Sepsis resolved. Pneumonia is community-acquired and most likely due to strep pneumonia/atypical isalso possible. Patient is afebrile. WBC is normal. Patient is feeling better. Upon admission chest x-ray showed left lower lobe pneumonia. Patient was treated with IV Rocephin and azithromycin. Rapidflu test negative. Blood culture from 09/15/2017 prelim negative. Nasal MRSA prelim negative. D-dimer was less than 150 which ruled out venous thromboembolism. Patient is being discharged on 10 more days of p.o. cefdinir and azithromycin. I will also prescribe Mucinex for 10 days for symptomatic cough relief. Patient needs to repeat chest x-ray after 3-4 weeks to make sure pneumonia has resolved. 2. Hypotension In emergency room patient's blood pressure was 91/54. Patient was started on IV fluid. Currently patient's blood pressure is better. However patient states her baseline blood pressure is always low.According to patient her baseline blood pressure is 90/60. On admission serum lactate was 1.3. Patient is given prescription for blood pressure monitor and patient is educated to check her blood pressure 3 times a day and keep records of home blood pressure reading and follow up with her primary care physician within 1 week. 3. Normocytic anemia Patient's hemoglobin today is 11.1 down from 14 on presentation. Patient's baseline hemoglobin 13-14. There is no active bleeding. Most likely drop in hemoglobin is dilutional because all blood counts are low. Patient needs to repeat CBC after 5 days. I will also give prescription for routine iron study, vitamin B12 level, folic acid level and stool FOBT. Patient needs to follow up with her primary care physician for further management. Operative Procedures Performed None Treatments: None Consults: None Procedures: None Radiology: Xr Chest Pa Lateral 2 Vw ?? Result Date: 09/15/2017 Narrative: XR CHEST PA LATERAL 2 VIEWS HISTORY: Shortness of breath. Cough and fever. COMPARISON: 09/04/2015 FINDINGS: PA frontal and lateral projections are obtained. Patchy infiltrate is present inthe left lower lobe. The right lung is clear. The heart size and pulmonary vascularity are normal. ?? Impression: LEFT LOWER LOBE PNEUMONIA. Electronically signed by: Fredrick Galvez M.D. Today's Lab: Recent Results (from the past 24 hour(s)) CBC with auto differential Collection Time: 09/17/17 4:41 AM Result Value Ref Range WBC 7.6 3.8 - 9.9 K/cumm RBC 3.80 (L) 3.90 - 5.20 M/cumm Hgb 11.1 (L) 11.9 - 15.5 g/dL Hct 33.2 (L) 35.6 - 45.5 % MCV 87.4 81.3 - 96.4 fL MCH 29.2 27.1 - 33.3 pg MCHC 33.4 32.3 - 35.7 g/dL RDW CV 13.1 11.1 - 14.9 % RDW SD 42.2 35.7 - 48.1 fL Platelets 161 150 - 400 K/cumm MPV 8.7 (L) 9.1 - 12.3 fL NRBC Abs 0.00 0.00 - 0.01 K/cumm Basic metabolic panel Collection Time: 09/17/17 4:41 AM Result Value Ref Range Sodium 144 135 - 145 mmol/L Potassium 4.2 3.3 - 4.9 mmol/L Chloride 110 97 - 110 mmol/L CO2 23 22 - 32 mmol/L BUN 6 (L) 8 - 25 mg/dL Glucose 103 70 - 199 mg/dL Creatinine 0.70 0.60 - 1.10 mg/dL Calcium 8.6 8.5 - 10.3 mg/dL Anion Gap 11 2 - 15 mmol/L Magnesium Collection Time: 09/17/17 4:41 AM Result Value Ref Range Magnesium 2.1 1.6 - 2.4 mg/dL Phosphorus Collection Time: 09/17/17 4:41 AM Result Value Ref Range Phosphorus, pl 3.5 2.3 - 4.5 mg/dL Differential, auto Collection Time: 09/17/17 4:41 AM Result Value Ref Range Neutrophil absolute 4.9 1.7 - 6.5 K/cumm Immature granulocyte absolute 0.0 0.0 - 0.1 K/cumm Lymphocytes absolute 1.9 0.8 - 3.3 K/cumm Monocyte absolute 0.5 0.2 - 0.8 K/cumm Eosinophils absolute 0.2 0.0 - 0.5 K/cumm Basophils, abs 0.0 0.0 - 0.1 K/cumm Neutrophils 64.5 % Immature granulocytes 0.5 % Lymphocytes 25.2 % Monocytes 6.6 % Eosinophils 2.8 % Basophils 0.4 % eGFR Collection Time: 09/17/17 4:41 AM Result Value Ref Range GFR >60 mL/min/1.73 m2 Discharge medication Albuterol inhaler Azithromycin 500 mg p.o. daily for 10 days Cefdinir 300 mg p.o. twice a day for 10 days Mucinex 1 tablet twice a day for 10 days. Lactobacillus acidophilus 1 capsule twice a day for 10 days. Discharge Instruction Activity Instructions Discharge activity: Resume normal activity Other Instructions Call provider for: If you have chest pain, shortness of breath, palpitation, dizziness, weakness, paresthesia, headache, confusion, high-grade fever, fall, loss of consciousness, abdominal pain, intractable nausea/vomiting, intractable diarrhea, black stool, dark stool, fresh blood in stool immediately go to emergency room. Call provider for: Temperature -Temperature greater than 101 degrees F Call provider for: difficulty breathing or chest pain Call provider for: extreme fatigue Call provider for: hives Call provider for: persistent dizziness or light-headedness Call provider for: persistent nausea or vomiting Call provider for: severe uncontrolled pain Call provider for: headache, visual disturbances, weakness and speech changes Special Instructions Patient's hemoglobin today is 11.1 down from 14 on presentation. Patient's baseline hemoglobin 13-14. There is no active bleeding. Most likely drop in hemoglobin is dilutional because all blood counts are low. Patient needs to repeat CBC on 09/21/2017. I will also give prescription for routine iron study, vitamin B12 level, folic acid level and stool FOBT. Patient needs to follow up with her primary care physician for further management. ?? Patient needs to take p.o. cefdinir and azithromycin for 10 more days. Patient is also advised to take lactobacilli to prevent antibiotic related diarrhea. Patient needs to repeat chest x-ray after 3-4 weeks to make sure pneumonia has resolved. ?? Patient states her blood pressure usually runs low. According to patient her baseline blood pressure is 90/60. Patient is given prescription for blood pressure monitor. Patient is educated to check her blood pressure 3 times a day and keep records of home blood pressure reading and follow up with her primary care physician within 1 week. Physical Exam at Discharge Discharge Condition: Stable Pulse: 74 Resp: 20 BP: 107/59 Temp: 36.2 ??C (97.2 ??F) Weight: 82.5 kg (181 lb 14.1 oz) Patient is lying in the bed. Patient is afebrile. Patient denies any chest pain or shortness of breath. Patient states her cough is much better compared to admission. Patient blood pressure is better. Patient is educated to check her blood pressure at home as mentioned above. Physical exam: Patient seen and examined Not in acute distress HEENT: AT/NC, Neck supple Heart: S1, S2, RRR Lung: CTA bilateral Abdomen: S, NT, ND, BS+ Neuro: AAO times 3, no focal deficit Ext: No gross lower extremity edema, no calf tenderness Time spent for discharge: 35 minutes Kieran Abdullahi MD documented in this encounter Discharge Instructions * Discharge Instructions* Christiano Mai MD - 09/16/2017 12:44 AM CDT YOU HAVE PNEUMONIA YOU ARE BEING SENT HOME ON ANTIBIOTICS, TAKE THEM DIRECTED USE THE ALBUTEROL INHALER EVERY 4 HOURS. COME BACK TO THE ER IF YOU GET WORSE. * Discharge Instr - Other Orders* Linda Glez, ASHA - 09/17/2017 1:48 PM CDT If you have any questions or concerns please call us back at [phone]. We would be more than happy to help answers any questions you have. * Attachments The following attachments cannot be sent through Care Everywhere. * Adult, Pneumonia (Vietnamese) * Albuterol (By mouth) (Vietnamese) * Guaifenesin (By mouth) (Vietnamese) * Probiotic (By mouth) (Vietnamese) * Azithromycin (By mouth) (Vietnamese) * Cefdinir (By mouth) (Vietnamese) documented in this encounter Medications at Time [...] for 10 days. 20 each 09/17/2017 8 documented as of this encounter Ordered Prescriptions Prescription Sig Dispense Quantity Refills Last Filled Start Date End Date albuterol HFA (PROVENTIL HFA,VENTOLIN HFA) 90 mcg/actuation inhaler Inhale 2 puffs every 4 (four) hours as needed for wheezing or shortness of breath. 1 Inhaler 09/16/2017 Lactobacillus acidophilus capsule Take 1 capsule by mouth 2 (two) times a day for 10 days. 20 each 09/17/2017 8 azithromycin (ZITHROMAX) 500 mg tabletIndications: CAP Take 1 tablet (500 mg total) by mouth daily for 10 days. 10 tablet 09/17/2017 8 cefdinir (OMNICEF) 300 mg capsuleIndications :CAP Take 1 capsule (300 mg total) by mouth 2 (two) times a day for 10 days. 20 capsule 09/17/2017 8 guaiFENesin-dextro methorphan ER (MUCINEX DM) 600-30 mg tablet extended release 12 hrIndications:Coug h Take 1 tablet by mouth 2 (two) times a day for 10 days. 20 tablet 09/17/2017 8 azithromycin (ZITHROMAX) 250 mg tabletIndications: Upper Respiratory/HEENT Infection Take 2 tablets the first day, then 1 tablet daily for 4 days 6 tablet 09/16/2017 8 documented in this encounter Discharge Disposition Disposition Code Departure Means Destination Discharge to home or self care documented in this encounter Progress Notes * Manuela Santamaria RD - 09/16/2017 12:[address] INITIAL ASSESSMENT HT;5'4: WT 181 LBS IBW;120+-10% 20 SARAH, NO BREAKDOWN NOTED. LABS;NA(09/15). ZITHROMAX, ZOFRAN, ROCEPHIN, LOVENOX. PT IS 151% IBW, 31.22 BMI, GRADE I OBESITY. INTAKE 25% X 1 MEAL ON REGULAR DIET. POTENTIAL FOR INADEQUATE INTAKE. MEDIUM NUTRITIONAL RISK. FOLLOW INTAKE, LABS, SKIN. * Mannie Gutierrez, [facility] - 09/16/2017 8:29 AM CDT An order to initiate electrolyte repletion by pharmacy has been received from Dr. Abdullahi. IV (or PO repletion for potassium, when tolerating oral) will be ordered by the pharmacist when levels fall below the desired range as follows: ?? If potassium level is 3.5 or less, give 40mEq potassium chloride IVPB, or oral (per NG tube, when applicable). ?? If magnesium level is 1.7 or less, give 2 grams magnesium sulfate IVPB over 2 hours. ?? If phosphorus level is 2.2 or less, and potassium and sodium are in normal range, give sodium phosphate 30 millimols IVPB. ?? If phosphorous level is 2.2 or less, and potassium replacement is also needed, give potassium phosphate 30 millimols IVPB. ?? If phosphorous level is 2.2 or less, and potassium is in normal range, and sodium is 145 or greater, give potassium phosphate 20 millimols IVPB. documented in this encounter H&P Notes * Kieran Abdullahi MD - 09/16/2017 6:30 AM CDT General Medicine History and Physical Date Of Service: 09/16/2017 Primary Care Physician: Kaveh Loza [phone] SUBJECTIVE Patient is a 52 y.o. female with chief complaint of productive cough/shortness of breath/pleuritic chest pain.. HPI: 52-year-old pleasant female with past medical history as mentioned came in for productivecough, shortness of breath, pleuritic chest pain for 6 days prior to presentation. On day of presentation patient states her productive cough and shortness of breath was significantly worse and she spiked fever of 102.6 so she came to emergency room. In emergency room patient found to have left lower lobe pneumonia. Patient was admitted for sepsis due to left lower lobe pneumonia. Emergency room physician wanted to discharge patient on p.o. antibiotic but her blood pressure was low 91/54 in emergency room so patient was admitted for IV fluid and observation. According to patient her blood pressure usually runs low. Patient's baseline blood pressure 90/60 as per patient. PMH None PSH Cholecystectomy, x3, tonsillectomy, left leg surgery SH Patient denies smoking, alcohol, recreational drug use. Patient lives at home. Patient ambulates independently. No prescriptions prior to admission. Allergies Allergen Reactions ??? Iodine Anaphylaxis ??? Sulfa (Sulfonamide Antibiotics) Anaphylaxis ??? Ciprofloxacin Hives ??? Hydromorphone Hives ??? Morphine Hives ??? Sulfanilamide Hives Reaction: Hives, ??? Augmentin [Amoxicillin-Pot Clavulanate] Other (See comments) Patient states it causes her to have period like bleeding Family History Problem Relation Age of Onset ??? Asthma Brother Asthma; ??? Diabetes Brother Diabetes mellitus; ??? Asthma Mother Asthma; ??? Diabetes Maternal Grandfather Diabetes mellitus; ??? Diabetes Maternal Grandmother Diabetes mellitus; ??? Breast cancer Maternal Grandmother Cancer, breast; ??? Lung cancer Father Cancer, lung; Review of Systems Positive for Productive cough with greenish sputum, pleuritic chest pain, shortness of breath Patient denies any urinary symptoms Patient denies Headache, Blurry vision, Fever, Abdominal Pain, Nausea, Vomiting, Diarrhea, Urinary Symptoms, Dizziness, Weakness, Paresthesias, Loss of conciousness OBJECTIVE Vitals: Arrival Vitals Temp 09/15/172106 (!) 38.7 ??C (101.7 ??F) Pulse 09/15/17 210 115 Resp 09/15/172106 18 BP 09/15/172106 130/84 SpO2 09/15/172106 92 % Temp src 09/15/172106 Temporal Heart Rate Source 09/15/17 2300 Pulse Oximetry Patient Position 09/16/17 0231 Lying BP Location 09/16/17 0231 Right arm FiO2 (%) -- 24hr Min/Max: Temp Min: 37.2 ??C (99 ??F) Max: 38.7 ??C (101.7 ??F) Pulse Min: 94 Max: 115 BP Min: 91/54 Max: 130/84 Resp Min: 12 Max: 20 SpO2 Min: 92 % Max: 97 % Most Recent : Vitals: 09/16/17 0231 BP: 114/65 Pulse: 96 Resp: 20 Temp: 37.3 ??C (99.2 ??F) SpO2: 97% No intake/output data recorded. I/O this shift: In: 2295.8 [P.O.:150; I.V.:345.8; IV Piggyback:1800] Out: - Physical exam: Patient seen and examined Not in acute distress HEENT: AT/NC, Neck supple Heart: S1, S2, RRR Lung: CTA bilateral Abdomen: S, NT, ND, BS+ Neuro: AAO times 3, no focal deficit Ext: No gross lower extremity edema, no calf tenderness. Lab/Radiology/Diagnostic Review: Recent Results (from the past 24 hour(s)) CBC with auto differential Collection Time: 09/15/17 9:39 PM Result Value Ref Range WBC 14.0 (H) 3.8 - 9.9 K/cumm RBC 4.66 3.90 - 5.20 M/cumm Hgb 14.0 11.9 - 15.5 g/dL Hct 40.3 35.6 - 45.5 % MCV 86.5 81.3 - 96.4 fL MCH 30.0 27.1 - 33.3 pg MCHC 34.7 32.3 - 35.7 g/dL RDW CV 12.8 11.1 - 14.9 % RDW SD 40.6 35.7 - 48.1 fL Platelets 208 150 - 400 K/cumm MPV 8.5 (L) 9.1 - 12.3 fL NRBC Abs 0.00 0.00 - 0.01 K/cumm Troponin T Collection Time: 09/15/17 9:39 PM Result Value Ref Range Troponin T <0.01 0.00 - 0.06 ng/mL Comprehensive metabolic panel Collection Time: 09/15/17 9:39 PM Result Value Ref Range Sodium 135 135 - 145 mmol/L Potassium 3.9 3.3 - 4.9 mmol/L CO2 25 22 - 32 mmol/L BUN 12 8 - 25 mg/dL Glucose 112 70 - 199 mg/dL Creatinine 0.83 0.60 - 1.10 mg/dL Calcium 9.7 8.5 - 10.3 mg/dL Chloride 95 (L) 97 - 110 mmol/L Albumin 4.1 3.5 - 5.0 g/dL AST 28 10 - 45 Units/L ALT 30 7 - 45 Units/L Alk phos 68 40 - 130 Units/L Bilirubin 0.3 0.1 - 1.2 mg/dL Protein, pl 7.0 6.5 - 8.5 g/dL Anion Gap 15 2 - 15 mmol/L Lactate, whole blood Collection Time: 09/15/17 9:39 PM Result Value Ref Range Lactic acid, bld 1.3 0.5 - 2.2 mmol/L Differential, auto Collection Time: 09/15/17 9:39 PM Result Value Ref Range Neutrophil absolute 12.4 (H) 1.7 - 6.5 K/cumm Immature granulocyte absolute 0.0 0.0 - 0.1 K/cumm Lymphocytes absolute 0.8 0.8 - 3.3 K/cumm Monocyte absolute 0.6 0.2 - 0.8 K/cumm Eosinophils absolute 0.1 0.0 - 0.5 K/cumm Basophils, abs 0.0 0.0 - 0.1 K/cumm Neutrophils 89.0 % Immature granulocytes 0.2 % Lymphocytes 6.0 % Monocytes 4.3 % Eosinophils 0.4 % Basophils 0.1 % eGFR Collection Time: 09/15/17 9:39 PM Result Value Ref Range GFR >60 mL/min/1.73 m2 Influenza A/B antigens, rapid Collection Time: 09/15/17 10:31 PM Result Value Ref Range Flu A Negative Negative Flu B Negative Negative Xr Chest Pa Lateral 2 Vw Result Date: 09/15/2017 Narrative: XR CHEST PA LATERAL 2 VIEWS HISTORY: Shortness of breath. Cough and fever. COMPARISON: 09/04/2015 FINDINGS: PA frontal and lateral projections are obtained. Patchy infiltrate is present inthe left lower lobe. The right lung is clear. The heart size and pulmonary vascularity are normal. Impression: LEFT LOWER LOBE PNEUMONIA. Electronically signed by: Fredrick Galvez M.D. ASSESSMENT/PLAN 1. Sepsis due to left lower lobe pneumonia Most likely due to strep pneumonia. Atypical is also possible. Chest x-ray done in emergency room showed left lower lobe pneumonia Patient is febrile with T-max 101.7??. WBC 14. Rapid flu test negative. Blood culture from 09/15/2017-pending. Continue with IV Rocephin and azithromycin. Continue with IV fluid Check nasal MRSA. Patient is complaining of left-sided pleuritic chest pain most likely due to underlying pneumonia. Patient is also tachycardic, on EKG at sinus tachycardia. Tachycardia also can be explained by underlying sepsis due to pneumonia. Still it is better to rule out pulmonary embolism. Will check D-dimer. 2. Hypotension In emergency room patient's blood pressure was 91/54. Patient was started on IV fluid. Currently patient's blood pressure is 114/65. Patient states her blood pressure usually runs low. According to patient her baseline blood pressure 90/60. Serum lactate 1.3 Continue with IV fluid. Monitor blood pressure closely. Currently patient is asymptomatic. Patient denies any dizziness, lightheadedness. 3. DVT/GI prophylaxis Full code Estimated Length Of Stay: Less than 2 midnights documented in this encounter ED Notes * Christiano Mai MD - 09/16/2017 1:16 AM CDT HPI Chief Complaint Patient presents with ??? Fever ??? Cough HPI Patient History Patient Active Problem List Diagnosis Date Noted ??? Sepsis (CMS/HCC) 09/16/2017 ??? Community acquired pneumonia of left lower lobe of lung (CMS/HCC) 09/16/2017 ??? Hypotension 09/16/2017 ??? No pathologic [...] Lung cancer Father Cancer, lung; Social History Substance Use Topics ??? Smoking status: Former Smoker Packs/day: 1.00 Years: 5.00 ??? Smokeless tobacco: Never Used ??? Alcohol use No Social History Social History Narrative ??? No narrative on file Review of Systems Review of Systems Physical Exam ED Triage Vitals Temp Pulse Resp BP SpO2 09/15/17210609/15/17210609/15/17210609/15/17210609/15/172106 (!) 38.7 ??C (101.7 ??F) 115 18 130/84 92 % Temp src Heart Rate Source Patient Position BP Location FiO2 (%) 09/15/17210609/15/17 2300 -- -- -- Temporal Pulse Oximetry Physical Exam ED Course & MDM ED Course as of Sep 17 0514 TueSep 16, [address] Nuñez (hospitalist) discussing patient's case, including lab and radiology results. Also discussed plan to admit the patient. Dr. Nuñez accepts the patient for admission. [AW] Radha Sep 15, 2017 2201 Pre-hypertension/Hypertension: The patient has been informed that they may have pre-hypertension or Hypertension based on a blood pressure reading in the Emergency Department. I recommend that the patient call the primary care provider listed on their discharge instructions or a physician of their choice this week to arrange follow up for further evaluation of possible pre- hypertension or Hypertension. BP: 130/84 [AW] ED Course User Index [AW] Onur Costa [facility] Number of Diagnoses or Management Options Community acquired pneumonia of left lower lobe of lung (CMS/HCC): Cough: SOB (shortness of breath): Diagnosis management comments: 01:16: PT SEEMED WELL ENOUGH TO GO HOME. S/P 1 L IVFS AND IV CEFTRIAXONE. HR IMPROVED, FEVER IMPROVED. HOWEVER AT DC MAP DROPPED TO 59 AND SBP OF 91 . Amount and/or Complexity of Data Reviewed Clinical lab tests: ordered and reviewed Tests in the radiology section of CPT??: ordered and reviewed Tests in the medicine section of CPT??: ordered and reviewed Independent visualization of images, tracings, or specimens: yes Community acquired pneumonia of left lower lobe of lung (CMS/HCC) SOB (shortness of breath) Cough DISP: ADMIT CONDITION: STABLE Christiano Mai MD 09/17/17 0514 * Yesenia Gil RN - 09/16/2017 12:04 AM CDT 52 y.o. F presents to ED with c/o fever which began today and cough which has been getting increasingly worse over the past week. Pt denies any chest pain or difficulty breathing. No N/V/D. Yesenia Gil RN 09/16/17 0005 * Tapan Calvin RN - 09/15/2017 9:08 PM CDT Pt into ER with c/o fever, productive cough. 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 Last tylenol @ 2000 tonight documented in this encounter Miscellaneous Notes * Plan of Care - Summer Yu RN - 09/17/2017 3:09 PM CDT Goals: Clinical Goals for the Shift: free from injury, adequate pain contro, adequate rest, vitals, labs within normal limits, decreases in coughing, decrease in resp distress Summary: Discharge instructions and prescriptions gvine, voices understanding and pt. Is dischargedper w/c in stable condition, accompanied by family member * Plan of Care - Edie Reid RN - 09/17/2017 4:54 AM CDT Activity: ??? Ability to tolerate increased activity will improve Progressing Health Behavior: ??? Understanding of discharge needs will improve Progressing Lack of Knowledge: ??? Verbalization of understanding the information provided will improve Progressing Physical Regulation: ??? Ability to maintain a body temperature in the normal range will improve Progressing Respiratory: ??? Respiratory status will improve Progressing ??? Ability to maintain a clear airway will improve Progressing ??? Pain level will decrease Progressing Goals: Clinical Goals for the Shift: free from injury, adequate pain contro, adequate rest, vitals, labs within normal limits, decreases in coughing, decrease in resp distress Summary: Pt A&Ox 4, independent in room. IV fluids infusing as ordered. Pt given scheduled medications as ordered. Medicated with prn medication for pain in rib cage x 1. * Plan of Care - Chyna Martinez RN - 09/16/2017 6:25 PM CDT Activity: ??? Ability to tolerate increased activity will improve Progressing Health Behavior: ??? Understanding of discharge needs will improve Progressing Lack of Knowledge: ??? Verbalization of understanding the information provided will improve Progressing Physical Regulation: ??? Ability to maintain a body temperature in the normal range will improve Progressing Respiratory: ??? Respiratory status will improve Progressing ??? Ability to maintain a clear airway will improve Progressing ??? Pain level will decrease Progressing Goals: Clinical Goals for the Shift: Get patient settled to floor. Give meds as ordered. No falls/injury. Stable VS/labs. Summary: A&O, no c/o pain. Meds were given as scheduled. IVFs cont. @75ml/hr. Neb tx given as scheduled. Will continue to monitor telemetry. Call light within reach. Pt. encouraged to notify nurse when needing assistance. * Plan of Care - Nohelia Mercer RN - 09/16/2017 4:54 AM CDT Activity: ??? Ability to tolerate increased activity will improve Progressing Health Behavior: ??? Understanding of discharge needs will improve Progressing Lack of Knowledge: ??? Verbalization of understanding the information provided will improve Progressing Physical Regulation: ??? Ability to maintain a body temperature in the normal range will improve Progressing Respiratory: ??? Respiratory status will improve Progressing ??? Ability to maintain a clear airway will improve Progressing ??? Pain level will decrease Progressing Goals: Clinical Goals for the Shift: Get patient settled to floor. Give meds as ordered. No falls/injury. Stable VS/labs. Summary: Patient admitted this shift for PNA. A/Ox4. Room air. No complaints. Independent. IVF infusing. Will continue to monitor and medicate as needed and as ordered. * ED Procedure Note - Christiano Mai MD - 09/15/2017 11:06 PM CDT Associated Order(s): ECG 12-LEAD Procedure ECG 12 lead Date/Time: 09/15/2017 11:06 PM Performed by: CHRISTIANO MAI Authorized by: CHRISTIANO MAI Comments: SINUS TACHYCARDIA, RATE 115, QRS 90, QTC 379, NAD, NO ACUTE ISCHEMIA, ARRHYTHMIAS, NO CHANGE FROM PRIOR EKG FROM 07/17/2017. Christiano Mai MD 09/15/17 2310 documented in this encounter Plan of Treatment Not on file documented as of this encounter Procedures Procedure Name Priority Date/Time Associated Diagnosis Comments EGFR Routine 09/17/2017 4:41 AM CDT DIFFERENTIAL AUTO Routine 09/17/2017 4:4 1 AM CDT CBC WITH AUTO DIFFERENTIAL Routine 09/17/2017 4:41 AM CDT PHOSPHORUS Routine 09/17/2017 4:41 AM CDT MAGNESIUM Routine 09/17/2017 4:41 AM CDT BASIC METABOLIC PANEL Routine 09/17/2017 4:41 AM CDT DISCHARGE LABORATORY CUMULATIVE REPORT 09/17/2017 12:00 AM CDT D-DIMER, QUANTITATIVE Routine 09/16/2017 8:32 AM CDT TROPONIN T Routine 09/16/2017 8:32 AM CDT INFECTION PREVENTION MRSA ONLY (STAPHYLOCOCCUS AUREUS) CULTURE Routine 09/16/2017 6:58 AM CDT INFLUENZA A/B ANTIGENS, RAPID GEN LAB STAT 09/15/2017 10:31 PM CDT ECG 12-LEAD STAT 09/15/2017 10:13 PM CDT BLOOD CULTURE STAT 09/15/2017 9:41 PM CDT EGFR STAT 09/15/2017 9:39 PM CDT DIFFERENTIAL AUTO STAT 09/15/2017 9:3 9 PM CDT CBC WITH AUTO DIFFERENTIAL STAT 09/15/2017 9:39 PM CDT LACTATE, WHOLE BLOOD STAT 09/15/2017 9:39 PM CDT BLOOD CULTURE STAT 09/15/2017 9:39 PM CDT TROPONIN T STAT 09/15/2017 9:39 PM CDT COMPREHENSIVE METABOLIC PANEL STAT 09/15/2017 9:39 PM CDT XR CHEST PA LATERAL 2 VIEWS ED 09/15/2017 9:29 PM CDT documented in this encounter Results * eGFR (09/17/2017 4:41 AM CDT) [facility] eGFR >60 mL/min/1.7 3 m2 [facility] (DAGO) Comment: Interpretive Data Reference Interval Normal ?>/= 90 mL/min/1.73m2 Mildly decreased* ? 60 - 89 mL/min/1.73m2 Mildly to moderately decreased ?45 - 59 mL/min/1.73m2 Moderately to severely decreased ??30 - 44 mL/min/1.73m2 Severely decreased ?15 - 29 mL/min/1.73m2 Kidney Failure ?< 15 ??mL/min/1.73m2 *Relative to young adult level If -Honduran multiply value by 1.16. Estimated glomerular filtration rate is determined by the CKD-EPI equation recommended by the National Kidney Foundation (KDIGO 2012 Clinical Practice Guideline for the Evaluation and Management of Chronic Kidney Disease. Kidney Intnl Suppl May 2012;3:1). The CKD-EPI equation should not be used for patients with unstable renal function and has not been validated in children and those over 70. Current interpretive data was last reviewed 2015. Blood specimen (specimen) 09/17/2017 4:41 AM CDT 09/17/2017 4:45 AM CDT Narrative [facility] (DAGO) - 09/17/2017 6:04 AM CDT us Kieran Abdullahi MD LAB BLOOD ORDERABLES Fin al Result [facility] ([place]) 1 [facility] Department [place] [address] * Differential, auto (09/17/2017 4:41 AM CDT) Neutrophil abs 4.9 1.7 - 6.5 K/cumm [facility] ([place]) Imm gran abs 0.0 0.0 - 0.1 K/cumm [facility] ([place]) Lymphocyte abs 1.9 0.8 - 3.3 K/cumm [facility] ([place]) Monocyte abs 0.5 0.2 - 0.8 K/cumm [facility] ([place]) Eosinophil abs 0.2 0.0 - 0.5 K/cumm [facility] ([place]) Basophil abs 0.0 0.0 - 0.1 K/cumm [facility] ([place]) Neutrophil pct 64.5 % [facility] ([place]) Comment: Interpretive Data Percent cell count reference ranges are not reported, since discordance with absolute values may lead to misinterpretation of CBC data. Current Interpretive Data was last revised on 2017. Imm gran pct 0.5 % [facility] ([place]) Comment: Interpretive Data Percent cell count reference ranges are not reported, since discordance with absolute values may lead to misinterpretation of CBC data. Current Interpretive Data was last revised on 2017. Lymphocyte pct 25.2 % [facility] ([place]) Comment: Interpretive Data Percent cell count reference ranges are not reported, since discordance with absolute values may lead to misinterpretation of CBC data. Current Interpretive Data was last revised on 2017. Monocyte pct 6.6 % [facility] ([place]) Comment: Interpretive Data Percent cell count reference ranges are not reported, since discordance with absolute values may lead to misinterpretation of CBC data. Current Interpretive Data was last revised on 2017. Eosinophil pct 2.8 % [facility] ([place]) Comment: Interpretive Data Percent cell count reference ranges are not reported, since discordance with absolute values may lead to misinterpretation of CBC data. Current Interpretive Data was last revised on 2017. Basophil pct 0.4 % [facility] ([place]) Comment: Interpretive Data Percent cell count reference ranges are not reported, since discordance with absolute values may lead to misinterpretation of CBC data. Current Interpretive Data was last revised on 2017. Blood specimen (specimen) 09/17/2017 4:41 AM CDT 09/17/2017 4:44 AM CDT Narrative [facility] ([place]) - 09/17/2017 4:51 AM CDT us Kieran Abdullahi MD LAB BLOOD ORDERABLES Fin al Result [facility] ([place]) 1 [facility] [place] [address] * Phosphorus (09/17/2017 4:41 AM CDT) [facility] Phosphorus, pl 3.5 2.3 - 4.5 mg/dL [facility] ([place]) Blood specimen (specimen) 09/17/2017 4:41 AM CDT 09/17/2017 4:45 AM CDT Narrative [facility] ([place]) - 09/17/2017 6:04 AM CDT Kieran Abdullahi MD LAB BLOOD ORDERABLES Fin al Result Performing Organization Address [facility] Co de Phone Number [facility] (DAGO) 1 [facility] [place] [address] * Magnesium (09/17/2017 4:41 AM CDT) [facility] Magnesium 2.1 1.6 - 2.4 mg/dL [facility] ([place]) Blood specimen (specimen) 09/17/2017 4:41 AM CDT 09/17/2017 4:45 AM CDT Narrative [facility] ([place]) - 09/17/2017 6:04 AM CDT Kieran Abdullahi MD LAB BLOOD ORDERABLES Fin al Result Performing Organization Address City/[facility] Co de Phone Number [facility] ([place]) 1 [facility] [place] [address] * (ABNORMAL) Basic metabolic panel (09/17/2017 4:41 AM CDT) [facility] Sodium 144 135 - 145 mmol/L [facility] Potassium, pl 4.2 3.3 - 4.9 mmol/L [facility] ([place]) Chloride 110 97 - 110 mmol/L [facility] ([place]) CO2 23 22 - 32 mmol/L [facility] ([place]) BUN 6(L) 8 - 25 mg/dL [facility] ([place]) Glucose 103 70 - 199 mg/dL [facility] ([place]) Comment: Interpretive Data Fasting glucose >/= 126 mg/dl is diagnostic for diabetes. ?? Fasting is defined as no caloric intake for at least 8 hours. Fasting glucose between 100 mg/dl to 125 mg/dl is diagnostic of prediabetes. In a patient with classic symptoms of hyperglycemia or hyperglycemic crisis, a random glucose >/= 200 mg/dl is diagnostic for diabetes. In the absence of unequivocal hyperglycemia, results should be confirmed by repeat testing. The classification and Diagnosis of Diabetes Diabetes Care 2017;40 (Suppl. 1):S11. Current interpretive data was last revised 2017. Creatinine 0.70 0.60 - 1.10 mg/dL [facility] ([place]) Calcium 8.6 8.5 - 10.3 mg/dL [facility] ([place]) Anion gap 11 2 - 15 mmol/L [facility] ([place]) Blood specimen (specimen) 09/17/2017 4:41 AM CDT 09/17/2017 4:45 AM CDT Narrative [facility] - 09/17/2017 6:04 AM CDT us Kieran Abdullahi MD LAB BLOOD ORDERABLES Fin al Result [facility] 1 [facility] Department of Laboratories [place], [place] [id number] * (ABNORMAL) CBC with auto differential (09/17/2017 4:41 AM CDT) WBC 7.6 3.8 - 9.9 K/cumm [facility] ([place]) RBC 3.80(L) 3.90 - 5.20 M/cumm [facility] ([place]) Hgb 11.1(L) 11.9 - 15.5 g/dL [facility] ([place]) Hct 33.2(L) 35.6 - 45.5 % [facility] ([place]) MCV 87.4 81.3 - 96.4 fL [facility] ([place]) MCH 29.2 27.1 - 33.3 pg [facility] ([place]AG[place]) MCHC 33.4 32.3 - 35.7 g/dL [facility] ([place]AG[place]) RDW CV 13.1 11.1 - 14.9 % [facility] ([place]) RDW SD 42.2 35.7 - 48.1 fL [facility] ([place]AG[place]) Plt 161 150 - 400 K/cumm [facility] ([place]AG[place]) MPV 8.7(L) 9.1 - 12.3 fL [facility] ([place]AG[place]) NRBC abs 0.00 0.00 - 0.01 K/cumm [facility] ([place]AG[place]) Blood specimen (specimen) 09/17/2017 4:41 AM CDT 09/17/2017 4:44 AM CDT Narrative [facility] ([place]AG[place]) - 09/17/2017 4:51 AM CDT Kieran Abdullahi MD LAB BLOOD ORDERABLES Fin al Result [facility] ([place]) 1 [facility] Department [place] [address] * DISCHARGE LABORATORY CUMULATIVE REPORT (09/17/2017 12:00 AM CDT) Narrative 09/17/2017 12:00 AM CDT Ordered by an unspecified provider. [facility] Provider LAB BLOOD ORDERABLES Chiquita l Result * (ABNORMAL) D-dimer, quantitative (09/16/2017 8:32 AM CDT) D-dimer <150(L) 150 - 230 ng/mL D-DU [facility] (DAGO) Comment: Interpretive Data This D-dimer test is approved by the FDA to exclude suspected PE and DVT in outpatients when the result is <230 ng/mL in conjunction with a pre-test probability score of low or moderate using the Wells criteria. Current Interpretive Data was last revised on 2015. Blood specimen (specimen) 09/16/2017 8:32 AM CDT 09/16/2017 8:46 AM CDT Narrative [facility]US[facility] ([place]AGO) - 09/16/2017 9:29 AM CDT Kieran Abdullahi MD LAB BLOOD ORDERABLES Fin al Result Performing Organization Address [facility] de Phone Number [facility] (DAGO) 1 [place] [address] * Troponin T (09/16/2017 8:32 AM CDT) Troponin T <0.01 0.00 - 0.06 ng/mL [facility] (DAGO) Comment: Interpretive Data Troponin table: ? Negative ? 0.00-0.06 ng/ml ? Indeterminate ?0.07-0.10 ng/ml ? Consistent with Myocardial Injury ?Greater than 0.10 ng/ml ?? Current interpretive data was last revised on 2014 Blood specimen (specimen) 09/16/2017 8:32 AM CDT 09/16/2017 8:46 AM CDT Narrative [facility] (DAGO) - 09/16/2017 9:18 AM CDT Kieran Abdullahi MD LAB BLOOD ORDERABLES Fin al Result Performing Organization Address [facility] Co de Phone Number [facility] (DAGO) 1 [facility] [place] [address] * MRSA culture Nasal (09/16/2017 6:58 AM CDT) Report Final Report: Negative [facility] (DAGO) Comment:Testing performed by : [facility], [address] [facility], [place]., [address] Nasal 09/16/2017 6:58 AM CDT 09/16/2017 9:16 AM CDT Narrative [facility]US[facility] (DAGO) - 09/17/2017 12:19 PM CDT us Kieran Abdullahi MD LAB MICROBIOLOGY - GENER AL ORDERABLES Final Result Performing Organization Address City/[facility]/ZIP Co de Phone Number [facility] (REDDICK) 1 [facility] [place] [address] * Influenza A/B antigens, rapid (09/15/2017 10:31 PM CDT) Flu A Negative Negative [facility] (REDDICK) Comment: Interpretive Data The results of this procedure whether positive or negative are presumptive. Current interpretive data was last revised on 2014. Flu B Negative Negative [facility] ([place]) Nasopharyngeal 09/15/2017 10 :31 PM CDT 09/15/2017 10:35 PM CDT Narrative [facility]US[facility] (DAGO) - 09/15/2017 10:56 PM CDT us Christiano Mai MD LAB BODY FLUIDS AND STOOL S ORDERABLES Final Result Performing Organization Address [facility] Co de Phone Number [facility] ([place]) 1 [place] [address] * ECG 12 lead (09/15/2017 10:13 PM CDT) Patient age 52 years [facility] Interpretation Text SINUS TACHYCARDIABaseline artifactNO PREVIOUS TRACING [facility] Comment:Physician Interprete r Dr. Amari Bragg M.D. Ventricular Rate EKG/Min 115 /min [facility] P Wave Duration 125 ms [facility] QRS-Interval (MSEC) 90 ms [facility] NV-Interval (MSEC) 133 ms [facility] QT Interval 311 ms [facility] QTc 407 ms [facility] QTC Interval ms [facility] P Locust 26 deg [facility] QRS Locust 53 deg [facility] T Locust 34 deg [facility] 09/15/2017 10:1 3 PM CDT us Christiano Mai MD ECG ORDERABLES Final Res ult [facility] * Blood culture Blood (09/15/2017 9:41 PM CDT) Report Final Report: No growth [facility] (DAGO) Comment:Testing performed by : [place]., [address] Blood specimen (specimen) 09/15/2017 9:41 PM CDT 09/16/2017 12:26 AM CDT Narrative [facility] GUSMAN (DAGO) - 09/20/2017 7:01 AM CDT 1. Blood cultures are incubated for 5 days, and cultures are monitored continuously. ??The first negative report is issued within 24 hours of receipt in the laboratory. ??Positive cultures are called in accordance with the critical call policy. 2. The most important factor for detection microbes in the setting of blood stream infection is the volume of blood submitted for culture. ??For pediatric patients, the recommended volume of blood to collect is 1 mL of blood per year of patient age, up to 15 mL, per blood culture set. For adult patients, 20 mL of blood, divided equally between an aerobic and anaerobic blood culture bottle, is recommended for each blood culture set. ??Failure to collect an optimal blood volume can result in false negative blood cultures. 3. Bloodstream infection is more likely to be catheter related if the time to culture positivity of a blood culture drawn through the catheter is at least 2.5 hours faster than the time to positivity of a percutaneous culture of the same volume drawn at the same time, using the same media type. 4. Organism identification and/or antimicrobial susceptibly testing, if reported, [place] [address] 5. For blood cultures with gram-positive cocci, a rapid molecular test for organism identification may be performed using the [employer] Nanosphere Gram Positive Blood Culture Assay. The Nanosphere assay detects microbial DNA in positive blood culture broth via hybridization of target DNA to capture oligonucleotides on a microarray. This assay has been cleared by the [place] Food and Drug Administration and its performance characteristics have been verified by the [facility]. Interpretive data was last revised on October 11, 2016. Chritsiano Mai MD LAB MICROBIOLOGY - GENERA L ORDERABLES Final Result [facility] ([place]AGO) 1 [facility] Department [place] [address] * eGFR (09/15/2017 9:39 PM CDT) Pathologist [facility] eGFR >60 mL/min/1.7 3 m2 [facility] GUSMAN (DAGO) Comment: Interpretive Data Reference Interval Normal ?>/= 90 mL/min/1.73m2 Mildly decreased* ? 60 - 89 mL/min/1.73m2 Mildly to moderately decreased ?45 - 59 mL/min/1.73m2 Moderately to severely decreased ??30 - 44 mL/min/1.73m2 Severely decreased ?15 - 29 mL/min/1.73m2 Kidney Failure ?< 15 ??mL/min/1.73m2 *Relative to young adult level If -Honduran multiply value by 1.16. Estimated glomerular filtration rate is determined by the CKD-EPI equation recommended by the National Kidney Foundation (KDIGO 2012 Clinical Practice Guideline for the Evaluation and Management of Chronic Kidney Disease. Kidney Intnl Suppl May 2012;3:1). The CKD-EPI equation should not be used for patients with unstable renal function and has not been validated in children and those over 70. Current interpretive data was last reviewed 2015. Blood specimen (specimen) 09/15/2017 9:39 PM CDT 09/15/2017 9:46 PM CDT Narrative [facility] (DAGO) - 09/15/2017 10:32 PM CDT Rae Lea MD LAB BLOOD ORDERABLE S Final Result [facility] ([place]) 1 [facility] Department of Laboratories [place], [place] [id number] * (ABNORMAL) Differential, auto (09/15/2017 9:39 PM CDT) Neutrophil abs 12.4(H) 1.7 - 6.5 K/cumm [facility] ([place]) Imm gran abs 0.0 0.0 - 0.1 K/cumm [facility] ([place]) Lymphocyte abs 0.8 0.8 - 3.3 K/cumm [facility] ([place]) Monocyte abs 0.6 0.2 - 0.8 K/cumm [facility] ([place]) Eosinophil abs 0.1 0.0 - 0.5 K/cumm [facility] ([place]) Basophil abs 0.0 0.0 - 0.1 K/cumm [facility] ([place]) Neutrophil pct 89.0 % [facility] ([place]) Comment: Interpretive Data Percent cell count reference ranges are not reported, since discordance with absolute values may lead to misinterpretation of CBC data. Current Interpretive Data was last revised on 2017. Imm gran pct 0.2 % [facility] ([place]) Comment: Interpretive Data Percent cell count reference ranges are not reported, since discordance with absolute values may lead to misinterpretation of CBC data. Current Interpretive Data was last revised on 2017. Lymphocyte pct 6.0 % [facility] ([place]) Comment: Interpretive Data Percent cell count reference ranges are not reported, since discordance with absolute values may lead to misinterpretation of CBC data. Current Interpretive Data was last revised on 2017. Monocyte pct 4.3 % [facility] (DAOG) Comment: Interpretive Data Percent cell count reference ranges are not reported, since discordance with absolute values may lead to misinterpretation of CBC data. Current Interpretive Data was last revised on 2017. Eosinophil pct 0.4 % [facility] ([place]) Comment: Interpretive Data Percent cell count reference ranges are not reported, since discordance with absolute values may lead to misinterpretation of CBC data. Current Interpretive Data was last revised on 2017. Basophil pct 0.1 % [facility] ([place]) Comment: Interpretive Data Percent cell count reference ranges are not reported, since discordance with absolute values may lead to misinterpretation of CBC data. Current Interpretive Data was last revised on 2017. Blood specimen (specimen) 09/15/2017 9:39 PM CDT 09/15/2017 9:46 PM CDT Narrative [facility] ([place]) - 09/15/2017 9:49 PM CDT us Christiano Mai MD LAB BLOOD ORDERABLES Chiquita l Result [facility] ([place]AG[place]) [address] [place] [address] Department [place] [address] * Lactate, whole blood (09/15/2017 9:39 PM CDT) Pathologist [facility] Lactate, bld 1.3 0.5 - 2.2 mmol/L [facility] ([place]) Blood specimen (specimen) 09/15/2017 9:39 PM CDT 09/15/2017 9:46 PM CDT Narrative [facility] ([place]) - 09/15/2017 10:01 PM CDT us Christiano Mai MD LAB BLOOD ORDERABLES Chiquita l Result [facility] (REDDICK) [address] [place] [address] [place] [address] * (ABNORMAL) Comprehensive metabolic panel (09/15/2017 9:39 PM CDT) Sodium 135 135 - 145 mmol/L [facility] ([place]) Potassium, pl 3.9 3.3 - 4.9 mmol/L [facility] ([place]) CO2 25 22 - 32 mmol/L [facility] ([place]) BUN 12 8 - 25 mg/dL [facility] ([place]) Glucose 112 70 - 199 mg/dL [facility] ([place]) Comment: Interpretive Data Fasting glucose >/= 126 mg/dl is diagnostic for diabetes. ?? Fasting is defined as no caloric intake for at least 8 hours. Fasting glucose between 100 mg/dl to 125 mg/dl is diagnostic of prediabetes. In a patient with classic symptoms of hyperglycemia or hyperglycemic crisis, a random glucose >/= 200 mg/dl is diagnostic for diabetes. In the absence of unequivocal hyperglycemia, results should be confirmed by repeat testing. The classification and Diagnosis of Diabetes Diabetes Care 2017;40 (Suppl. 1):S11. Current interpretive data was last revised 2017. Creatinine 0.83 0.60 - 1.10 mg/dL [facility] ([place]) Calcium 9.7 8.5 - 10.3 mg/dL [facility] ([place]) Chloride 95(L) 97 - 110 mmol/L [facility] ([place]) Albumin 4.1 3.5 - 5.0 g/dL [facility] ([place]) AST 28 10 - 45 Units/L [facility] ([place]) ALT 30 7 - 45 Units/L [facility] ([place]) Alk phos 68 40 - 130 Units/L [facility] ([place]) Bilirubin, total 0.3 0.1 - 1.2 mg/dL [facility] ([place]) Protein, pl 7.0 6.5 - 8.5 g/dL [facility] ([place]) Anion gap 15 2 - 15 mmol/L [facility] ([place]) Blood specimen (specimen) 09/15/2017 9:39 PM CDT 09/15/2017 9:46 PM CDT Narrative [facility] ([place]) - 09/15/2017 10:32 PM CDT us Christiano Mai MD LAB BLOOD ORDERABLES Chiquita ferro Result [facility] ([place]) 1 [facility] Department [place] [address] * Blood culture Blood (09/15/2017 9:39 PM CDT) Report Final Report: No growth [facility] ([place]) Comment:Testing performed by : [facility], [facility], [place]., [address] Blood specimen (specimen) 09/15/2017 9:39 PM CDT 09/16/2017 12:26 AM CDT Narrative [facility] (DAGO) - 09/20/2017 7:01 AM CDT 1. Blood cultures are incubated for 5 days, and cultures are monitored continuously. ??The first negative report is issued within 24 hours of receipt in the laboratory. ??Positive cultures are called in accordance with the critical call policy. 2. The most important factor for detection microbes in the setting of blood stream infection is the volume of blood submitted for culture. ??For pediatric patients, the recommended volume of blood to collect is 1 mL of blood per year of patient age, up to 15 mL, per blood culture set. For adult patients, 20 mL of blood, divided equally between an aerobic and anaerobic blood culture bottle, is recommended for each blood culture set. ??Failure to collect an optimal blood volume can result in false negative blood cultures. 3. Bloodstream infection is more likely to be catheter related if the time to culture positivity of a blood culture drawn through the catheter is at least 2.5 hours faster than the time to positivity of a percutaneous culture of the same volume drawn at the same time, using the same media type. 4. Organism identification and/or antimicrobial susceptibly testing, if reported, [place] [address] 5. For blood cultures with gram-positive cocci, a rapid molecular test for organism identification may be performed using the [employer] Nanosphere Gram Positive Blood Culture Assay. The Nanosphere assay detects microbial DNA in positive blood culture broth via hybridization of target DNA to capture oligonucleotides on a microarray. This assay has been cleared by the [place] Food and Drug Administration and its performance characteristics have been verified by the [facility]. Interpretive data was last revised on October 11, 2016. us Christiano Mai MD LAB MICROBIOLOGY - GENERA L ORDERABLES Final Result IFTIKHAR GUSMAN ([place]) 1 [facility] Department [place] [address] * Troponin T (09/15/2017 9:39 PM CDT) Pathologist [facility] Troponin T <0.01 0.00 - 0.06 ng/mL [facility] ([place]) Comment: Interpretive Data Troponin table: ? Negative ? 0.00-0.06 ng/ml ? Indeterminate ?0.07-0.10 ng/ml ? Consistent with Myocardial Injury ?Greater than 0.10 ng/ml ?? Current interpretive data was last revised on 2014 Blood specimen (specimen) (Blood, Venous) 09/15/2017 9:39 PM CDT 09/15/2017 9:46 PM CDT Narrative [facility] ([place]) - 09/15/2017 10:32 PM CDT us Christiano Mai MD LAB BLOOD ORDERABLES Chiquita ferro Result [facility] ([place]) 1 [facility] Department [place] [address] * (ABNORMAL) CBC with auto differential (09/15/2017 9:39 PM CDT) Pathologist [facility] WBC 14.0(H) 3.8 - 9.9 K/cumm [facility] ([place]) RBC 4.66 3.90 - 5.20 M/cumm [facility] ([place]) Hgb 14.0 11.9 - 15.5 g/dL [facility] ([place]) Hct 40.3 35.6 - 45.5 % [facility] ([place]) MCV 86.5 81.3 - 96.4 fL [facility] ([place]) MCH 30.0 27.1 - 33.3 pg [facility] ([place]) MCHC 34.7 32.3 - 35.7 g/dL IFTIKHAR GUSMAN ([place]) RDW CV 12.8 11.1 - 14.9 % IFTIKHAR GUSMAN ([place]) RDW SD 40.6 35.7 - 48.1 fL IFTIKHAR GUSMAN ([place]) Plt 208 150 - 400 K/cumm IFTIKHAR GUSMAN ([place]) MPV 8.5(L) 9.1 - 12.3 fL IFTIKHAR GUSMAN ([place]) NRBC abs 0.00 0.00 - 0.01 K/cumm IFTIKHAR GUSMAN ([place]) Blood specimen (specimen) (Blood, Venous) 09/15/2017 9:39 PM CDT 09/15/2017 9:46 PM CDT Narrative IFTIKHAR PuriREDDICK) - 09/15/2017 9:49 PM CDT us Christiano Mai MD LAB BLOOD ORDERABLES Chiquita l Result IFTIKHAR PuriREDDICK) 1 [facility] Department [place] [address] * XR Chest Pa Lateral 2 Vw [...] PNEUMONIA. Electronically signed by: Fredrick Galvez M.D. Christiano Mai MD IMG XR PROCEDURES Final R esult documented in this encounter Visit Diagnoses Diagnosis Sepsis (HCC)- Primary Community acquired pneumonia of left lower lobe of lung SOB (shortness of breath) Shortness of breath Cough Community acquired pneumonia of left lower lobe of lung Hypotension Unspecified hypotension documented in this encounter Admitting Diagnoses Diagnosis Community acquired pneumonia of left lower lobe of lung documented in this encounter Administered Medications Inactive Administered Medications - up to 3 most recent administrations Medication Order MAR Action Action Date Dose Rate Site acetaminophen (TYLENOL) tablet 650 mg 650 mg, oral, Every 6 hours PRN, 1st line for pain, Starting on Tue09/16/17 at 0238 Given 09/17/2017 9:25 AM CDT 650 mg Given 09/16/2017 8:25 PM CDT 650 mg albuterol (PROVENTIL,VENTOLIN) 2.5 mg /3 mL (0.083 %) nebulizer solution 5 mg 5 mg, nebulization, Once (respiratory medicine physician), On Radha 09/15/17 at 2115, For 1 dose, Indications: DyspneaIndications:Dyspnea Given 09/15/2017 9:48 PM CDT 5 mg azithromycin (ZITHROMAX) 500 mg in sodium chloride 0.9% 250 mL IVPB 500 mg, intravenous, Administer over 60 Minutes, Every 24 hours scheduled, First dose on Tue09/16/17 at 0300, Indications: Pneumonia, Community AcquiredIndications:Pneumonia, Community Acquired New Bag 09/16/2017 2:11 AM CDT 500 mg azithromycin (ZITHROMAX) 500 mg in sodium chloride 0.9% 250 mL IVPB 500 mg, intravenous, Administer over 60 Minutes, Every 24 hours scheduled, First dose on 09/17/17 at 0900, Indications: CAPIndications:CAP New Bag 09/17/2017 9:17 AM CDT 500 mg bisacodyl EC (DULCOLAX EC) tablet 10 mg 10 mg, oral, Daily PRN, constipation, If no results 24 hours after milk of magnesia, Starting on Tue09/16/17 at 0238, Do not crush or chew cefTRIAXone (ROCEPHIN) IV syringe 1,000 mg 1,000 mg, intravenous, Administer over 4 Minutes, Every 24 hours scheduled, First dose on Tue09/16/17 at 0900, Indications: Pneumonia, Community AcquiredIndications:Pneumonia, Community Acquired Given 09/17/2017 9:16 AM CDT 1,000 mg Given 09/16/2017 8:07 AM CDT 1,000 mg cefTRIAXone (ROCEPHIN) IV syringe 2,000 mg 2,000 mg, intravenous, Administer over 4 Minutes, Once, On Radha 09/15/17 at 2230, For 1 dose, Indications: Upper Respiratory/HEENT InfectionIndications:Upper Respiratory/HEENT Infection Given 09/15/2017 11:42 PM CDT 2,000 mg enoxaparin (LOVENOX) syringe 40 mg 40 mg, subcutaneous, Daily (for enoxaparin), First dose on Tue09/16/17 at 2100, Indications: VTE ProphylaxisIndications:VTE Prophylaxis Given 09/16/2017 8:26 PM CDT 40 mg Right Upper Arm famotidine (PEPCID) tablet 20 mg 20 mg, oral, Daily, First dose on Tue09/16/17 at 0900 Given 09/17/2017 9:17 AM CDT 20 mg Given 09/16/2017 8:07 AM CDT 20 mg guaiFENesin-dextromethorphan ER (MUCINEX DM) 600-30 mg per 12 hour tablet 1 tablet 1 tablet, oral, 2 times daily, First dose on Tue09/16/17 at 0900 Given 09/17/2017 9:17 AM CDT 1 tablet Given 09/16/2017 8:26 PM CDT 1 tablet Given 09/16/2017 8:07 AM CDT 1 tablet ibuprofen (ADVIL,MOTRIN) tablet 800 mg 800 mg, oral, Once, On Radha 09/15/17 at 2230, For 1 dose Given 09/15/2017 10:26 PM CDT 800 mg ipratropium-albuterol (DUO-NEB) 0.5-2.5 mg/3 mL nebulizer solution 3 mL 3 mL, nebulization, Every 4 hours while awake (respiratory medicine physician), First dose on Tue09/16/17 at 0900, Indications: Chronic Obstructive Pulmonary Disease with BronchospasmsIndications:Chronic Obstructive Pulmonary Disease with Bronchospasms Given 09/16/2017 1:25 PM CDT 3 mL Given 09/16/2017 8:25 AM CDT 3 mL ipratropium-albuterol (DUO-NEB) 0.5-2.5 mg/3 mL nebulizer solution 3 mL 3 mL, nebulization, Every 6 hours (respiratory medicine physician), First dose (after last modification) on Tue09/16/17 at 2100, Indications: Chronic Obstructive Pulmonary Disease with BronchospasmsIndications:Chronic Obstructive Pulmonary Disease with Bronchospasms Given 09/17/2017 8:03 AM CDT 3 mL Given 09/16/2017 7:59 PM CDT 3 mL ipratropium-albuterol (DUO-NEB) 0.5-2.5 mg/3 mL nebulizer solution 3 mL 3 mL, nebulization, Every 6 hours PRN (respiratory medicine physician), wheezing, shortness of breath, Starting on 09/17/17 at 0815, Indications: Chronic Obstructive Pulmonary Disease with BronchospasmsIndications:Chronic Obstructive Pulmonary Disease with Bronchospasms magnesium hydroxide (MILK OF MAGNESIA) 80 mg/mL oral suspension 30 mL 30 mL, oral, Daily PRN, constipation, Starting on Tue09/16/17 at 0238 mineral oil (FLEET MINERAL OIL) enema 1 enema 1 enema, rectal, Daily PRN, constipation, if no results 24 hours after bisacodyl, Starting on Tue09/16/17 at 0238, Indications: constipationIndications:constipat ion ondansetron (ZOFRAN) injection 4 mg 4 mg, intravenous, Every 6 hours PRN, nausea, vomiting, if not tolerating PO, Starting on Tue09/16/17 at 0225, Indications: Nausea and VomitingIndications:Nausea and Vomiting ondansetron ODT (ZOFRAN-ODT) disintegrating tablet 4 mg 4 mg, oral, Every 6 hours PRN, nausea, vomiting, Starting on Tue09/16/17 at 0225, Indications: Nausea and VomitingIndications:Nausea and Vomiting sodium chloride 0.9% bolus 1,000 mL 1,000 mL, intravenous, at 1,000 mL/hr, Administer over 1 Hours, Once, On Radha 09/15/17 at 2230, For 1 dose New Bag 09/15/2017 11:41 PM CDT 1,000 mL 1000 mL/hr sodium chloride 0.9% bolus 1,000 mL 1,000 mL, intravenous, at 1,000 mL/hr, Administer over 1 Hours, Once, On Tue09/16/17 at 0130, For 1 dose New Bag 09/16/2017 1:27 AM CDT 1,000 mL 1000 mL/hr sodium chloride 0.9% infusion 125 mL/hr, intravenous, Continuous, Starting on Tue09/16/17 at 0300 New Bag 09/16/2017 2:28 AM CDT 125 mL/hr 125 mL/hr sodium chloride 0.9% infusion 75 mL/hr, intravenous, Continuous, Starting on Tue09/16/17 at 0715 New Bag 09/17/2017 4:49 AM CDT 75 mL/hr 75 mL/hr New Bag 09/16/2017 3:41 PM CDT 75 mL/hr 75 mL/hr New Bag 09/16/2017 8:08 AM CDT 75 mL/hr 75 mL/hr documented in this encounter Discontinued Medications Medication Sig Discontinue Reason Start Date End Da te azithromycin (ZITHROMAX) 250 mg tabletIndications:Uppe r Respiratory/HEENT Infection Take 2 tablets the first day, then 1 tablet daily for 4 days Stop Taking at Discharge 09/16/2017 09/17/2017 documented as of this encounter Active and Recently Administered Medications Times are shown in CDT. Scheduled Medication Order 09/15/2017 09/16/2017 09/17/2017 albuterol (PROVENTIL,VENTOLIN) 2.5 mg /3 mL (0.083 %) nebulizer solution 5 mg (COMPLETED) 5 mg, nebulization, Once (respiratory medicine physician), On Radha 09/15/17 at 2115, For 1 dose, Indications: Dyspnea 2147 (Given - Provider: Brant Meza, NUTRITION ASSOCIATE) azithromycin (ZITHROMAX) 500 mg in sodium chloride 0.9% 250 mL IVPB (CANCELED) 500 mg, intravenous, Administer over 60 Minutes, Every 24 hours scheduled, First dose on Tue09/16/17 at 0300, Indications: Pneumonia, Community Acquired 0211 (New Bag - Provider: Yesenia Gil RN - Comment: Alaris pump)0215 (Continue to Inpatient Floor - Provider: Yesenia Gil RN)0311 (Stopped - Provider: Nohelia eMrcer RN) azithromycin (ZITHROMAX) 500 mg in sodium chloride 0.9% 250 mL IVPB 500 mg, intravenous, Administer over 60 Minutes, Every 24 hours scheduled, First dose on Tue09/17/17 at 0900, Indications: CAP 916 (New Bag - Provider: Summer Yu RN) cefTRIAXone (ROCEPHIN) IV syringe 1,000 mg 1,000 mg, intravenous, Administer over 4 Minutes, Every 24 hours scheduled, First dose on Tue09/16/17 at 0900, Indications: Pneumonia, Community Acquired 08 (Given - Provider: Chyna Martienz RN) 915 (Given - Provider: Summer Yu RN) cefTRIAXone (ROCEPHIN) IV syringe 2,000 mg (COMPLETED) 2,000 mg, intravenous, Administer over 4 Minutes, Once, On Radha 09/15/17 at 2230, For 1 dose, Indications: Upper Respiratory/HEENT Infection 2342 (Given - Provider: Viridiana Magaña RN - Comment: This RN medicating pt for another nurse) enoxaparin (LOVENOX) syringe 40 mg 40 mg, subcutaneous, Daily (for enoxaparin), First dose on Tue09/16/17 at 2100, Indications: VTE Prophylaxis 2025 (Given - Provider: Edie Reid RN) famotidine (PEPCID) tablet 20 mg 20 mg, oral, Daily, First dose on Tue09/16/17 at 0900 0807 (Given - Provider: Chyna Martinez RN) 916 (Given - Provider: Summer Yu RN) guaiFENesin-dextromethor ruelas ER (MUCINEX DM) 600-30 mg per 12 hour tablet 1 tablet 1 tablet, oral, 2 times daily, First dose on Tue09/16/17 at 0900 0807 (Given - Provider: Chyna Martinez RN)2025 (Given - Provider: Edie Reid RN) 09 (Given - Provider: Summer Yu RN) ibuprofen (ADVIL,MOTRIN) tablet 800 mg (COMPLETED) 800 mg, oral, Once, On Radha 09/15/17 at 2230, For 1 dose 2225 (Given - Provider: Yesenia Gil RN) ipratropium-albuterol (DUO-NEB) 0.5-2.5 mg/3 mL nebulizer solution 3 mL (CANCELED) 3 mL, nebulization, Every 4 hours while awake (respiratory medicine physician), First dose on Tue09/16/17 at 0900, Indications: Chronic Obstructive Pulmonary Disease with Bronchospasms 0825 (Given - Provider: Compa Carlos, JOSH)1325 (Given - Provider: Compa Carlos, JOSH) ipratropium-albuterol (DUO-NEB) 0.5-2.5 mg/3 mL nebulizer solution 3 mL (CANCELED) 3 mL, nebulization, Every 6 hours (respiratory medicine physician), First dose (after last modification) on Tue09/16/17 at 2100, Indications: Chronic Obstructive Pulmonary Disease with Bronchospasms 1959 (Given - Provider: Ophelia Pires, JOSH) 0208 (Not Given - Provider: Ophelia Pires RRT - Reason: Patient/family refused)0803 (Given - Provider: Rosa Elias, JOSH) sodium chloride 0.9% bolus 1,000 mL (COMPLETED) 1,000 mL, intravenous, at 1,000 mL/hr, Administer over 1 Hours, Once, On Radha 09/15/17 at 2230, For 1 dose 2341 (New Bag - Provider: Viridiana Magaña, ASHA) 0034 (Stopped - Provider: Viridiana Magaña, ASHA) sodium chloride 0.9% bolus 1,000 mL (COMPLETED) 1,000 mL, intravenous, at 1,000 mL/hr, Administer over 1 Hours, Once, On Tue09/16/17 at 0130, For 1 dose 0127 (New Bag - Provider: Yesenia Gil RN)0214 (Continue to Inpatient Floor - Provider: Yesenia Gil RN)0242 (Stopped - Provider: Nohelia Mercer, ASHA) Continuous Medication Order 09/15/2017 09/16/2017 09/17/2017 sodium chloride 0.9% infusion (CANCELED) 125 mL/hr, intravenous, Continuous, Starting on Tue09/16/17 at 0300 0228 (New Bag - Provider: Nohelia Mercer, ASHA) sodium chloride 0.9% infusion 75 mL/hr, intravenous, Continuous, Starting on Tue09/16/17 at 0715 0808 (New Bag - Provider: Chyna Martinez RN)1541 (New Bag - Provider: Chyna Martinez RN) 0449 (New Bag - Provider: Edie Reid RN) PRN Medication Order 09/15/2017 09/16/2017 09/17/2017 acetaminophen (TYLENOL) tablet 650 mg 650 mg, oral, Every 6 hours PRN, 1st line for pain, Starting on Tue09/16/17 at 0238 2024 (Given - Provider: Edie Reid RN - Comment: ribs from coughing) 0925 (Given - Provider: Summer Yu RN) bisacodyl EC (DULCOLAX EC) tablet 10 mg 10 mg, oral, Daily PRN, constipation, If no results 24 hours after milk of magnesia, Starting on Tue09/16/17 at 0238, Do not crush or chew ipratropium-albuterol (DUO-NEB) 0.5-2.5 mg/3 mL nebulizer solution 3 mL 3 mL, nebulization, Every 6 hours PRN (respiratory medicine physician), wheezing, shortness of breath, Starting on Tue09/17/17 at 0815, Indications: Chronic Obstructive Pulmonary Disease with Bronchospasms magnesium hydroxide (MILK OF MAGNESIA) 80 mg/mL oral suspension 30 mL 30 mL, oral, Daily PRN, constipation, Starting on Tue09/16/17 at 0238 mineral oil (FLEET MINERAL OIL) enema 1 enema 1 enema, rectal, Daily PRN, constipation, if no results 24 hours after bisacodyl, Starting on Tue09/16/17 at 0238, Indications: constipation ondansetron (ZOFRAN) injection 4 mg(Linked Group 1) 4 mg, intravenous, Every 6 hours PRN, nausea, vomiting, if not tolerating PO, Starting on Tue09/16/17 at 0225, Indications: Nausea and Vomiting ondansetron ODT (ZOFRAN-ODT) disintegrating tablet 4 mg(Linked Group 1) 4 mg, oral, Every 6 hours PRN, nausea, vomiting, Starting on Tue09/16/17 at 0225, Indications: Nausea and Vomiting Linked Groups Order Group 1: ondansetron ODT (ZOFRAN-ODT) disintegrating tablet 4 mgJump to med 4 mg, oral, Every 6 hours PRN, nausea, vomiting, Starting on Tue09/16/17 at 0225, Indications: Nausea and Vomiting Or ondansetron (ZOFRAN) injection 4 mgJump to med 4 mg, intravenous, Every 6 hours PRN, nausea, vomiting, if not tolerating PO, Starting on Tue09/16/17 at 0225, Indications: Nausea and Vomiting documented in this encounter Orders Medications Ordered That Fareed ht Not Have Been Administered Count Last Ordered Date First Ordered Date ipratropium-albuterol (DUO-N EB) 0.5-2.5 mg/3 mL nebulizer solution 3 mL 1 09/17/2017 bisacodyl EC (DULCOLAX EC) tablet 10 mg 1 0 09/16/2017 magnesium hydroxide (MILK OF MAGNESIA) 80 mg/mL oral suspension 30 mL 1 09/16/2017 mineral oil (FLEET MINERAL O IL) enema 1 enema 1 09/16/2017 ondansetron (ZOFRAN) injection 4 mg 1 09/16 ondansetron ODT (ZOFRAN-ODT) disintegrating tablet 4 mg 1 09/16/2017 acetaminophen (TYLENOL) tablet 1,000 mg 1 0 09/15/2017 Nursing Count Last Ordered Date First Orde red Date DISCHARGE ACTIVITY 1 09/17/2017 DISCHARGE CALL PROVIDER 8 09/17/2017 DISCHARGE INSTRUCTIONS 2 09/17/2017 FOLLOW UP PRIMARY PHYSICIAN 1 09/17/2017 WEIGH PATIENT 1 09/16/2017 CHECK TEMPERATURE 1 09/15/2017 NURSING COMMUNICATION 1 09/15/2017 PULSE OXIMETRY 1 09/15/2017 IV Count Last Ordered Date First Orde red Date SALINE LOCK IV 1 09/15/2017 Admission Count Last Ordered Date First Orde red Date ASSIGN PATIENT STATUS 1 09/16/2017 Discharge Count Last Ordered Date First Orde red Date DISCHARGE PATIENT 1 09/17/2017 CORE MEASURES Count Last Ordered Date First Ord ered Date REASON FOR NO VTE PROPHYLAXIS AT ADMISSION 1 09/16/2017 ADT Patient Update Count Last Ordered Date Firs t Ordered Date ED IP DECISION TO ADMIT 1 09/16/2017 documented in this encounter Care Teams [employer] Relationship Specialty Start Date End Date Kaveh Loza MD PCP - General Internal Medicine 09/15/17 documented as of this encounter
--- OUTSIDE RECORDS SUMMARY | 2024-06-12 04:24 | XMS_ITS | Encounter Summary ---
Author Organization [facility] Healthcare Address [address] [place] [address] Care Team Providers Care Fish Worm Grower Name Role Phone Unavailable Primary Care Provider Unavailabl e Encounter Details Date Type Department Care Team (Late st Contact Info) Description 06/08/2007 10:10 AM FOLDER HAND - 06/08/2007 11:59 PM FOLDER HAND Hospital Encounter [facility] MD [address] [place] [address] [place] [id number] Social History Tobacco Use Types Packs/Day Years Used Date Smoking Tobacco: Never Assessed Comments Unknown Sex and Gender Information Value Date Recorded Sex Assigned at Not on file Legal Sex Female 1:51 AM FOLDER HAND Gender Identity Not on file Sexual Orientation Not on file documented as of this encounter Plan of Treatment Not on file documented as of this encounter Visit Diagnoses Not on filedocumented in this encounter
--- OUTSIDE RECORDS SUMMARY | 2024-06-12 04:24 | XMS_ITS | Encounter Summary ---
Author Organization [facility] Healthcare Address [address] [place] [address] Care Team Providers Care Customs Manager Name Role Phone Kaveh Loza MD Primary Care Provider Reason for Visit * Reason Comments Diarrhea Vomiting Encounter Details Date Type Department Care Team (Late st Contact Info) Description 01/14/2022 3:14 AM CDT - 01/14/2022 6:44 AM CDT Emergency [facility] Emergency Department [address] [place] [address] Denise Loza MD [address] [place] [id number] Abdominal pain, vomiting, and diarrhea (Primary Dx) Discharge Disposition: Discharge to home [...] on file 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 Gender Identity Not on file Sexual Orientation Not on file documented as of this encounter Last Filed Vital Signs Vital Sign Reading Time Taken Comments Blood Pressure 144/82 01/14/2022 6:30 AM CDT Pulse 64 01/14/2022 6:30 AM CDT Temperature 36.6 ??C (97.9 ??F) 01/14/2022 2:42 AM CD T Respiratory Rate 16 01/14/2022 2:42 AM CDT Oxygen Saturation 99% 01/14/2022 6:30 AM CDT Inhaled Oxygen Concentration - - Weight 77.1 kg (170 lb) 01/14/2022 2:42 AM CDT Height - - Body Mass Index 30.11 01/16/2020 11:12 AM CDT documented in this encounter Discharge Diagnoses Diagnosis Unspecified abdominal pain - UNSPECIFIED ABDOMINAL PAIN Nausea with vomiting, unspecified - NAUSEA WITH VOMITING, UNSPECIFIED Diarrhea, unspecified - DIARRHEA, UNSPECIFIED Acquired absence of other specified parts of digestive tract - ACQUIRED ABSENCE OF OTHER SPECIFIED PARTS OF DIGESTIVE TRACT documented in this encounter Discharge Instructions * Attachments The following attachments cannot be sent through Care Everywhere. * Acute Nausea and Vomiting (AfterCare(R) Instructions(ER/ED)) (Samoan) * Abdominal Pain (AfterCare(R) Instructions(ER/ED)) (Samoan) * Vomiting and Diarrhea, Nonspecific (Adult) (Samoan) * Vomiting or Diarrhea (Adult), Diet for (Samoan) documented in this encounter Medications at Time of Discharge azithromycin (ZITHROMAX) 250 mg tabletIndications:Ch ronic laryngitis Take 2 tablets the first day, then 1 tablet daily for 4 days. 6 tablet 05/07/2019 cyclobenzaprine (FLEXERIL) 5 mg tablet Take 1 tablet (5 mg total) by mouth 3 (three) times a day as needed for muscle spasms 30 tablet 01/16/2020 dicyclomine (BENTYL) 20 mg tablet Take 1 tablet (20 mg total) by mouth every 8 (eight) hours as needed (Crampy abdominal pain) 20 tablet 01/14/2022 famotidine (PEPCID) 40 mg tablet Take 1 tablet (40 mg total) by mouth nightly for 14 days 20 tablet 01/14/2022 naproxen (NAPROSYN) 500 mg tablet Take 1 tablet (500 mg total) by mouth 2 (two) times a day with meals 14 tablet 01/16/2020 ondansetron ODT (ZOFRAN-ODT) 4 mg disintegrating tablet Take 1 tablet (4 mg total) by mouth every 8 (eight) hours as needed for nausea or vomiting 20 tablet 01/14/2022 predniSONE (DELTASONE) 10 mg tablet Take 6 [...] Refills Last Filled Start Date End Date dicyclomine (BENTYL) 20 mg tablet Take 1 tablet (20 mg total) by mouth every 8 (eight) hours as needed (Crampy abdominal pain) 20 tablet 01/14/2022 famotidine (PEPCID) 40 mg tablet Take 1 tablet (40 mg total) by mouth nightly for 14 days 20 tablet 01/14/2022 ondansetron ODT (ZOFRAN-ODT) 4 mg disintegrating tablet Take 1 tablet (4 mg total) by mouth every 8 (eight) hours as needed for nausea or vomiting 20 tablet 01/14/2022 documented in this encounter Discharge Disposition Disposition Code Departure Means Destination Discharge to home or self care documented in this encounter ED Notes * Denise Loza MD - 01/14/2022 4:16 AM CDT Triage Chief Complaint: Chief Complaint Patient presents with ??? Diarrhea ??? Vomiting Portions of the record may have been created with voice recognition software. Occasional wrong-word or '[id number]' substitutions may have occurred due to the inherent limitations of voice recognition software. Read the chart carefully and recognize, using context, where substitutions have occurred. H&P: Blank Cowan is a 56 y.o. female with h/o cholecystectomy, 3 C sections and an ectopic and tubal ligation, presents for abdominal pain vomiting and diarrhea. The vomiting and diarrhea started 1st about 3 days ago. Patient reports she has not been able to keep anything down she cannot keep down any pain medications or anything. No suspicious food no one else with similar symptoms. No recent travel or antibiotics. She then started developing crampy abdominal pain across the topof her abdomen that radiated out bilaterally. No clear aggravating or relieving factors. It kept getting worse. She was seen at an urgent care for the symptoms but that time she had a lot of flank pain especially on the left side. No dysuria frequency urgency. She had a negative COVID test at that time. She went home but is still unable to tolerate p.o. and reports that she ???can not keep anything down?? she reports she has not been urinating because she is so dehydrated. No hematemesis or black or bloody stool. She did have a fever yesterday with a T-max of 101??. No runny nose cough sore t hroat chest pain or shortness of breath. ROS: At least 10 systems reviewed and otherwise negative except as in the HPI. Past Medical History: Diagnosis Date ??? HX [...] : ??? TUBAL LIGATION Bilateral tubal ligation HOME MEDICATIONS : albuterol HFA (PROVENTIL HFA,VENTOLIN HFA) 90 mcg/actuation inhaler azithromycin (ZITHROMAX) 250 mg tablet cyclobenzaprine (FLEXERIL) 5 mg tablet dicyclomine (BENTYL) 20 mg tablet famotidine (PEPCID) 40 mg tablet naproxen (NAPROSYN) 500 mg tablet ondansetron ODT (ZOFRAN-ODT) 4 mg disintegrating tablet predniSONE (DELTASONE) 10 mg tablet valACYclovir (VALTREX) 1 gram tablet famotidine (PEPCID) 40 mg tablet Allergies Allergen Reactions ??? Iodine Anaphylaxis ??? Sulfa (Sulfonamide Antibiotics) Anaphylaxis and Hives ??? Ciprofloxacin Hives ??? Hydromorphone Hives ??? Morphine Hives ??? Sulfanilamide Hives Reaction: Hives, ??? Augmentin [Amoxicillin-Pot Clavulanate] Other (See comments) Patient states it causes her to have period like bleeding Nursing Notes Reviewed. Physical Exam: ED Triage Vitals [01/14/22 0242] Temp Pulse Resp BP SpO2 36.6 ??C (97.9 ??F) 81 16 139/74 99 % Temp src Heart Rate Source Patient Position BP Location FiO2 (%) Tympanic -- -- -- -- Height Height Method Weight Weight Method -- -- 77.1 kg (170 lb) -- GENERAL APPEARANCE: Awake and alert. No acute distress. HEAD: Atraumatic. EYES: Sclera anicteric. EOMI. ENT: Tolerates saliva. NECK: Supple. Trachea midline. HEART: RRR. Radial pulses 2+. LUNGS: Respirations unlabored. CTAB. ABDOMEN: Soft. Somewhat tender in the left upper quadrant and left CVA region. No guarding or rebound. EXTREMITIES: No acute deformities. SKIN: Warm and dry. NEUROLOGICAL: No gross facial drooping. Moves all 4 extremities spontaneously. Normal speech and mental status. No ataxia noted. PSYCHIATRIC: Normal mood. I have reviewed and interpreted all of the currently available lab results from this visit (if applicable): Labs Reviewed URINALYSIS AND REFLEX TO MICROSCOPIC AND CULTURE - Abnormal Result Value Color, ur Yellow Clarity, ur Clear Specific gravity, ur 1.024 pH, urine 5.5 Protein, ur ql Trace Glucose, ur ql Negative Ketones, ur Negative Bilirubin, ur Negative Blood, ur Negative Urobilinogen, ur <2.0 Nitrite, ur Negative Leukocyte esterase, ur 4+ (*) UA reflex comment Reflex to microscopic UA will be performed. Narrative: Urine pH is affected by diet, medications, systemic acid-base disturbances, and renal tubular function. pH may affect urinary stone formation. For example, urine pH below 6.0 may help reduce the tendency for calcium phosphate stones and pH greater than 6.0 may reduce the tendency for uric acid stone formation. Source: [employer].Last revised 06-09-2017 CBC WITH AUTO DIFFERENTIAL - Abnormal WBC 8.3 Hgb 14.8 Hct 43.8 Plt 279 MPV 9.0 (*) RBC 5.05 MCV 86.7 MCH 29.3 MCHC 33.8 RDW CV 12.5 RDW SD 39.5 NRBC abs 0.00 URINALYSIS, MICROSCOPIC ONLY - Abnormal WBC, ur 21-50 (*) RBC, ur 0-2 Epithelial cells, squamous, ur 1-5 Bacteria, ur Trace (*) Mucous, ur Present (*) Culture Reflex Comment Reflex to urine culture will be performed. URINE CULTURE COMPREHENSIVE METABOLIC PANEL Sodium 138 Potassium, pl 3.9 Chloride 103 CO2 24 Anion gap 12 BUN 11 Creatinine 0.73 Glucose 128 Calcium 9.6 Bilirubin, total 0.6 Protein, pl 7.7 Albumin 4.4 Alk phos 80 ALT 33 AST 29 DIFFERENTIAL AUTO Neutrophil abs 6.2 Imm gran abs 0.0 Lymphocyte abs 1.4 Monocyte abs 0.6 Eosinophil abs 0.1 Basophil abs 0.1 Neutrophil pct 74.1 Imm gran pct 0.2 Lymphocyte pct 17.1 Monocyte pct 7.0 Eosinophil pct 1.0 Basophil pct 0.6 EGFR eGFR 95 Radiographs (if obtained): Report Reviewed: CT Abdomen Pelvis WO Contrast Final Result EKG (if obtained): (All EKGs are interpreted by myself in the absence of a vascular surgery physician) Procedures Chart review shows: ED course/MDM: CT obtained due to the left flank pain and fever yesterday. Patient reports she has not been able to urinate which was more likely related to dehydration all the lab work is all reassuring. No UTI. CT negative for explanation for pain. This is likely some is a viral gastroenteritis given the fever yesterday. We discussed the diagnostic uncertainty and the signs and symptoms that would necessitate return to the emergency department. Tolerating p.o.. ED Course as of 01/14/22 0600 Time: 01/14 0530 Value: CT Abdomen Pelvis WO Contrast Comment: IMPRESSION: No acute findings in the abdomen or pelvis. By: Denise Loza MD Time: 01/14 531 Comment: Patient now feels improved. She declined any of the additional medications that were ordered for her like Bentyl and famotidine. She is now tolerating p.o.. No indication for further ED monitoring evaluation or workup. No indication for admission. She has been given return precautions and follow-up instructions which he verbalized understanding agreement. By: Denise Loza MD Clinical Impression: 1. Abdominal pain, vomiting, and diarrhea Disposition: Discharge (Please note that portions of this note may have been completed with a voice recognition program. Defense Attorney errors occur. Please contact me for any clarification.) Denise Loza MD 01/14/22 0601 * Lilliam Tamayo RN - 01/14/2022 2:40 AM CDT Patient on day 3 of V/D. Seen at today and prescribed Cipro. States can not keep anything down. Covid test at negative. States intermittent fevers. documented in this encounter Plan of Treatment Not on file documented as of this encounter Procedures Procedure Name Priority Date/Time Associated Diagnosis Comments URINALYSIS AND REFLEX TO MICROSCOPIC AND CULTURE STAT 01/14/2022 5:41 AM CDT URINALYSIS, MICROSCOPIC ONLY STAT 01/14/2022 5:41 AM CDT URINE CULTURE STAT 01/14/2022 5:[address] ABDOMEN PELVIS WO CONTRAST ED 01/14/2022 4:38 AM CDT EGFR STAT 01/14/2022 2:51 AM CDT DIFFERENTIAL AUTO STAT 01/14/2022 2:5 1 AM CDT CBC WITH AUTO DIFFERENTIAL STAT 01/14/2022 2:51 AM CDT COMPREHENSIVE METABOLIC PANEL STAT 01/14/2022 2:51 AM CDT documented in this encounter Results * Urine culture Urine (01/14/2022 5:41 AM CDT) Report Final Report: Less than 100,000 colonies/mL (clinically insignificant growth based on current clinical standards) [facility] ([place]) Comment:Testing performed by : [facility], [address] [place]., [address] Organism (CLINICALLY INSIGNIFICANT GROWTH [facility] ([place]) Urine 01/14/2022 5:41 AM CDT 01/14/2022 10:23 AM CDT Narrative [facility] ([place]) - 01/15/2022 11:42 AM CDT Urine culture reflexed based upon urinalysis results. Testing performed by [facility] ([phone]) Denise Loza MD LAB MICROBIOLOGY - GENER AL ORDERABLES Final Result [facility] ([place]) 1 [facility] Department [place] [address] * (ABNORMAL) Urinalysis, microscopic only (01/14/2022 5:41 AM CDT) WBC, ur 21-50(A) 0 - 5 /HPF [facility] ([place]) RBC, ur 0-2 0 - 2 /HPF [facility] ([place]) Epithelial cells, squamous, ur 1-5 0 - 5 /HPF [facility] ([place]) Bacteria, ur Trace(A) [facility] ([place]) Mucous, ur Present(A) [facility] ([place]) Culture Reflex Comment Reflex to urine culture will be performed. [facility] ([place]) Urine 01/14/2022 5:41 AM CDT 01/14/2022 5:44 AM CDT Denise Loza MD LAB URINE ORDERABLES Fin al Result Performing Organization Address City/[facility]/ZIP Co de Phone Number [facility] ([place]) 1 [facility] [place] [address] * (ABNORMAL) Urinalysis reflex to microscopic and culture Urine (01/14/2022 5:41 AM CDT) Color, ur Yellow Yellow [facility] ([place]) Clarity, ur Clear Clear [facility] ([place]) Specific gravity, ur 1.024 1.003 - 1.030 [facility] ([place]) pH, urine 5.5 [facility] ([place]) Protein, ur ql Trace Negative [facility] ([place]) Glucose, ur ql Negative Negative [facility] ([place]) Ketones, ur Negative Negative [facility] ([place]) Bilirubin, ur Negative Negative [facility] ([place]) Blood, ur Negative Negative [facility] ([place]) Urobilinogen, ur <2.0 <2.0 mg/dL [facility] ([place]) Nitrite, ur Negative Negative [facility] ([place]) Leukocyte esterase, ur 4+(A) Negative [facility] ([place]) UA reflex comment Reflex to microscopic UA will be performed. [facility] ([place]) Urine 01/14/2022 5:41 AM CDT 01/14/2022 5:44 AM CDT Narrative [facility] ([place]) - 01/14/2022 5:48 AM CDT ?? Urine pH is affected by diet, medications, systemic acid-base disturbances, and renal tubular function. ??pH may affect urinary stone formation. ??For example, urine pH below 6.0 may help reduce the tendency for calcium phosphate stones and pH greater than 6.0 may reduce the tendency for uric acid stone formation. Source: [employer]. Last revised 06-09-2017 us Denise Loza MD LAB MICROBIOLOGY - GENER AL ORDERABLES Final Result Performing Organization Address City/[facility]/ZIP Co de Phone Number [facility] ([place]) 1 [facility] [place] [address] * CT Abdomen Pelvis WO Contrast (01/14/2022 4:38 AM CDT) Anatomical Region Laterality Modality Body N/A Computed Tomogra phy 01/14/2022 5:12 AM CDT Narrative 01/14/2022 5:19 AM CDT EXAM DESCRIPTION: ?? CT ABDOMEN PELVIS WO CONTRAST REASON FOR STUDY: ?? Nausea/vomiting, Left ?? C/o left sided flank pain, vomiting, and diarrhea x 3 days. Pt also has intermittent fevers. ??Hx of cholecystectomy, c-sections, tubal ligation ??No hx of kidney stones ?? TECHNIQUE: CT scan of the abdomen and pelvis performed without intravenous and ??without ??oral contrast using helical scanning technique. Reconstructed coronal and sagittal MPR images reviewed. All images stored on PACS. ?? Automated exposure control was used as a dose optimization technique for this examination. COMPARISON: None Available. FINDINGS: The sensitivity for detection of visceral lesions is diminished without the use of intravenous contrast. LOWER CHEST: ?? No significant pulmonary abnormalities. No effusion. LIVER: ?? Moderate diffuse hepatic steatosis. ?? No focal lesions. GALLBLADDER: ?? Surgically absent. BILE DUCTS: ?? No intrahepatic or extrahepatic ductal dilatation. SPLEEN: ?? Normal size. ??No focal lesions. PANCREAS: ?? No identified cystic or solid masses. ??No significant calcifications. No adjacent inflammation or peripancreatic fluid collections. Pancreatic duct not dilated. ADRENALS: ?? Normal. KIDNEYS/URINARY TRACT: ?? No identified significant cystic or solid masses. No stones. No hydronephrosis or hydroureter. ?Urinary bladder is unremarkable. GI: ?? No dilated bowel loops. No obvious wall thickening. Normal appendix. Scattered diverticular disease without diverticulitis. PERITONEUM: ?? No ascites or free air. RETROPERITONEUM: ?? No mass or adenopathy. REPRODUCTIVE: ?? No significant abnormality. VASCULATURE: ?? No abdominal aortic aneurysm. MUSCULOSKELETAL: ?? No significant abnormality. OTHER: ?? No other abnormality. IMPRESSION: ??No acute findings in the abdomen or pelvis. THIS IS AN ELECTRONICALLY VERIFIED FINAL REPORT 01/14/2022 5:19 AM - Electronically signed by ??Richy Dunbar M.D. RW: DRAKE D: ??01/14/2022 5:19 AM T: ??01/14/2022 5:19 AM Report ID: [id number] Reading Location: ??[id number] Procedure Note Richy Dunbar MD - 01/14/2022 EXAM DESCRIPTION: CT ABDOMEN PELVIS WO CONTRAST REASON FOR STUDY: Nausea/vomiting, Left C/o left sided flank pain, vomiting, and diarrhea x 3 days. Pt also has intermittent fevers. Hx of cholecystectomy, c-sections, tubal ligationNo hx of kidney stones TECHNIQUE: CT scan of the abdomen and pelvis performed without intravenousand without oral contrast using helical scanning technique. Reconstructed coronal and sagittal MPR images reviewed. All images stored on PACS. Automated exposure control was used as a dose optimization technique forthis examination. COMPARISON: None Available. FINDINGS: The sensitivity for detection of visceral lesions is diminished withoutthe use of intravenous contrast. LOWER CHEST: No significant pulmonary abnormalities. No effusion. LIVER: Moderate diffuse hepatic steatosis. No focal lesions. GALLBLADDER: Surgically absent. BILE DUCTS: No intrahepatic or extrahepatic ductal dilatation. SPLEEN: Normal size. No focal lesions. PANCREAS: No identified cystic or solid masses. No significant calcifications. No adjacent inflammation or peripancreatic fluidcollections. Pancreatic duct not dilated. ADRENALS: Normal. KIDNEYS/URINARY TRACT: No identified significant cystic or solid masses.No stones. No hydronephrosis or hydroureter. Urinary bladder isunremarkable. GI: No dilated bowel loops. No obvious wall thickening. Normal appendix. Scattered diverticular disease without diverticulitis. PERITONEUM: No ascites or free air. RETROPERITONEUM: No mass or adenopathy. REPRODUCTIVE: No significant abnormality. VASCULATURE: No abdominal aortic aneurysm. MUSCULOSKELETAL: No significant abnormality. OTHER: No other abnormality. IMPRESSION: No acute findings in the abdomen or pelvis. THIS IS AN ELECTRONICALLY VERIFIED FINAL REPORT 01/14/2022 5:19 AM - Electronically signed by Richy Dunbar M.D. RW: DRAKE Report ID: [id number] Reading Location: [id number] us Denise Loza MD IMG CT PROCEDURES Final Result * eGFR (01/14/2022 2:51 AM CDT) eGFR 95 mL/min/1. 73 m2 [facility] ([place]) Comment: Interpretive Data Reference Interval Normal ?>/= 90 mL/min/1.73m2 Mildly decreased* ? 60 - 89 mL/min/1.73m2 Mildly to moderately decreased ?45 - 59 mL/min/1.73m2 Moderately to severely decreased ??30 - 44 mL/min/1.73m2 Severely decreased ?15 - 29 mL/min/1.73m2 Kidney Failure ?< 15 ??mL/min/1.73m2 *Relative to young adult level Estimated glomerular filtration rate is determined by the 2020 CKD-EPI equation recommended by the National Kidney Foundation (A Unifying Approach to GFR Estimation: Recommendations of the NKF-ASK Task Force on Reassessing the Inclusion of Race in Diagnosing Kidney Disease, JASN 2020). The CKD-EPI equation should not be used for patients with unstable renal function and has not been validated in children and those over 70. Current interpretive data was last reviewed 2021. Blood 01/14/2022 2:51 AM CDT 01/14/2022 2:57 AM CDT Denise Loza MD LAB BLOOD ORDERABLES Fin al Result [facility] ([place]) 1 [facility] Department [place] [address] * Differential, auto (01/14/2022 2:51 AM CDT) Neutrophil abs 6.2 1.7 - 6.5 K/cumm [facility] ([place]) Imm gran abs 0.0 0.0 - 0.1 K/cumm [facility] ([place]) Lymphocyte abs 1.4 0.8 - 3.3 K/cumm [facility] ([place]) Monocyte abs 0.6 0.2 - 0.8 K/cumm [facility] ([place]) Eosinophil abs 0.1 0.0 - 0.5 K/cumm [facility] ([place]) Basophil abs 0.1 0.0 - 0.1 K/cumm [facility] ([place]) Neutrophil pct 74.1 % [facility] ([place]) Comment: Interpretive Data Percent cell count reference ranges are not reported, since discordance with absolute values may lead to misinterpretation of CBC data. Current Interpretive Data was last revised on 2017. Imm gran pct 0.2 % [facility] ([place]) Comment: Interpretive Data Percent cell count reference ranges are not reported, since discordance with absolute values may lead to misinterpretation of CBC data. Current Interpretive Data was last revised on 2017. Lymphocyte pct 17.1 % [facility] ([place]) Comment: Interpretive Data Percent cell count reference ranges are not reported, since discordance with absolute values may lead to misinterpretation of CBC data. Current Interpretive Data was last revised on 2017. Monocyte pct 7.0 % [facility] ([place]) Comment: Interpretive Data Percent cell count reference ranges are not reported, since discordance with absolute values may lead to misinterpretation of CBC data. Current Interpretive Data was last revised on 2017. Eosinophil pct 1.0 % [facility] ([place]) Comment: Interpretive Data Percent cell count reference ranges are not reported, since discordance with absolute values may lead to misinterpretation of CBC data. Current Interpretive Data was last revised on 2017. Basophil pct 0.6 % [facility] ([place]) Comment: Interpretive Data Percent cell count reference ranges are not reported, since discordance with absolute values may lead to misinterpretation of CBC data. Current Interpretive Data was last revised on 2017. Blood 01/14/2022 2:51 AM CDT 01/14/2022 2:57 AM CDT us Denise Loza MD LAB BLOOD ORDERABLES Fin al Result [facility] ([place]) 1 [facility] Department [place] [address] * Comprehensive metabolic panel (01/14/2022 2:51 AM CDT) Sodium 138 135 - 145 mmol/L [facility] ([place]) Potassium, pl 3.9 3.3 - 4.9 mmol/L [facility] ([place]) Chloride 103 97 - 110 mmol/L [facility] ([place]) CO2 24 22 - 32 mmol/L [facility] ([place]) Anion gap 12 2 - 15 mmol/L [facility] ([place]) BUN 11 8 - 25 mg/dL [facility] ([place]) Creatinine 0.73 0.60 - 1.10 mg/dL [facility] ([place]) Glucose 128 70 - 199 mg/dL [facility] ([place]) [...] Current interpretive data was last revised 2017. Calcium 9.6 8.5 - 10.3 mg/dL [facility] ([place]) Bilirubin, total 0.6 0.1 - 1.2 mg/dL [facility] ([place]) Protein, pl 7.7 6.5 - 8.5 g/dL [facility] ([place]) Albumin 4.4 3.5 - 5.0 g/dL [facility] ([place]) Alk phos 80 40 - 130 Units/L [facility] ([place]) ALT 33 7 - 45 Units/L [facility] ([place]) AST 29 10 - 45 Units/L [facility] ([place]) Comment:Slightly Hemolyzed S pecimen Blood (Blood, Venous) 01/14/2022 2:51 AM CDT 01/14/2022 2:57 AM CDT us Denise Loza MD LAB BLOOD ORDERABLES Fin al Result [facility] ([place]) 1 [facility] [place] [address] * (ABNORMAL) CBC with auto differential (01/14/2022 2:51 AM CDT) WBC 8.3 3.8 - 9.9 K/cumm [facility] ([place]) Hgb 14.8 11.9 - 15.5 g/dL [facility] ([place]) Hct 43.8 35.6 - 45.5 % [facility] ([place]) Plt 279 150 - 400 K/cumm [facility] ([place]) MPV 9.0(L) 9.1 - 12.3 fL [facility] ([place]) RBC 5.05 3.90 - 5.20 M/cumm [facility] ([place]) MCV 86.7 81.3 - 96.4 fL [facility] ([place]) MCH 29.3 27.1 - 33.3 pg [facility] ([place]) MCHC 33.8 32.3 - 35.7 g/dL [facility] ([place]) RDW CV 12.5 11.1 - 14.9 % [facility] ([place]) RDW SD 39.5 35.7 - 48.1 fL [facility] NRBC abs 0.00 0.00 - 0.01 K/cumm [facility] Blood (Blood, Venous) 01/14/2022 2:51 AM CDT 01/14/2022 2:57 AM CDT Denise Loza MD LAB BLOOD ORDERABLES Fin al Result [facility] ([place]) 1 [facility] [place] [address] documented in this encounter Visit Diagnoses Diagnosis Abdominal pain, vomiting, and diarrhea- Primary documented in this encounter Administered Medications Inactive Administered Medications - up to 3 most recent administrations Medication Order MAR Action Action Date Dose Rate Site dicyclomine (BENTYL) capsule 20 mg 20 mg, oral, Once, On Radha 01/14/22 at 0532, For 1 dose Given 01/14/2022 6:22 AM CDT 20 mg famotidine (PEPCID) injection 40 mg 40 mg, intravenous, Administer over 2 Minutes, Once, On Radha 01/14/22 at 0532, For 1 dose Given 01/14/2022 6:22 AM CDT 40 mg ketorolac (TORADOL) 15 mg/mL injection 15 mg 15 mg, intravenous, Once, On Radha 01/14/22 at 0416, For 1 dose, For Adult IV push, administer over 15 seconds, Indications: PainIndications:Pain Given 01/14/2022 4:59 AM CDT 15 mg ondansetron (ZOFRAN) injection 4 mg 4 mg, intravenous, Administer over 2 Minutes, Once as needed, nausea, vomiting, If patient unable to tolerate PO, Starting on Radha 01/14/22 at 0245, For 1 dose, Do not administer if patient had 8mg administered within 6 hours of patient presenting to ED Do not administer if patient was formally diagnosed with prolonged QT syndrome ondansetron ODT (ZOFRAN-ODT) disintegrating tablet 4 mg 4 mg, oral, Once as needed, nausea, vomiting, If able to tolerate PO, Starting on Radha 01/14/22 at 0245, For 1 dose, Do not administer if patient had 8mg administered within 6 hours of patient presenting to ED Do not administer if patient was formally diagnosed with prolonged QT syndrome Given 01/14/2022 3:19 AM CDT 4 mg sodium chloride 0.9% bolus 1,000 mL 1,000 mL, intravenous, at 1,000 mL/hr, Administer over 1 Hours, Once, On Radha 01/14/22 at 0416, For 1 dose New Bag 01/14/2022 4:54 AM CDT 1,000 mL 1000 mL/hr documented in this encounter Discontinued Medications Medication Sig Discontinue Reason Start Date End Da te famotidine (PEPCID) 40 mg tabletIndications:Laryng opharyngeal reflux (LPR) Take 1 tablet (40 mg total) by mouth nightly 05/07/2019 01/14/2022 documented as of this encounter Active and Recently Administered Medications Times are shown in CDT. Scheduled Medication Order 01/12/2022 01/13/2022 01/14/2022 acetaminophen (TYLENOL) tablet 1,000 mg 1,000 mg, oral, Once, On Radha 01/14/22 at 0532, For 1 dose 0558 (Not Given - Pr ovider: Lucina Donis RN - Reason: Patient/family refused)0636 (Not Given - Provider: Lucina Donis RN - Reason: Patient/family refused) dicyclomine (BENTYL) capsule 20 mg (COMPLETED) 20 mg, oral, Once, On Radha 01/14/22 at 0532, For 1 dose 0558 (Not Given - Pr ovider: Lucina Donis RN - Reason: Patient/family refused)0622 (Given - Provider: Michelle Rivero) famotidine (PEPCID) injection 40 mg (COMPLETED) 40 mg, intravenous, Administer over 2 Minutes, Once, On Radha 01/14/22 at 0532, For 1 dose 0558 (Not Given - Pr ovider: Lucina Donis RN - Reason: Patient/family refused)0622 (Given - Provider: Michelle Rivero) ketorolac (TORADOL) 15 mg/mL injection 15 mg (COMPLETED) 15 mg, intravenous, Once, On Radha 01/14/22 at 0416, For 1 dose, For Adult IV push, administer over 15 seconds, Indications: Pain 0459 (Given - Provid er: Michelle Rivero) sodium chloride 0.9% bolus 1,000 mL (COMPLETED) 1,000 mL, intravenous, at 1,000 mL/hr, Administer over 1 Hours, Once, On Radha 01/14/22 at 0416, For 1 dose 0454 (New Bag - Prov ider: Michelle Rivero)0605 (Stopped - Provider: Lucina Donis RN) PRN Medication Order 01/12/2022 01/13/2022 01/14/2022 ondansetron (ZOFRAN) injection 4 mg 4 mg, intravenous, Administer over 2 Minutes, Once as needed, nausea, vomiting, If patient unable to tolerate PO, Starting on Radha 01/14/22 at 0245, For 1 dose, Do not administer if patient had 8mg administered within 6 hours of patient presenting to ED Do not administer if patient was formally diagnosed with prolonged QT syndrome ondansetron ODT (ZOFRAN-ODT) disintegrating tablet 4 mg (COMPLETED) 4 mg, oral, Once as needed, nausea, vomiting, If able to tolerate PO, Starting on Radha 01/14/22 at 0245, For 1 dose, Do not administer if patient had 8mg administered within 6 hours of patient presenting to ED Do not administer if patient was formally diagnosed with prolonged QT syndrome 0319 (Given - Provid er: Lilliam Tamayo RN) documented in this encounter Orders Medications Ordered That Fareed ht Not Have Been Administered Count Last Ordered Date First Ordered Date acetaminophen (TYLENOL) tablet 1,000 mg 1 0 01/14/2022 ondansetron (ZOFRAN) injection 4 mg 1 01/14 Nursing Count Last Ordered Date First Orde red Date MISCELLANEOUS NURSING CARE ORDER (SPECIFY) 1 01/14/2022 IV Count Last Ordered Date First Orde red Date SALINE LOCK IV 1 01/14/2022 documented in this encounter Care Teams Customs Manager Relationship Specialty Start Date End Date Kaveh Loza MD PCP - General Internal Medicine 09/15/17 documented as of this encounter
--- OUTSIDE RECORDS SUMMARY | 2024-06-12 04:24 | XMS_ITS | Encounter Summary ---
Author Organization [facility] Address [address] [place] [address] Care Team Providers Care Chronic Care Nurse Name Role Phone Nadir Greene MD Primary Care Provider + Encounter Details Date Type Department Care Team (Late st Contact Info) Description 10/15/2014 2:16 PM CDT - 10/15/2014 11:59 PM CDT Hospital Encounter [facility] Social History Tobacco Use Types Packs/Day Years Used Date Smoking Tobacco: Never Assessed Alcohol Use Standard Drinks/Week Comments No 0 (1 standard drink = 0.6 oz pur e alcohol) Comments Unknown Sex and Gender Information Value Date Recorded Sex Assigned at Not on file 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
--- OUTSIDE RECORDS SUMMARY | 2024-06-12 04:24 | XMS_ITS | Encounter Summary ---
Author Organization [facility] Address [address] [place] [address] Care Team Providers Care Corrugated Sheet Material Sheeter Name Role Phone Kaveh Loza MD Primary Care Provider [phone] Reason for Visit * Reason Comments COVID-19 EVALUATION Pt c/o sore throat a nd no taste x2 days Encounter Details Date Type Department Care Team (Late st Contact Info) Description 12/31/2020 10:45 AM CDT Office Visit [facility] [address] [place] [address] [place] [address] Giuliana Gauthier, CREATIVE CONSULTANT [address] [place] [address] Strep pharyngitis (Primary Dx) Social History Tobacco Use Types Packs/Day Years Used Date Smoking Tobacco: Former Cigarettes 1 5 Smokeless Tobacco: Never Alcohol Use Standard Drinks/Week Comments No 0 (1 standard drink = 0.6 oz pur e alcohol) Comments No Sex and Gender Information Value Date Recorded Sex Assigned at Not on file Legal Sex Female 1:51 AM DEPUTY K 9 Gender Identity Not on file Sexual Orientation Not on file documented as of this encounter Last Filed Vital Signs Vital Sign Reading Time Taken Comments Blood Pressure 98/70 12/31/2020 10:53 AM CDT Pulse 79 12/31/2020 10:53 AM CDT Temperature 36.8 ??C (98.3 ??F) 12/31/2020 10:53 AM C DT Respiratory Rate 18 12/31/2020 10:53 AM CDT Oxygen Saturation 97% 12/31/2020 10:53 AM CDT Inhaled Oxygen Concentration - - Weight - - Height - - Body Mass Index - - documented in this encounter Patient Instructions * Patient Instructions* Giuliana Gauthier NP - 12/31/2020 10:45 AM CDT The rapid strep test performed at the [facility] today was positive. The following is recommended treatment for Strep pharyngitis (strep throat) ??? Complete antibiotic as prescribed ??? Take Tylenol or Motrin for fever/pain ??? Gargle with warm salt water (1tsp salt/1 cup water) or warm tea with honey and lemon to soothe pain ??? Suck on ice chips, popsicles, cough drops, or throat lozenges ??? You may return to work, daycare, or school 24 hours after starting antibiotics and you are fever free without use of Tylenol or Motrin. ??? Strep pharyngitis is contagious. Do not share food, drinks, or utensils ??? Replace your toothbrush within 48 hours after starting antibiotics. If signs/symptoms do not improve or worsen, follow up with your PCP. The rapid COVID antigen test performed in clinic today was negative. Testing is not 100% accurate. Due to your symptoms, the CDC advises to self isolate until at least 10 days have passed since symptom onset, your symptoms have improved, and you have been fever free without the use of fever reducing medications for at least 24 hours. Although you have not been diagnosed with COVID-19, your presenting symptoms could be indicative ofCOVID infection and it is recommended that you stay home for recovery at this time. You may use acetaminophen and/or ibuprofen to control pain and fever. If you have chronic liver disease, have ever had a stomach ulcer or gastrointestinal bleeding talk with your healthcare provider before using these medicines. Aspirin should never be given to anyone under 18 years of age who is ill with a viral infection or fever. It may cause severe liver or brain damage. Your appetite may be poor, so a light diet is ok. Stay well hydrated by drinking 6 to 8 glasses of fluids per day (water, soft drinks, juices, tea, or soup). Extra fluids will help loosen secretions in the nose and lungs. Dhpn-zwb-xkdbooy cold medicines will not shorten the length of time you???re sick, but they may be helpful for relieving the following symptoms: headache, cough, sore throat, and nasal and sinus congestion. If you take prescription medicines, ask your healthcare provider or pharmacist which ivhp-paz-nihcbiu medicines are safe to use. (Note: DO NOT use decongestants if you have high blood pressure.) Steps to help prevent the spread of COVID-19 if you are sick If you are sick with COVID-19 or think you might have COVID-19, follow the steps below to care for yourself and to help protect other people in your home and community. Stay home except to get medical care ??? Most people with COVID-19 have mild illness and are able to recover at home without medical care. Do not leave your home, except to get medical care. Do not visit public areas. ??? Take care of yourself. Get rest and stay hydrated. Take zekg-ocx-avwyevt medicines to help you feel better. ??? Stay in touch with your doctor. Call before you get medical care. Be sure to get care if you have trouble breathing, or have any other emergency warning signs, or if you think it is an emergency. ??? Avoid using public transportation, ride-sharing, or taxis. Monitor your symptoms ??? Symptoms of COVID-19 include fever, cough, shortness of breath or difficulty breathing, fatigue, muscle or body aches, headache, new loss of taste or smell, sore throat, congestion, runny nose, nausea, vomiting, or diarrhea. When to Seek Medical Attention If you develop emergency warning signs for COVID-19 get medical attention immediately. Emergency warning signs include*: ??? Trouble breathing ??? Persistent pain or pressure in the chest ??? New confusion or inability to arouse ??? Bluish lips or face *This list is not all inclusive. Please consult your medical provider for any other symptoms that are severe or concerning. Call 911 if you have a medical emergency: If you have a medical emergency and need to call 911, notify the dredge operator that you have or think you might have, COVID-19. If possible, put on a facemask before medical help arrives. Separate yourself from other people in your home, this is known as home isolation ??? As much as possible, you should stay away from other people and pets in your home. You should stay in a specific ???sick room?? if possible. Use a separate bathroom, if available. If you need eloisa around other people or animals in or outside of the home, wear a mask For more information on sharing close living quarters with someone who is sick visit https://www.cdc .gov/coronavirus/2019-ncov/rzzld-xzdz-lxsbrm/ewdmcv-ou-faocx-quarters.html For more information on COVID-19 and pets visit https://www.cdc.gov/coronavirus/2019-ncov/faq.html Call ahead before visiting your doctor ??? Many medical visits for routine care are being postponed or done by phone or telemedicine. ??? If you have a medical appointment that cannot be postponed, call your doctor???s office, and tell them you have or may have COVID-19. This will help the office protect themselves and other patients. If you are sick wear a face mask over your nose and mouth in the following situations ??? You should wear a face mask over your nose and mouth if you must be around other people or animals, including pets (even at home). ??? You don't need to wear the face mask if you are alone. If you can't put on a face mask (becauseof trouble breathing, for example), cover your coughs and sneezes in some other way (tissue or inner elbow). Try to stay at least 6 feet away from other people. This will help protect the people around you. ??? Face masks should not be placed on children under 2 years old, anyone who has trouble breathing, or anyone who is not able to remove the covering without help. Cover your coughs and sneezes ??? Cover your mouth and nose with a tissue or the inside of your elbow when you cough or sneeze. ??? Throw used tissues in a lined trash can. ??? Immediately wash your hands with soap and water for at least 20 seconds. If soap and water are not available, clean your hands with an alcohol-based hand field sales specialist that contains at least 60% alcohol. Clean your hands often ??? Wash your hands often with soap and water for at least 20 seconds. This is especially importantafter blowing your nose, coughing, or sneezing; going to the bathroom; and before eating or preparing food. ??? Use hand field sales specialist if soap and water are not available. Use an alcohol-based hand field sales specialist with at least 60% alcohol, covering all surfaces of your hands and rubbing them together until they feel dry. ??? Soap and water are the best option, especially if hands are visibly dirty. ??? Avoid touching your eyes, nose, and mouth especially with unwashed hands. Avoid sharing personal household items ??? Do not share dishes, drinking glasses, cups, eating utensils, towels, or bedding with other people in your home. ??? After using these items, wash them thoroughly with soap and water or put them in the telephone order supervisor. Clean all ???high-touch?? surfaces everyday. High-touch surfaces include phones, remote controls, counters, tabletops, doorknobs, bathroom fixtures, toilets, keyboards, tablets, and bedside tables. ??? Clean and disinfect high-touch surfaces in your ???sick room?? and bathroom everyday while wearing disposable gloves. Let someone else clean and disinfect surfaces in common areas, but not your bedroom and bathroom. ??? If a caregiver or other person needs to clean and disinfect a sick person???s bedroom or bathroom, they should do so on an as-needed basis. The caregiver/other person should wear a mask and disposable gloves prior to cleaning.They should wait as long as possible after the sick person has used the bathroom before coming in to clean and use the bathroom. ??? Clean and disinfect areas that may have blood, stool, or body fluids on them. ??? Clean the area or item with soap and water or another detergent if it is dirty. Then, use a household disinfectant. o Be sure to follow the instructions on the label to ensure safe and effective use of the product. Many products recommend keeping the surface wet for several minutes to ensure germs are killed. Manyalso recommend precautions such as wearing gloves and making sure you have good ventilation during use of the product. o Most EPA-registered household disinfectants should be effective. When you can be around others (end home isolation) depends on different factors for different situations. If you think or know you have COVID-19, and you had symptoms you can be with others after ??? 24 hours with no fever (without the use of fever reducing medications) AND ??? Respiratory symptoms have improved (cough, shortness of breath) AND ??? 10 days since symptoms first appeared. ??? Loss of taste and smell may persist for weeks or months after recovery and need not delay the end of isolation If you tested positive for COVID-19 but had no symptoms you can be with others after ??? 10 days have passed since the test. ??? If you develop symptoms after testing positive, follow the guidance above for I think or I know I had COVID, and I had symptoms . If you have a weakened immune system due to a health condition or medication you can be around others ??? People with conditions that weaken their immune system might need to stay home longer than 10 days. Talk to your healthcare provider for more information. If you have been around a person with COVID-19 ??? New options to reduce quarantine - Reducing the length of quarantine may make it easier for people to quarantine by reducing the time they cannot work. New CDC recommendations suggest you can return to work ??? On day 10 without testing ??? On day 7 after receiving a negative test result (test must occur on day 5 or later) After stopping quarantine, you should ??? Watch for symptoms until 14 days after exposure. ??? If you have symptoms, immediately self-isolate and contact your local public health authority or healthcare provider. ??? Wear a mask, stay at least 6 feet from others, wash their hands, avoid crowds, and take other steps to prevent the spread of COVID-19. CDC continues to endorse quarantine for 14 days based on the time it takes to develop illness/symptoms and recognizes that any quarantine shorter than 14 days balances reduced burden against a small possibility of spreading the virus. CDC will continue to evaluate new information and update recommendations as needed. ??? If you live with someone positive for COVID-19, and you are unable to avoid close contact, you should quarantine for the 7 to 10 days AFTER the person who has COVID-19 meets the criteria to end home isolation. However, anyone who has had close contact with someone with COVID-19 and who: ??? developed COVID-19 illness within the previous 3 months AND ??? has recovered AND ??? remains without COVID-19 symptoms (for example, cough, shortness of breath) does not need to stay home. In all cases, follow the guidance of your healthcare provider and local health department regardingquarantine guidelines. The decision to stop home isolation should be made in consultation with yourhealthcare provider and state and local health departments. Local decisions depend on local circumstances. The above information is from the CDC website on May 05, 2020. Page was last reviewed: May 02, 2020. Additional information and resources about COVID-19 symptoms, testing, self- isolation, how to prevent spread, and more are available at: https://www.cdc.gov/coronavirus documented in this encounter Ordered Prescriptions Prescription Sig Dispense Quantity Refills Last Filled Start Date End Date amoxicillin (amoxicillin) 500 mg tablet/capsule Take 1 tablet/caps ule (500 mg total) by mouth 2 (two) times a day for 10 days 20 tablet/capsule 12/31/2020 01/10/2021 documented in this encounter Progress Notes * Giuliana Gauthier NP - 12/31/2020 10:45 AM CDT Images from the original note were not included. Patient ID: Blank Cowan is a 55 y.o. female followed by Kaveh Loza MD Chief Complaint Patient presents with ??? COVID-19 EVALUATION Pt c/o sore throat and no taste x2 days Presents to [facility] with c/o sore throat, fevers and no taste x1 day. Denies difficulty swallowing and shortness of breath. OTC- Tylenol for fevers Review of Systems Constitutional: Positive for fatigue and fever. Negative for chills. HENT: Positive for sore throat. Negative for congestion, ear pain, postnasal drip, rhinorrhea and trouble swallowing. Respiratory: Negative for cough, chest tightness, shortness of breath and wheezing. Cardiovascular: Negative for chest pain. Neurological: Negative for headaches. Loss of taste Vitals: 12/31/20 1053 BP: 98/70 BP Location: Right arm Patient Position: Sitting Pulse: 79 Resp: 18 Temp: 36.8 ??C (98.3 ??F) TempSrc: Oral SpO2: 97% Recent Results (from the past 24 hour(s)) COVID-19 POC Collection Time: 12/31/20 11:05 AM Result Value Ref Range COVID-19 Ag POC Presumptive Negative Presumptive Negative, Invalid POCT rapid strep A Collection Time: 12/31/20 11:05 AM Result Value Ref Range Rapid Strep A, POC Positive Physical Exam Vitals reviewed. Constitutional: Appearance: She is well-developed. HENT: Right Ear: Tympanic membrane and external ear normal. Tympanic membrane is not injected, erythematous or bulging. Left Ear: Tympanic membrane and external ear normal. Tympanic membrane is not injected, erythematous or bulging. Nose: Right Sinus: No maxillary sinus tenderness or frontal sinus tenderness. Left Sinus: No maxillary sinus tenderness or frontal sinus tenderness. Mouth/Throat: Lips: [place]. Mouth: Mucous membranes are moist. Tongue: Lesions (apthous ulcer left lateral aspect) present. Pharynx: Posterior oropharyngeal erythema present. Tonsils: No tonsillar exudate. 1+ on the right. 1+ on the left. Comments: Eyes: Conjunctiva/sclera: Conjunctivae normal. Cardiovascular: Rate and Rhythm: Normal rate and regular rhythm. Pulmonary: Effort: Pulmonary effort is normal. Breath sounds: Normal breath sounds. No wheezing or rhonchi. Musculoskeletal: General: Normal range of motion. Lymphadenopathy: Head: Right side of head: No tonsillar adenopathy. Left side of head: Tonsillar adenopathy present. Skin: General: Skin is warm and dry. Neurological: Mental Status: She is alert and oriented to person, place, and time. Diagnoses and all orders for this visit: Strep pharyngitis (Primary) - COVID-19 POC - POCT rapid strep A Other orders - amoxicillin (amoxicillin) 500 mg tablet/capsule; Take 1 tablet/capsule (500 mg total) by mouth 2 (two) times a day for 10 days Orders Placed This Encounter Procedures ??? COVID-19 POC Order Specific Question: Is the Patient experiencing symptoms consistent with COVID? Answer: Yes Order Specific Question: Date of Symptom Onset Answer: 12/29/2020 Order Specific Question: Is the patient hospitalized? Answer: No Order Specific Question: Is the patient admitted to an ICU? Answer: No Order Specific Question: Is this the first COVID-19 test for this patient? Answer: Unknown Order Specific Question: Does the patient currently work in a healthcare facility with direct patient contact? Answer: No Order Specific Question: Is the patient a resident of a congregate care or living setting? Answer: No Order Specific Question: Is the patient ? Answer: No ??? POCT rapid strep A Assessment/Plan Lungs CTA, O2 Saturation @97 %/RA, low suspicion for pneumonia at this time. Will recommend supportive care for symptoms with f/u precautions including signs/symptoms warranting ER evaluation. ??? Discussed home self-care, follow up needs, and signs and symptoms that warrant immediate medical attention/ER evaluation including worsening fever, increased shortness of breath, severe N/V/D, orany other worrisome symptoms ??? Reviewed isolation/quarantine protocols ??? Discussed symptomatic relief of symptoms ??? Advised to rest and increase oral fluid intake ??? Advised to stay out of work and work release given explaining when patient can return to work Patient Education The rapid strep test performed at the [facility] today was positive. The following is recommended treatment for Strep pharyngitis (strep throat) ??? Complete antibiotic as prescribed ??? Take Tylenol or Motrin for fever/pain ??? Gargle with warm salt water (1tsp salt/1 cup water) or warm tea with honey and lemon to soothe pain ??? Suck on ice chips, popsicles, cough drops, or throat lozenges ??? You may return to work, daycare, or school 24 hours after starting antibiotics and you are fever free without use of Tylenol or Motrin. ??? Strep pharyngitis is contagious. Do not share food, drinks, or utensils ??? Replace your toothbrush within 48 hours after starting antibiotics. If signs/symptoms do not improve or worsen, follow up with your PCP. The rapid COVID antigen test performed in clinic today was negative. Testing is not 100% accurate. Due to your symptoms, the CDC advises to self isolate until at least 10 days have passed since symptom onset, your symptoms have improved, and you have been fever free without the use of fever reducing medications for at least 24 hours. Although you have not been diagnosed with COVID-19, your presenting symptoms could be indicative ofCOVID infection and it is recommended that you stay home for recovery at this time. You may use acetaminophen and/or ibuprofen to control pain and fever. If you have chronic liver disease, have ever had a stomach ulcer or gastrointestinal bleeding talk with your healthcare provider before using these medicines. Aspirin should never be given to anyone under 18 years of age who is ill with a viral infection or fever. It may cause severe liver or brain damage. Your appetite may be poor, so a light diet is ok. Stay well hydrated by drinking 6 to 8 glasses of fluids per day (water, soft drinks, juices, tea, or soup). Extra fluids will help loosen secretions in the nose and lungs. Nlsc-ajs-myfhfjv cold medicines will not shorten the length of time you???re sick, but they may be helpful for relieving the following symptoms: headache, cough, sore throat, and nasal and sinus congestion. If you take prescription medicines, ask your healthcare provider or pharmacist which guiz-sig-nspkoub medicines are safe to use. (Note: DO NOT use decongestants if you have high blood pressure.) Steps to help prevent the spread of COVID-19 if you are sick If you are sick with COVID-19 or think you might have COVID-19, follow the steps below to care for yourself and to help protect other people in your home and community. Stay home except to get medical care ??? Most people with COVID-19 have mild illness and are able to recover at home without medical care. Do not leave your home, except to get medical care. Do not visit public areas. ??? Take care of yourself. Get rest and stay hydrated. Take bqjg-wux-ectwwua medicines to help you feel better. ??? Stay in touch with your doctor. Call before you get medical care. Be sure to get care if you have trouble breathing, or have any other emergency warning signs, or if you think it is an emergency. ??? Avoid using public transportation, ride-sharing, or taxis. Monitor your symptoms ??? Symptoms of COVID-19 include fever, cough, shortness of breath or difficulty breathing, fatigue, muscle or body aches, headache, new loss of taste or smell, sore throat, congestion, runny nose, nausea, vomiting, or diarrhea. When to Seek Medical Attention If you develop emergency warning signs for COVID-19 get medical attention immediately. Emergency warning signs include*: ??? Trouble breathing ??? Persistent pain or pressure in the chest ??? New confusion or inability to arouse ??? Bluish lips or face *This list is not all inclusive. Please consult your medical provider for any other symptoms that are severe or concerning. Call 911 if you have a medical emergency: If you have a medical emergency and need to call 911, notify the dredge operator that you have or think you might have, COVID-19. If possible, put on a facemask before medical help arrives. Separate yourself from other people in your home, this is known as home isolation ??? As much as possible, you should stay away from other people and pets in your home. You should stay in a specific ???sick room?? if possible. Use a separate bathroom, if available. If you need eloisa around other people or animals in or outside of the home, wear a mask For more information on sharing close living quarters with someone who is sick visit https://www.cdc .gov/coronavirus/2019-ncov/nbadx-qjky-uxsqdh/secwkh-ki-nscib-quarters.html For more information on COVID-19 and pets visit https://www.cdc.gov/coronavirus/2019-ncov/faq.html Call ahead before visiting your doctor ??? Many medical visits for routine care are being postponed or done by phone or telemedicine. ??? If you have a medical appointment that cannot be postponed, call your doctor???s office, and tell them you have or may have COVID-19. This will help the office protect themselves and other patients. If you are sick wear a face mask over your nose and mouth in the following situations ??? You should wear a face mask over your nose and mouth if you must be around other people or animals, including pets (even at home). ??? You don't need to wear the face mask if you are alone. If you can't put on a face mask (becauseof trouble breathing, for example), cover your coughs and sneezes in some other way (tissue or inner elbow). Try to stay at least 6 feet away from other people. This will help protect the people around you. ??? Face masks should not be placed on children under 2 years old, anyone who has trouble breathing, or anyone who is not able to remove the covering without help. Cover your coughs and sneezes ??? Cover your mouth and nose with a tissue or the inside of your elbow when you cough or sneeze. ??? Throw used tissues in a lined trash can. ??? Immediately wash your hands with soap and water for at least 20 seconds. If soap and water are not available, clean your hands with an alcohol-based hand field sales specialist that contains at least 60% alcohol. Clean your hands often ??? Wash your hands often with soap and water for at least 20 seconds. This is especially importantafter blowing your nose, coughing, or sneezing; going to the bathroom; and before eating or preparing food. ??? Use hand field sales specialist if soap and water are not available. Use an alcohol-based hand field sales specialist with at least 60% alcohol, covering all surfaces of your hands and rubbing them together until they feel dry. ??? Soap and water are the best option, especially if hands are visibly dirty. ??? Avoid touching your eyes, nose, and mouth especially with unwashed hands. Avoid sharing personal household items ??? Do not share dishes, drinking glasses, cups, eating utensils, towels, or bedding with other people in your home. ??? After using these items, wash them thoroughly with soap and water or put them in the telephone order supervisor. Clean all ???high-touch?? surfaces everyday. High-touch surfaces include phones, remote controls, counters, tabletops, doorknobs, bathroom fixtures, toilets, keyboards, tablets, and bedside tables. ??? Clean and disinfect high-touch surfaces in your ???sick room?? and bathroom everyday while wearing disposable gloves. Let someone else clean and disinfect surfaces in common areas, but not your bedroom and bathroom. ??? If a caregiver or other person needs to clean and disinfect a sick person???s bedroom or bathroom, they should do so on an as-needed basis. The caregiver/other person should wear a mask and disposable gloves prior to cleaning.They should wait as long as possible after the sick person has used the bathroom before coming in to clean and use the bathroom. ??? Clean and disinfect areas that may have blood, stool, or body fluids on them. ??? Clean the area or item with soap and water or another detergent if it is dirty. Then, use a household disinfectant. o Be sure to follow the instructions on the label to ensure safe and effective use of the product. Many products recommend keeping the surface wet for several minutes to ensure germs are killed. Manyalso recommend precautions such as wearing gloves and making sure you have good ventilation during use of the product. o Most EPA-registered household disinfectants should be effective. When you can be around others (end home isolation) depends on different factors for different situations. If you think or know you have COVID-19, and you had symptoms you can be with others after ??? 24 hours with no fever (without the use of fever reducing medications) AND ??? Respiratory symptoms have improved (cough, shortness of breath) AND ??? 10 days since symptoms first appeared. ??? Loss of taste and smell may persist for weeks or months after recovery and need not delay the end of isolation If you tested positive for COVID-19 but had no symptoms you can be with others after ??? 10 days have passed since the test. ??? If you develop symptoms after testing positive, follow the guidance above for I think or I know I had COVID, and I had symptoms . If you have a weakened immune system due to a health condition or medication you can be around others ??? People with conditions that weaken their immune system might need to stay home longer than 10 days. Talk to your healthcare provider for more information. If you have been around a person with COVID-19 ??? New options to reduce quarantine - Reducing the length of quarantine may make it easier for people to quarantine by reducing the time they cannot work. New CDC recommendations suggest you can return to work ??? On day 10 without testing ??? On day 7 after receiving a negative test result (test must occur on day 5 or later) After stopping quarantine, you should ??? Watch for symptoms until 14 days after exposure. ??? If you have symptoms, immediately self-isolate and contact your local public health authority or healthcare provider. ??? Wear a mask, stay at least 6 feet from others, wash their hands, avoid crowds, and take other steps to prevent the spread of COVID-19. CDC continues to endorse quarantine for 14 days based on the time it takes to develop illness/symptoms and recognizes that any quarantine shorter than 14 days balances reduced burden against a small possibility of spreading the virus. CDC will continue to evaluate new information and update recommendations as needed. ??? If you live with someone positive for COVID-19, and you are unable to avoid close contact, you should quarantine for the 7 to 10 days AFTER the person who has COVID-19 meets the criteria to end home isolation. However, anyone who has had close contact with someone with COVID-19 and who: ??? developed COVID-19 illness within the previous 3 months AND ??? has recovered AND ??? remains without COVID-19 symptoms (for example, cough, shortness of breath) does not need to stay home. In all cases, follow the guidance of your healthcare provider and local health department regardingquarantine guidelines. The decision to stop home isolation should be made in consultation with yourhealthcare provider and state and local health departments. Local decisions depend on local circumstances. The above information is from the CDC website on May 05, 2020. Page was last reviewed: May 02, 2020. Additional information and resources about COVID-19 symptoms, testing, self- isolation, how to prevent spread, and more are available at: https://www.cdc.gov/coronavirus documented in this encounter Plan of Treatment Not on file documented as of this encounter Procedures Procedure Name Priority Date/Time Associated Diagnosis Comments COVID-19 POC Routine 12/31/2020 11:05 AM CDT Strep pharyngitis POCT RAPID STREP Routine 12/31/2020 11:0 5 AM CDT Strep pharyngitis documented in this encounter Results * (ABNORMAL) POCT rapid strep A (12/31/2020 11:05 AM CDT) Rapid Strep A, POC Positive Swab 12/31/2020 11:0 5 AM CDT Giuliana Gauthier CREATIVE CONSULTANT POINT OF CARE TEST ORDER NUPUR Final Result * COVID-19 POC (12/31/2020 11:05 AM CDT) COVID-19 Ag POC (BD Veritor) Presumptive Negative Presumptive Negative, Invalid [facility] Nasal 12/31/2020 11:0 5 AM CDT Giuliana Gauthier CREATIVE CONSULTANT POINT OF CARE TEST ORDER NUPUR Final Result [facility] [id number] [facility] [place] [address] [place] [address] documented in this encounter Visit Diagnoses Diagnosis Strep pharyngitis- Primary documented in this encounter Additional Health Concerns Infection Onset Date Last Indicated Resolved Time COVID: Suspected 12/31/2020 12/31/2020 12/31/2020 11:06 AM CDT documented as of this encounter Care Teams Corrugated Sheet Material Sheeter Relationship Specialty Start Date End Date Kaveh Loza MD PCP - General Internal Medicine 09/15/17 documented as of this encounter
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
--- OUTSIDE RECORDS SUMMARY | 2024-06-12 04:24 | XMS_ITS | Encounter Summary ---
Author Organization [facility] Healthcare Address [address] [place] [address] Care Team Providers Care Locker Attendant Name Role Phone Kaveh Loza MD Primary Care Provider [phone] Reason for Visit * Reason Comments Flank Pain Encounter Details Date Type Department Care Team (Late st Contact Info) Description 01/16/2020 12:16 PM CDT - 01/16/2020 3:10 PM CDT Emergency [facility] Emergency Department [address] [place] [address] Ashwin Hester MD [address] [place] [id number] Low back pain without sciatica, unspecified back pain laterality, unspecified chronicity (Primary Dx) Discharge Disposition: Discharge to home [...] on file 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 Gender Identity Not on file Sexual Orientation Not on file documented as of this encounter Last Filed Vital Signs Vital Sign Reading Time Taken Comments Blood Pressure 99/67 01/16/2020 2:30 PM CDT Pulse 60 01/16/2020 2:30 PM CDT Temperature 36.7 ??C (98.1 ??F) 01/16/2020 1:23 PM CD T Respiratory Rate 15 01/16/2020 2:30 PM CDT Oxygen Saturation 98% 01/16/2020 2:30 PM CDT Inhaled Oxygen Concentration - - Weight 77.1 kg (170 lb) 01/16/2020 11:12 AM CDT Height 160 cm (5' 3 ) 01/16/2020 11:12 AM CDT Body Mass Index 30.11 01/16/2020 11:12 AM CDT documented in this encounter Discharge Diagnoses Diagnosis Low back pain - LOW BACK PAIN Lumbago Mild intermittent asthma, uncomplicated - MILD INTERMITTENT ASTHMA, UNCOMPLICATED Personal history of nicotine dependence - PERSONAL HISTORY OF NICOTINE DEPENDENCE documented in this encounter Discharge Instructions * Attachments The following attachments cannot be sent through Care Everywhere. * Back and Neck Pain, General (Wallisian) documented in this encounter Medications at Time of Discharge azithromycin (ZITHROMAX) 250 mg tabletIndications :Chronic laryngitis Take 2 tablets the first day, then 1 tablet daily for 4 days. 6 tablet 05/07/2019 cyclobenzaprine (FLEXERIL) 5 mg tablet Take 1 tablet (5 mg total) by mouth 3 (three) times a day as needed for muscle spasms 30 tablet 01/16/2020 naproxen (NAPROSYN) 500 mg tablet Take 1 tablet (500 mg total) by mouth 2 (two) times a day with meals 14 tablet 01/16/2020 predniSONE (DELTASONE) 10 mg tablet Take 6 [...] (three) times a day 21 tablet 12/10/2018 famotidine (PEPCID) 40 mg tabletIndications :Laryngopharyngea l reflux (LPR) Take 1 tablet (40 mg total) by mouth nightly 90 tablet 3 05/07/2019 01/14/2022 documented as of this encounter Ordered Prescriptions Prescription Sig Dispense Quantity Refills Last Filled Start Date End Date naproxen (NAPROSYN) 500 mg tablet Take 1 tablet (500 mg total) by mouth 2 (two) times a day with meals 14 tablet 01/16/2020 cyclobenzaprine (FLEXERIL) 5 mg tablet Take 1 tablet (5 mg total) by mouth 3 (three) times a day as needed for muscle spasms 30 tablet 01/16/2020 documented in this encounter Discharge Disposition Disposition Code Departure Means Destination Discharge to home or self care documented in this encounter ED Notes * Ashwin Hester MD - 01/16/2020 12:24 PM CDT HPI Chief Complaint Patient presents with ??? Flank Pain 12:24 PM Blank Cowan is a 54 y.o. female with medical history of sepsis and cholecystitis presenting to the ED complaining of intermittent right flank pain onset this morning. Patient states she may have a kidney stone because she has a family history of nephrolithiasis. She reports difficulty urinating and decreased urine output. She denies blood in her urine or stool at this time. History provided by: Patient bottom brusher used: No Patient History Patient Active Problem List Diagnosis Date Noted ??? Chronic laryngitis 05/07/2019 ??? Laryngopharyngeal reflux (LPR) 05/07/2019 ??? Sepsis (CMS/HCC) 09/16/2017 ??? Community acquired pneumonia of left lower lobe of lung 09/16/2017 ??? Hypotension 09/16/2017 ??? No pathologic [...] Social History Social History Narrative Works at [employer] Review of Systems Review of Systems Constitutional: Negative for chills and fever. HENT: Negative for ear pain and sore throat. Eyes: Negative for pain and visual disturbance. Respiratory: Negative for cough and shortness of breath. Cardiovascular: Negative for chest pain and palpitations. Gastrointestinal: Negative for abdominal pain, blood in stool and vomiting. Right flank pain Genitourinary: Positive for difficulty urinating. Negative for dysuria and hematuria. Musculoskeletal: Negative for arthralgias and back pain. Skin: Negative for color change and rash. Neurological: Negative for seizures and syncope. All other systems reviewed and are negative. Physical Exam ED Triage Vitals Temp Pulse Resp BP SpO2 01/16/20 1112 01/16/20 1112 01/16/20 1112 01/16/20 1115 01/16/20 1112 36.8 ??C (98.3 ??F) 80 18 (!) 144/101 98 % Temp src Heart Rate Source Patient Position BP Location FiO2 (%) 01/16/20 1112 -- -- -- -- Temporal Physical Exam Vitals signs and nursing note reviewed. Constitutional: Appearance: Normal appearance. HENT: Head: Normocephalic and atraumatic. Nose: Nose normal. Mouth/Throat: Mouth: Mucous membranes are moist. Eyes: Extraocular Movements: Extraocular movements intact. Pupils: Pupils are equal, round, and reactive to light. Neck: Musculoskeletal: Normal range of motion. Cardiovascular: Rate and Rhythm: Normal rate and regular rhythm. Pulses: Normal pulses. Heart sounds: Normal heart sounds. Pulmonary: Effort: Pulmonary effort is normal. Breath sounds: Normal breath sounds. Abdominal: General: Abdomen is flat. Palpations: Abdomen is soft. Tenderness: There is no abdominal tenderness. Musculoskeletal: Normal range of motion. Skin: General: Skin is warm. Capillary Refill: Capillary refill takes less than 2 seconds. Neurological: General: No focal deficit present. Mental Status: She is alert and oriented to person, place, and time. [facility] Labs Reviewed URINALYSIS AND REFLEX TO MICROSCOPIC AND CULTURE - Abnormal Result Value Color, ur Yellow Clarity, ur Clear Specific gravity, ur 1.021 pH, urine 5.5 Protein, ur ql Negative Glucose, ur ql Negative Ketones, ur Negative Bilirubin, ur Negative Blood, ur Negative Urobilinogen, ur <2.0 Nitrite, ur Negative Leukocyte esterase, ur 3+ (*) UA reflex comment Reflex to microscopic UA will be performed. Narrative: Urine pH is affected by diet, medications, systemic acid-base disturbances, and renal tubular function. pH may affect urinary stone formation. For example, urine pH below 6.0 may help reduce the tendency for calcium phosphate stones and pH greater than 6.0 may reduce the tendency for uric acid stone formation. Source: [place] Medication Review.Last revised 06-09-2017 CBC WITH AUTO DIFFERENTIAL - Abnormal WBC 7.1 Hgb 14.2 Hct 41.8 Plt 281 MPV 8.9 (*) RBC 4.76 MCV 87.8 MCH 29.8 MCHC 34.0 RDW CV 12.7 RDW SD 41.2 NRBC abs 0.00 URINALYSIS, MICROSCOPIC ONLY - Abnormal WBC, ur 0-5 RBC, ur 0-2 Epithelial cells, squamous, ur 1-5 Mucous, ur Present (*) Culture Reflex Comment Value: Reflex conditions for urine culture (WBC >10) not met. COMPREHENSIVE METABOLIC PANEL Sodium 136 Potassium, pl 4.2 Chloride 103 CO2 22 Anion gap 11 BUN 17 Creatinine 0.75 Glucose 90 Calcium 9.9 Bilirubin, total 0.3 Protein, pl 7.3 Albumin 4.3 Alk phos 70 ALT 38 AST 31 DIFFERENTIAL AUTO Neutrophil abs 4.5 Imm gran abs 0.0 Lymphocyte abs 1.8 Monocyte abs 0.5 Eosinophil abs 0.2 Basophil abs 0.1 Neutrophil pct 63.1 Imm gran pct 0.1 Lymphocyte pct 25.5 Monocyte pct 7.1 Eosinophil pct 3.4 Basophil pct 0.[address] KUB Stone WO Contrast Final Result 1. No obstructing urolithiasis or hydronephrosis. 2. Normal appendix. 3. Diffuse hepatic steatosis. Electronically signed by: Giovanni Cota M.D. BP 99/67 Pulse 60 Temp 36.7 ??C (98.1 ??F) Resp 15 Ht 160 cm (5' 3 ) Wt 77.1 kg (170 lb) SpO2 98% BMI 30.11 kg/m?? Procedures MDM ED Course as of Jan 16 2319 Time: 01/15 1454 Comment: Informed pt about her lab , CT findings, her pain is most likely Musculoskeletal , I advised her to take pain meds as prescribed . By: Ashwin Hester MD Final diagnoses: Low back pain without sciatica, unspecified back pain laterality, unspecified chronicity Tree Mccormack scribed for Ashwin Hester MD in the doctor's presence. I electronically signed this note at 11:19 PM on 01/17/2020. I, Ashwin Hester MD, have personally performed the services described in the documentation , reviewed the documentation, as recorded by the scribe in my presence, and it accurately and completely records my words and actions. Ashwin Hester MD 01/16/201453 Ashwin Hester MD 01/17/202318 * Autumn Shay RN - 01/16/2020 11:10 AM CDT Pt reporting intermittent right flank pain that radiates to her abdomen starting yesterday. Pt reporting difficulty urinating. Pt appears to be in a significant amount of pain. Pt is hunched over andbreathing heavily in triage room documented in this encounter Plan of Treatment Not on file documented as of this encounter Procedures Procedure Name Priority Date/Time Associated Diagnosis Comments CT KUB STONE WO CONTRAST ED 01/16/2020 12:48 PM CDT EGFR STAT 01/16/2020 12:39 PM CDT DIFFERENTIAL AUTO STAT 01/16/2020 12: 39 PM CDT CBC WITH AUTO DIFFERENTIAL STAT 01/16/2020 12:39 PM CDT COMPREHENSIVE METABOLIC PANEL STAT 01/16/2020 12:39 PM CDT URINALYSIS AND REFLEX TO MICROSCOPIC AND CULTURE STAT 01/16/2020 11:44 AM CDT URINALYSIS, MICROSCOPIC ONLY STAT 01/16/2020 11:44 AM CDT documented in this encounter Results * CT KUB Stone WO Contrast (01/16/2020 12:48 PM CDT) Anatomical Region Laterality Modality Abdomen N/A Computed Tomogra phy 01/16/2020 1:01 PM CDT Impressions 01/16/2020 1:10 PM CDT 1. ??No obstructing urolithiasis or hydronephrosis. 2. ??Normal appendix. 3. Diffuse hepatic steatosis. Electronically signed by: Giovanni Cota M.D. Narrative 01/16/2020 1:10 PM CDT EXAMINATION: CT KUB STONE WO CONTRAST ORDERING HEALTHCARE PROVIDER: ASHWIN HESTER HISTORY: Flank pain, kidney stone suspected. Pt reporting intermittent right flank pain that radiates to her abdomen starting yesterday. Pt reporting difficulty urinating. Pt appears to be in a significant amount of pain. Pt is hunched over and breathing heavily in triage room ?? TECHNIQUE: CT abdomen and pelvis without intravenous and without oral contrast. ??Reconstructed coronal and sagittal MPR images reviewed. All images stored on PACS. ??Automated exposure control was used as a dose optimization technique for this examination. COMPARISON: None available FINDINGS: The sensitivity for detection of visceral lesions is diminished without the use of intravenous contrast. LOWER CHEST: The lung bases are clear. The heart is normal in size without pericardial effusion. LIVER: Diffuse hepatic steatosis. 13.1 cm length. GALLBLADDER: Absent. SPLEEN: Normal length. PANCREAS: No peripancreatic inflammation. ADRENALS: No discrete nodules. KIDNEYS/URINARY TRACT: No obstructing urolithiasis or hydronephrosis. GI: No bowel obstruction. Normal appendix. Colonic diverticula without acute diverticulitis. PERITONEUM: No free intraperitoneal air or ascites. VASCULATURE: No abdominal aortic aneurysm. MUSCULOSKELETAL: No acute findings. OTHER: No other acute findings. Procedure Note Giovanni Cota MD - 01/16/2020 EXAMINATION: CT KUB STONE WO CONTRAST ORDERING HEALTHCARE PROVIDER: ASHWIN HESTER HISTORY: Flank pain, kidney stone suspected. Pt reporting intermittent right flank pain that radiates to her abdomen starting yesterday. Pt reporting difficulty urinating. Pt appears to be in a significant amount of pain. Pt is hunched over and breathing heavily in triage room TECHNIQUE: CT abdomen and pelvis without intravenous and without oral contrast. Reconstructed coronal and sagittal MPR images reviewed. All images stored on PACS. Automated exposure control was used as a dose optimization technique for this examination. COMPARISON: None available FINDINGS: The sensitivity for detection of visceral lesions is diminished without the use of intravenous contrast. LOWER CHEST: The lung bases are clear. The heart is normal in size without pericardial effusion. LIVER: Diffuse hepatic steatosis. 13.1 cm length. GALLBLADDER: Absent. SPLEEN: Normal length. PANCREAS: No peripancreatic inflammation. ADRENALS: No discrete nodules. KIDNEYS/URINARY TRACT: No obstructing urolithiasis or hydronephrosis. GI: No bowel obstruction. Normal appendix. Colonic diverticula without acute diverticulitis. PERITONEUM: No free intraperitoneal air or ascites. VASCULATURE: No abdominal aortic aneurysm. MUSCULOSKELETAL: No acute findings. OTHER: No other acute findings. IMPRESSION: 1. No obstructing urolithiasis or hydronephrosis. 2. Normal appendix. 3. Diffuse hepatic steatosis. Electronically signed by: Giovanni Cota M.D. Ashwin Hester MD IMG CT PROCEDURES Final Result * eGFR (01/16/2020 12:39 PM CDT) eGFR 89 mL/min/1.7 3 m2 [facility] ([place]) Comment: Interpretive Data Reference Interval Normal ?>/= 90 mL/min/1.73m2 Mildly decreased* ? 60 - 89 mL/min/1.73m2 Mildly to moderately decreased ?45 - 59 mL/min/1.73m2 Moderately to severely decreased ??30 - 44 mL/min/1.73m2 Severely decreased ?15 - 29 mL/min/1.73m2 Kidney Failure ?< 15 ??mL/min/1.73m2 *Relative to young adult level If -Pakistani multiply value by 1.16. Estimated glomerular filtration [...] was last reviewed 2015. Blood specimen (specimen) 01/16/2020 12:39 PM CDT 01/16/2020 12:42 PM CDT us Pete Cunha MD LAB BLOOD ORDERABLES Final R esult [facility] ([place]) [facility] Department [place] [address] * Differential, auto (01/16/2020 12:39 PM CDT) Neutrophil abs 4.5 1.7 - 6.5 K/cumm [facility] ([place]) Imm gran abs 0.0 0.0 - 0.1 K/cumm [facility] ([place]) Lymphocyte abs 1.8 0.8 - 3.3 K/cumm [facility] ([place]) Monocyte abs 0.5 0.2 - 0.8 K/cumm [facility] ([place]) Eosinophil abs 0.2 0.0 - 0.5 K/cumm [facility] ([place]) Basophil abs 0.1 0.0 - 0.1 K/cumm [facility] ([place]) Neutrophil pct 63.1 % [facility] ([place]) Comment: Interpretive Data Percent cell count reference ranges are not reported, since discordance with absolute values may lead to misinterpretation of CBC data. Current Interpretive Data was last revised on 2017. Imm gran pct 0.1 % [facility] ([place]) Comment: Interpretive Data Percent cell count reference ranges are not reported, since discordance with absolute values may lead to misinterpretation of CBC data. Current Interpretive Data was last revised on 2017. Lymphocyte pct 25.5 % [facility] ([place]) Comment: Interpretive [...] was last revised on 2017. Eosinophil pct 3.4 % [facility] ([place]) Comment: Interpretive Data Percent cell count reference ranges are not reported, since discordance with absolute values may lead to misinterpretation of CBC data. Current Interpretive Data was last revised on 2017. Basophil pct 0.8 % [facility] ([place]) Comment: Interpretive Data Percent cell count reference ranges are not reported, since discordance with absolute values may lead to misinterpretation of CBC data. Current Interpretive Data was last revised on 2017. Blood specimen (specimen) 01/16/2020 12:39 PM CDT 01/16/2020 12:42 PM CDT us Pete Cunha MD LAB BLOOD ORDERABLES Final R esult [facility] ([place]) [facility] Department [place] [address] * Comprehensive metabolic panel (01/16/2020 12:39 PM CDT) Sodium 136 135 - 145 mmol/L [facility] ([place]) Potassium, pl 4.2 3.3 - 4.9 mmol/L [facility] ([place]) Chloride 103 97 - 110 mmol/L [facility] ([place]) CO2 22 22 - 32 mmol/L [facility] ([place]) Anion gap 11 2 - 15 mmol/L [facility] ([place]) BUN 17 8 - 25 mg/dL [facility] ([place]) Creatinine 0.75 0.60 - 1.10 mg/dL [facility] ([place]) Glucose 90 70 - 199 mg/dL [facility] ([place]) [...] interpretive data was last revised 2017. Calcium 9.9 8.5 - 10.3 mg/dL [facility] ([place]) Bilirubin, total 0.3 0.1 - 1.2 mg/dL [facility] ([place]) Protein, pl 7.3 6.5 - 8.5 g/dL [facility] ([place]) Albumin 4.3 3.5 - 5.0 g/dL [facility] ([place]) Alk phos 70 40 - 130 Units/L [facility] ([place]) ALT 38 7 - 45 Units/L [facility] ([place]) AST 31 10 - 45 Units/L [facility] ([place]) Blood specimen (specimen) 01/16/2020 12:39 PM CDT 01/16/2020 12:42 PM CDT us Ashwin Hester MD LAB BLOOD ORDERABLES Final Res ult [facility] ([place]) [facility] Department [place] [address] * (ABNORMAL) CBC with auto differential (01/16/2020 12:39 PM CDT) Pathologist [facility] WBC 7.1 3.8 - 9.9 K/cumm [facility] ([place]) Hgb 14.2 11.9 - 15.5 g/dL [facility] ([place]) Hct 41.8 35.6 - 45.5 % [facility] ([place]) Plt 281 150 - 400 K/cumm [facility] ([place]) MPV 8.9(L) 9.1 - 12.3 fL [facility] ([place]) RBC 4.76 3.90 - 5.20 M/cumm [facility] ([place]) MCV 87.8 81.3 - 96.4 fL [facility] ([place]) MCH 29.8 27.1 - 33.3 pg [facility] ([place]) MCHC 34.0 32.3 - 35.7 g/dL [facility] ([place]) RDW CV 12.7 11.1 - 14.9 % [facility] ([place]) RDW SD 41.2 35.7 - 48.1 fL [facility] ([place]) NRBC abs 0.00 0.00 - 0.01 K/cumm [facility] ([place]) Blood specimen (specimen) 01/16/2020 12:39 PM CDT 01/16/2020 12:42 PM CDT Ashwin Hester MD LAB BLOOD ORDERABLES Final Res ult [facility] ([place]) [facility] Department [place] [address] * (ABNORMAL) Urinalysis, microscopic only (01/16/2020 11:44 AM CDT) Pathologist [facility] WBC, ur 0-5 0 - 5 /HPF [facility] ([place]) RBC, ur 0-2 0 - 2 /HPF [facility] ([place]) Epithelial cells, squamous, ur 1-5 0 - 5 /HPF [facility] ([place]) Mucous, ur Present(A) [facility] ([place]) Culture Reflex Comment Reflex conditions for urine culture (WBC >10) not met. [facility] ([place]) Urine, bladder 01/16/2020 11 :44 AM CDT 01/16/2020 11:48 AM CDT us Ashwin Hester MD LAB URINE ORDERABLES Final Res ult [facility] ([place]) [facility] Department [place] [address] * (ABNORMAL) Urinalysis reflex to microscopic and culture Urine, bladder (01/16/2020 11:44 AM CDT) Color, ur Yellow Yellow [facility] ([place]) Clarity, ur Clear Clear [facility] ([place]) Specific gravity, ur 1.021 1.010 - 1.025 [facility] ([place]) pH, urine 5.5 [facility] ([place]) Protein, ur ql Negative Negative [facility] ([place]) Glucose, ur ql Negative Negative [facility] ([place]) Ketones, ur Negative Negative [facility] ([place]) Bilirubin, ur Negative Negative [facility] ([place]) Blood, ur Negative Negative [facility] ([place]) Urobilinogen, ur <2.0 <2.0 mg/dL [facility] ([place]) Nitrite, ur Negative Negative [facility] ([place]) Leukocyte esterase, ur 3+(A) Negative [facility] ([place]) UA reflex comment Reflex to microscopic UA will be performed. [facility] ([place]) Urine, bladder 01/16/2020 11 :44 AM CDT 01/16/2020 11:48 AM CDT Narrative [facility] ([place]) - 01/16/2020 11:51 AM CDT ?? Urine pH is affected by diet, medications, systemic acid-base disturbances, and renal tubular function. ??pH may affect urinary stone formation. ??For example, urine pH below 6.0 may help reduce the tendency for calcium phosphate stones and pH greater than 6.0 may reduce the tendency for uric acid stone formation. Source: [place]. Last revised 06-09-2017 us Ashwin Hester MD LAB MICROBIOLOGY - GENERAL ORD ERABLES Final Result [facility] ([place]) [facility] Department [place] [address] documented in this encounter Visit Diagnoses Diagnosis Low back pain without sciatica, unspecified back pain laterality, unspecified chronicity- Primary documented in this encounter Administered Medications Inactive Administered Medications - up to 3 most recent administrations Medication Order MAR Action Action Date Dose Rate Site fentaNYL (SUBLIMAZE) preservative free injection 50 mcg 50 mcg, intravenous, Once, On Tue01/16/20 at 1235, For 1 dose Given 01/16/2020 12:38 PM CDT 50 mcg documented in this encounter Active and Recently Administered Medications Times are shown in CDT. Scheduled Medication Order 01/14/2020 01/15/2020 01/16/2020 fentaNYL (SUBLIMAZE) preservative free injection 50 mcg (COMPLETED) 50 mcg, intravenous, Once, On Tue01/16/20 at 1235, For 1 dose 1238 (Given - Provid er: William Salomon RN) documented in this encounter Orders Medications Ordered That Fareed ht Not Have Been Administered Count Last Ordered Date First Ordered Date fentaNYL (SUBLIMAZE) preserv ative free injection 50 mcg 1 01/16/2020 documented in this encounter Care Teams Locker Attendant Relationship Specialty Start Date End Date Kaveh Loza MD PCP - General Internal Medicine 09/15/17 documented as of this encounter
--- OUTSIDE RECORDS SUMMARY | 2024-06-12 04:24 | XMS_ITS | Encounter Summary ---
Author Organization [facility] Healthcare Address [address] [place] [address] Care Team Providers Care Mental Health Advanced Practice Nurse Name Role Phone Unavailable Primary Care Provider Unavailabl e Encounter Details Date Type Department Care Team (Late st Contact Info) Description 03/31/2010 1:43 PM CDT - 03/31/2010 2:25 PM CDT Hospital Encounter [facility] Silvestre Macias MD [address] [facility] [address] [place] [address] Urticaria; Contact dermatitis and other eczema; Other chronic allergic conjunctivitis Social History Tobacco Use Types Packs/Day Years Used Date Smoking Tobacco: Never Assessed Comments Unknown Sex and Gender Information Value Date Recorded Sex Assigned at Not on file 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
--- OUTSIDE RECORDS SUMMARY | 2024-06-12 04:24 | XMS_ITS | Encounter Summary ---
Author Organization [facility] Care Team Providers Care Contact Center Engineer Name Role Phone Kaveh Loza MD Primary Care Provider [phone] Encounter Details Date Type Department Care Team (Latest Contact Info) Description 12/10/2018 Travel Social History Tobacco Use Types Packs/Day Years Used Date Smoking Tobacco: Former Cigarettes 1 5 Smokeless Tobacco: Never Alcohol Use Standard Drinks/Week Comments No 0 (1 standard drink = 0.6 oz pur e alcohol) Comments No Sex and Gender Information Value Date Recorded Sex Assigned at Not on file 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
--- OUTSIDE RECORDS SUMMARY | 2024-06-12 04:25 | XMS_ITS | Encounter Summary ---
Author Organization [facility] Healthcare Address [address] [place] [address] Care Team Providers Care Portfolio Assistant Name Role Phone Unavailable Primary Care Provider Unavailabl e Encounter Details Date Type Department Care Team (Late st Contact Info) Description 02/21/2007 9:55 PM CDT - 02/21/2007 10:30 PM CDT Hospital Encounter [facility] Lillian Pemberton Donald E., MD [address] [place] [id number] Social History Tobacco Use Types Packs/Day Years Used Date Smoking Tobacco: Never Assessed Comments Unknown Sex and Gender Information Value Date Recorded Sex Assigned at Not on file 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
== END 2024-06-05 11:10 | disposition home or self-care (01) ==
PROVIDERS: Emergency Provider Registered Nurse; PCP Internal Medicine
DX: U07.1 COVID-19 (principal)
CPT/HCPCS: 87426; 87804; 99212; G0463

== ENCOUNTER 2024-07-26 08:42 | Emergency (ER) | payer OTHER, SELFPAY ==
[2024-07-26 08:48] VITALS: BP 122/78; PULSE 93; RESP 20; TEMP 36.7; O2SAT 98
--- NOTE | 2024-07-26 09:09 | ED.URI ---
HPI - URI/Sore Throat General Chief Complaint: Upper Respiratory Infection Stated Complaint: flu/covid symptoms Time Seen by Provider: 07/26/24 09:14 Source: patient and RN notes reviewed Mode of arrival: ambulatory Limitations: no limitations History of Present Illness HPI Narrative: 59 y/o female presented for c/o sore throat, Headache, body aches, sinus pressure/congestion, cough, fever/chills. Onset 3 days. Says symptoms started out with wheezing which has resolved. Endorses the cough is productive at times. Taking ibuprofen. Denies sob, wheezing, n/v/d. MD elicited complaint: cough Related Data Allergies Allergy/AdvReac Type Severity Reaction Status Date / Time ciprofloxacin Allergy Unknown Unknown Verified 07/26/24 08:50 morphine Allergy Unknown Unknown Verified 07/26/24 08:50 Sulfa (Sulfonamide Allergy Unknown Unknown Verified 07/26/24 08:50 Antibiotics) Review of Systems Review of Systems: ROS per HPI PMFSH Past Medical History Medical History (Updated 07/26/24 @ 09:20 by Imelda Munson APRN) Bronchitis Social History Social History (Updated 06/05/24 @ 11:21 by Manuela Beaver NP) Alcohol intake: current Alcohol use details: rare social Substance use type: does not use Living arrangements: with family Gender identity (if verbalized by the patient): Female Exam Narrative: GENERAL: Ill-appearing, nontoxic no acute distress. EYES: conjunctivae clear ENT: Mucous membranes moist. TMs pearly russell with dull light reflex bilaterally; no tragal tenderness. Oropharynx erythematous without lesions or exudate, no drooling, no hoarseness, no trismus, uvula midline. No tripod positioning, muffled voice, soft palate or pharyngeal wall bulging NECK: Supple. No lymphadenopathy CHEST: Clear to auscultation, breath sounds equal. No wheezing, rhonchi, rales, or stridor. No respiratory distress, speaks in full sentences. HEART: Regular rate and rhythm. SKIN: Warm, dry, no rash. NEURO: Alert and oriented x3. PSYCH: Normal mood and affect Course Course Emergency Course: Patient is aware of diagnosis, understands and agrees to treatment plan. Anticipatory guidance given. Patient agrees to follow-up as directed and is aware of reasons to seek care at the emergency department. Portions of this record may have been created with voice recognition software Level of Care: Express Care Visit Vital Signs Vital signs: Vital Signs Temperature 98.1 F 07/26/24 08:48 Pulse Rate 93 07/26/24 08:48 Respiratory Rate 20 07/26/24 08:48 Blood Pressure 122/78 07/26/24 08:48 Pulse Oximetry 98 07/26/24 08:48 Oxygen Delivery Room Air 07/26/24 08:48 Temperature 98.1 F 07/26/24 08:48 Pulse Rate 93 07/26/24 08:48 Respiratory Rate 20 07/26/24 08:48 Blood Pressure 122/78 07/26/24 08:48 Pulse Oximetry 98 07/26/24 08:48 Oxygen Delivery Room Air 07/26/24 08:48 reviewed MDM - URI/Sore Throat MDM Narrative Medical decision making narrative: negative flu and COVID. Discussed physical exam findings. Advised supportive measures and signs/symptoms to go to the ER. Pt is appropriate for outpt treatment and f/u. Differential Diagnosis Differential diagnosis: Likely upper respiratory infection, sinusitis and viral infection Discharge Plan Discharge Clinical Impression: Bronchitis Patient Disposition: Home, Self-Care Condition: Stable Instructions: Antibiotic Form, Acute Bronchitis (ED) Additional Instructions: Flu and COVID negative Acute bronchitis can be contagious because it is usually caused by infection with a virus or bacteria. It is usually for a few days but you can be contagious for up to one week. Avoid crowds until you do not have a fever and symptoms are improved Take medication as directed Flonase spray and Zyrtec (or Claritin/Rafaela) over the counter Cough syrup may cause drowsiness; avoid driving or take it at night time. Tylenol 1000mg every 8 hours as needed for pain Symptomatic treatment includes: rest, fluids, and increase humidity of the air at home. Follow up with your primary care provider as needed in 1 week Go to the ER for worsening symptoms or concerns Patient Language: Marshallese Prescriptions: New benzonatate 200 mg capsule 200 mg PO TID PRN (Reason: cough) Qty: 20 0RF prednisone 20 mg tablet 40 mg PO DAILY 5 Days Qty: 10 0RF albuterol sulfate 90 mcg/actuation HFA aerosol inhaler 2 inh inhalation QID PRN (Reason: shortness of breath or wheezing) Qty: 8.5 0RF Follow-up/Referrals: Denia,Kaveh Kapoor MD [Primary Care Provider] - Stand Alone Forms: Work/School Release IP Time of Disposition: 09:21
[2024-07-26 09:16] LABS: EDCOVIDSCREEN Negative (Negative); EDINFLUASCREEN Negative (Negative); EDINFLUBSCREEN Negative (Negative)
== END 2024-07-26 09:25 | disposition home or self-care (01) ==
PROVIDERS: Emergency Provider Nurse Practitioner Family; PCP Internal Medicine
DX: J40 Bronchitis, not specified as acute or chronic (principal); Z20.822 Contact with and (suspected) exposure to COVID-19
CPT/HCPCS: 87426; 87804; 99213; G0463